=== PATIENT | female | born 1955 | race Caucasian/White ===

== ENCOUNTER 2016-11-25 17:40 | Emergency (ER) | payer BC ==
[2016-11-25] MEDS ORDERED: Sodium Chloride 0.9% 1,000 ML IV ONE (18:34)
[2016-11-25] MEDS ORDERED: Ondansetron 4 MG/2 ML SDV IVPUSH ONE (18:34)
[2016-11-25] MEDS ORDERED: Famotidine 20 MG/2 ML SDV IVPUSH ONE (18:34)
--- NOTE | 2016-11-25 19:08 | EDM.PDOC ---
ED HPI GI/ABDOMINAL - General Chief Complaint: Gastrointestinal Problem Stated Complaint: VOMITING Time Seen by Provider: 11/25/16 18:20 Source of Information: Reports: Patient, Family () History Limitations: Reports: No limitations, Other (vomiting during visit/exam) - History of Present Illness INITIAL COMMENTS - FREE TEXT/NARRATIVE: Caryn is a 61yo female comes into ED tonight with with nausea, vomiting, cough, fever, weakness and generally not feeling well. Symptoms started 3 weeks ago with sinus congestion symptoms that evolved into cough which has progressed over the past one week. She went to [facility] today and was rx'd "levaquin 500", which she took around 10:30am today. Sometime this afternoon she became nauseous and started vomiting. She has not been able to keep anything down since that time, not even water. She feels weak and dizzy, hot and cold. states "Dr. Clayton thought she was starting an early pneumonia". She is coughing but denies chest heaviness, pressure, pain, palpitations, SOB, wheezing. No diarrhea or constipation, no abd or back pain. She has hx of pacemaker, HTN, DM, GERD and asthma. - Related Data Allergies/ADRs: Allergies Allergy/AdvReac Type Severity Reaction Status Date / Time cefadroxil hydrate Allergy Hives Verified 05/31/16 19:17 [From Ultracef] hydrochlorothiazide Allergy Cannot Verified 05/31/16 19:17 Remember nitrofurantoin Allergy Hives Verified 11/25/16 17:51 [From Macrobid] Penicillins Allergy Rash Verified 05/31/16 19:17 flu shot Allergy Other Uncoded 10/05/14 11:43 Home Meds: Home Meds Aspirin [Ecotrin] 81 mg PO DAILY 04/17/14 [History] Losartan [Cozaar] 50 mg PO DAILY 04/17/14 [History] Metoprolol Succinate [Toprol XL] 12.5 mg PO DAILY 08/10/14 [History] Budesonide/Formoterol [Symbicort 80-4.5 MCG] 1 dose INH BID 05/31/16 [History] Levofloxacin [Levaquin] 500 mg PO Q24H #6 tablet 05/31/16 [Rx] Montelukast Sodium [Singulair] 10 mg PO DAILY 05/31/16 [History] Multivitamin [Multi-Vitamin Daily] 1 dose PO DAILY 05/31/16 [History] Pantoprazole Sodium [Protonix] 40 mg PO DAILY 05/31/16 [History] metFORMIN [Glucophage] 850 mg PO DAILY 05/31/16 [History] Past Medical History Cardiovascular History: Reports: High cholesterol, Hypertension Respiratory History: Reports: Asthma Gastrointestinal History: Reports: GERD Genitourinary History: Reports: UTI, recurrent Endocrine/Metabolic History: Reports: Diabetes, type II Social & Family History - Tobacco Use Smoking Status *Q: Never Smoker Second Hand Smoke Exposure: No - Caffeine Use Caffeine Use: Reports: Coffee - Alcohol Use Days Per Week of Alcohol Use: 0 Number of Drinks Per Day: 1 Total Drinks Per Week: 0 - Recreational Drug Use Recreational Drug Use: No ED ROS GENERAL - Review of Systems Review Of Systems: See Below Constitutional: Reports: chills, weakness, fatigue HEENT: Reports: Rhinitis, Sinus problem, Throat pain (sore throat x 3-5 days) Respiratory: Reports: Cough Cardiovascular: Denies: Chest pain, Dyspnea on exertion, Lightheadedness, Orthopnea, Palpitations Endocrine: Reports: other (DM hx; has not checked her sugars today) GI/Abdominal: Reports: Decreased appetite, Nausea, Vomiting. Denies: Abdominal pain, Constipation, Diarrhea, Hematemesis, Hematochezia : Reports: no symptoms Neurological: Reports: No Symptoms ED EXAM, GI/ABD - Physical Exam Exam: See Below Exam Limited By: No limitations General Appearance: alert, WD/WN, no apparent distress Eyes: bilateral: EOMI Ears: normal external exam, hearing grossly normal Nose: normal inspection Throat/Mouth: Normal inspection, Normal lips, Normal gums, Normal voice Head: atraumatic, normocephalic Neck: normal inspection, supple Respiratory/Chest: no respiratory distress, lungs clear, normal breath sounds Cardiovascular: regular rate, rhythm, no murmur, other (trace edema to ankles bilat; varicose veins noted bilat) GI/Abdominal: normal bowel sounds, soft, non tender, no organomegaly, no distention, no mass (Female) Exam: Deferred Rectal (Female) Exam: Deferred Extremities: normal inspection, pedal edema (trace to ankles/pedal) Neurological: alert, oriented, CN II-XII intact, normal cognition, normal gait Psychiatric: normal affect, normal mood Skin Exam: Warm, Dry, Intact, Normal color, No rash Course - Vital Signs Last Recorded V/S: Last Vital Signs Temp 99 F 11/25/16 17:51 Pulse 68 11/25/16 17:51 Resp 18 11/25/16 17:51 BP 164/107 H 11/25/16 17:51 Pulse Ox 97 11/25/16 17:51 - Orders/Labs/Meds Orders: Active Orders 24 hr Category Date Time Status Abdomen 2V AP Flat Upright [CR] Stat Exams 11/25/16 18:34 Taken Chest 2V [CR] Stat Exams 11/25/16 18:34 Taken Labs: Laboratory Tests 11/25/16 11/25/16 11/25/16 Range/Units 18:17 18:17 19:25 WBC 8.65 (3.98-10.04) K/mm3 RBC 4.54 (3.98-5.22) M/mm3 Hgb 13.3 (11.2-15.7) gm/L Hct 38.6 (34.1-44.9) % MCV 85.0 (79.4-94.8) fl MCH 29.3 (25.6-32.2) pg MCHC 34.5 (32.2-35.5) g/dl RDW Std Deviation 41.8 (36.4-46.3) fL Plt Count 224 (182-369) K/mm3 MPV 9.4 (9.4-12.3) fl Neut % (Auto) 73.5 H (34.0-71.1) % Lymph % (Auto) 18.3 L (19.3-51.7) % [place] % (Auto) 7.6 (4.7-12.5) % Eos % (Auto) 0.2 L (0.7-5.8) Baso % (Auto) 0.2 (0.1-1.2) % Neut # (Auto) 6.35 H (1.56-6.13) K/mm3 Lymph # (Auto) 1.58 (1.18-3.74) K/mm3 [place] # (Auto) 0.66 H (0.24-0.36) K/mm3 Eos # (Auto) 0.02 L (0.04-0.36) K/mm3 Baso # (Auto) 0.02 (0.01-0.08) K/mm3 Sodium 136 (136-145) mEq/L Potassium 3.9 (3.5-5.1) mEq/L Chloride 100 (98-107) mEq/L Carbon Dioxide 26 (21-32) mEq/L Anion Gap 13.9 (5-15) BUN 14 (7-18) mg/dL Creatinine 0.8 (0.55-1.02) mg/dL Est Cr Clr Drug Dosing 63.77 mL/min Estimated GFR (MDRD) > 60 (>60) mL/min BUN/Creatinine Ratio 17.5 (14-18) Glucose 184 H (80-115) mg/dL Calcium 9.1 (8.5-10.1) mg/dL Total Bilirubin 0.5 (0.2-1.0) mg/dL AST 30 (15-37) U/L ALT 69 H (14-59) U/L Alkaline Phosphatase 90 (46-116) U/L C-Reactive Protein 4.6 H* (<1.0) mg/dL Total Protein 7.3 (6.4-8.2) g/dl Albumin 3.9 (3.4-5.0) g/dl Globulin 3.4 gm/dL Albumin/Globulin Ratio 1.2 (1-2) Urine Color Yellow (Yellow) Urine Appearance Slt cloudy H (Clear) Urine pH 7.0 (5.0-8.0) Ur Specific [place] 1.025 (1.005-1.030) Urine Protein 1+ H (Negative) Urine Glucose (UA) Negative (Negative) Urine Ketones 2+ H (Negative) Urine Occult Blood Negative (Negative) Urine Nitrite Negative (Negative) Urine Bilirubin Negative (Negative) Urine Urobilinogen 0.2 (0.2-1.0) Ur Leukocyte Esterase Negative (Negative) Urine RBC Not seen (0-5) /hpf Urine WBC 0-5 (0-5) /hpf Ur Squamous Epith Cells 5-10 H (0-5) /hpf Amorphous Sediment Few H (NOT SEEN) /hpf Urine Bacteria Few (FEW) /hpf Urine Mucus Moderate H (FEW) /hpf Meds: Medications Discontinued Medications Generic Name Dose Route Start Last Admin Trade Name Freq PRN Reason Stop Dose Admin Famotidine 20 mg 11/25/16 18:34 11/25/16 18:45 Pepcid IVPUSH 11/25/16 18:35 20 mg ONETIME ONE Administration Sodium Chloride 1,000 mls @ 999 mls/hr 11/25/16 18:34 11/25/16 18:44 Normal Saline IV 11/25/16 19:34 999 mls/hr ONETIME ONE Administration Ondansetron HCl 4 mg 11/25/16 18:34 11/25/16 18:45 Zofran IVPUSH 11/25/16 18:35 4 mg ONETIME ONE Administration - Radiology Interpretation Free Text/Narrative:: CXR without acute infiltrates or consolidation noted by my independent review; awaiting [facility] final review Abdominal films with bowel gas, nonspecific, no air fluid levels or acute findings; by my independent review; awaiting [facility] final review/interp. - Re-Assessments/Exams Free Text/Narrative Re-Assessment/Exam: 11/25/16 19:14 Labs ordered; fluids and IV zofran/pepcid orders placed Free Text/Narrative Re-Assessment/Exam: 11/25/16 19:57 Nausea improved/no further vomiting. 600cc IV bag infused then patient's IV got pulled out, she deferred another IV stick and has been able to tolerate PO fluids now. Reviewed all lab findings and xray findings with patient and tonight. Will discharge her with rx for zofran ODT, she is to continue levaquin PO- if further nausea/vomiting after dose tomorrow she is to stop and contact Dr. Newby office on Sunday. They voice understanding and are in agreeance to POC. Departure - Departure Time of Disposition: 19:58 Disposition: Home, Self-Care 01 Clinical Impression: Nausea and vomiting in adult URI (upper respiratory infection) Qualifiers: URI type: unspecified URI Qualified Code(s): J06.9 - Acute upper respiratory infection, unspecified Instructions: Nausea and Vomiting, Adult, [id number] Forms: ED Department Discharge Additional Instructions: Push fluids Zofran for nausea every 4 hours as needed Continue Levaquin as previously prescribed; if you become nauseated/vomit with next dose, discontinue and contact your primary care provider on Sunday for further instruction. Tylenol if needed for fever/discomfort Pepcid or omeprazole twice daily for the next 3-4 days, tums if needed Return to ER if nausea/vomiting return, other ?'s or concerns - My Orders Last 24 Hours: My Active Orders 11/25/16 18:34 Abdomen 2V AP Flat Upright [CR] Stat Chest 2V [CR] Stat - Assessment/Plan Last 24 Hours: My Active Orders 11/25/16 18:34 Abdomen 2V AP Flat Upright [CR] Stat Chest 2V [CR] Stat
[2016-11-25] MEDS ORDERED: Promethazine 25 MG/ML SDV IM ONE (20:01)
[2016-11-25 20:54] VITALS: BP 148/79
--- NOTE | 2016-11-27 06:52 | CR ---
Chest: Two views of the chest were obtained. Comparison: Previous chest x-ray of 07/19/15. Heart size at the upper limits of normal. Lungs are clear with no acute infiltrates. Mediastinum is within normal limits. Surgical clips overlying the neck are seen. Pacemaker is noted. Impression: 1. Heart size at the upper limits of normal. Other incidental findings. Nothing acute is appreciated on two-view chest x-ray. Diagnostic code #2
--- NOTE | 2016-11-27 06:53 | CR ---
Abdomen: Supine and upright views of the abdomen were obtained. Comparison: No previous abdominal x-ray Findings: Bowel gas pattern appears unremarkable. Calcifications are seen within the pelvis which are most likely due to phleboliths. Mild arterial calcification is noted within the iliac vessels. Minimal degenerative endplate spurring seen within the spine. Surgical clips seen from prior cholecystectomy. No free air is seen. Impression: 1. Nonspecific two-view study of the abdomen as described above. Diagnostic code #2
== END 2016-11-25 20:26 | disposition home or self-care (01) ==
LOC: JD.ED 17:40
DX: R11.2 Nausea with vomiting, unspecified (principal); J06.9 Acute upper respiratory infection, unspecified; I10 Essential (primary) hypertension; J45.909 Unspecified asthma, uncomplicated; K21.9 Gastro-esophageal reflux disease without esophagitis; E11.9 Type 2 diabetes mellitus without complications; Z79.84 Long term (current) use of oral hypoglycemic drugs; Z79.899 Other long term (current) drug therapy; Z79.82 Long term (current) use of aspirin; Z88.7 Allergy status to serum and vaccine; Z88.0 Allergy status to penicillin; Z88.8 Allergy status to other drugs, medicaments and biological substances
CPT/HCPCS: 36415; 71020; 74020; 80053; 81001; 85025; 86140; 96361; 96372; 96374; 96375; 99284; J2405; J2550; J7040

== ENCOUNTER 2017-01-08 13:16 | Emergency (ER) | payer BC ==
--- NOTE | 2017-01-08 13:26 | EDM.PDOC ---
ED HISTORY OF PRESENT ILLNESS - General Chief Complaint: Chest Pain Stated Complaint: CHEST PAINS/LEFT ARM PAIN Time Seen by Provider: 01/08/17 13:23 - History of Present Illness INITIAL COMMENTS - FREE TEXT/NARRATIVE: 61-year-old female presents emergency room with chest pain. Patient describes chest pain as lasting a few seconds certainly no more than 10 or 15 seconds it occurs about every 10 minutes or so it doesn't seem to correlate with rest or activity it can occur with both. This started early this morning and has continued. The patient cannot do anything to trigger it and make it worse. Deep breathing does not aggravate the discomfort. Patient has a history of diabetes treated with oral medications she is treated for hypertension hyperlipidemia. Patient has a remarkable history of having a pacemaker placed sometime back of what sounds like sick sinus syndrome. She had symptomatic bradycardia. - Related Data Allergies/ADRs: Allergies Allergy/AdvReac Type Severity Reaction Status Date / Time cefadroxil hydrate Allergy Hives Verified 01/08/17 13:31 [From Ultracef] hydrochlorothiazide Allergy Cannot Verified 01/08/17 13:31 Remember nitrofurantoin Allergy Hives Verified 01/08/17 13:31 [From Macrobid] Penicillins Allergy Rash Verified 01/08/17 13:31 flu shot Allergy Other Uncoded 01/08/17 13:31 Home Meds: Home Meds Aspirin [Ecotrin] 81 mg PO DAILY 04/17/14 [History] Losartan [Cozaar] 50 mg PO DAILY 04/17/14 [History] Metoprolol Succinate [Toprol XL] 25 mg PO DAILY 08/10/14 [History] Budesonide/Formoterol [Symbicort 80-4.5 MCG] 1 dose INH DAILY 05/31/16 [History] Montelukast Sodium [Singulair] 10 mg PO DAILY 05/31/16 [History] Multivitamin [Multi-Vitamin Daily] 1 dose PO DAILY 05/31/16 [History] Pantoprazole Sodium [Protonix] 40 mg PO DAILY 05/31/16 [History] metFORMIN [Glucophage] 850 mg PO DAILY 05/31/16 [History] Cholecalciferol (Vitamin D3) [Vitamin D3] 1,000 units PO DAILY 01/08/17 [History ] Cranberry Fruit Concentrate [Cran-Max] 500 mg PO DAILY 01/08/17 [History] Gabapentin [Neurontin] 300 mg PO DAILY 01/08/17 [History] Past Medical History Cardiovascular History: Reports: High cholesterol, Hypertension Respiratory History: Reports: Asthma Gastrointestinal History: Reports: GERD Genitourinary History: Reports: UTI, recurrent Endocrine/Metabolic History: Reports: Diabetes, type II Social & Family History - Tobacco Use Smoking Status *Q: Never Smoker Second Hand Smoke Exposure: No - Caffeine Use Caffeine Use: Reports: Coffee - Alcohol Use Days Per Week of Alcohol Use: 0 Number of Drinks Per Day: 1 Total Drinks Per Week: 0 - Recreational Drug Use Recreational Drug Use: No ED ROS GENERAL - Review of Systems Review Of Systems: See Below Constitutional: Reports: no symptoms HEENT: Reports: No symptoms Respiratory: Reports: Pleuritic Chest Pain. Denies: Shortness of Breath, Cough , Sputum Cardiovascular: Reports: Chest pain GI/Abdominal: Reports: No symptoms : Reports: no symptoms Neurological: Reports: No Symptoms ED EXAM, GENERAL - Physical Exam Exam: See Below Exam Limited By: No limitations General Appearance: alert, no apparent distress Eye Exam: bilateral eye: normal inspection Ears: normal external exam, normal canal, hearing grossly normal, normal TMs Nose: normal inspection Throat/Mouth: Normal inspection, Normal lips, Normal teeth, Normal gums, Normal oropharynx, Normal voice, No airway compromise Head: atraumatic, normocephalic Neck: normal inspection, supple, non-tender, full range of motion. No: lymphadenopathy (L), lymphadenopathy (R) Respiratory/Chest: no respiratory distress, lungs clear, normal breath sounds Cardiovascular: regular rate, rhythm, no edema, no murmur GI/Abdominal: normal bowel sounds, soft, non tender, no organomegaly, no distention, no abnormal bruit, no mass Neurological: alert, oriented, normal cognition Course - Vital Signs Last Recorded V/S: Last Vital Signs Temp 36.3 C 01/08/17 13:20 Pulse 77 01/08/17 13:20 Resp 18 01/08/17 13:20 BP 161/93 H 01/08/17 13:20 Pulse Ox 100 01/08/17 13:20 - Orders/Labs/Meds Orders: Active Orders 24 hr Category Date Time Status EKG 12 Lead [EKG Documentation Completion] [RC] STAT Care 01/08/17 13:26 Active Labs: Laboratory Tests 05/04/1901/08/17 01/08/17 Range/Units 13:40 14:25 14:25 WBC 7.95 (3.98-10.04) K/mm3 RBC 4.86 (3.98-5.22) M/mm3 Hgb 13.9 (11.2-15.7) gm/L Hct 42.8 (34.1-44.9) % MCV 88.1 (79.4-94.8) fl MCH 28.6 (25.6-32.2) pg MCHC 32.5 (32.2-35.5) g/dl RDW Std Deviation 44.8 (36.4-46.3) fL Plt Count 283 (182-369) K/mm3 MPV 10.4 (9.4-12.3) fl Neutrophils % (Manual) 66 H (40-60) % Band Neutrophils % 0 (0-10) % Lymphocytes % (Manual) 24 (20-40) % Atypical Lymphs % 0 % Monocytes % (Manual) 7 (2-10) % Eosinophils % (Manual) 3 (0.7-5.8) % Basophils % (Manual) 0 L (0.1-1.2) Platelet Estimate Adequate Plt Morphology Comment Normal RBC Morph Comment Normal PT 10.4 (8.0-13.0) SECONDS INR 0.96 APTT 26 (22-36) SECONDS Sodium 140 (136-145) mEq/L Potassium 4.0 (3.5-5.1) mEq/L Chloride 104 (98-107) mEq/L Carbon Dioxide 29 (21-32) mEq/L Anion Gap 11.0 (5-15) BUN 20 H (7-18) mg/dL Creatinine 1.0 (0.55-1.02) mg/dL Est Cr Clr Drug Dosing 51.02 mL/min Estimated GFR (MDRD) 56 (>60) mL/min BUN/Creatinine Ratio 20.0 H (14-18) Glucose 131 H (80-115) mg/dL Calcium 9.3 (8.5-10.1) mg/dL Total Bilirubin 0.4 (0.2-1.0) mg/dL AST 31 (15-37) U/L ALT 59 (14-59) U/L Alkaline Phosphatase 89 (46-116) U/L Troponin I < 0.017 (0.00-0.056) ng/mL Total Protein 7.3 (6.4-8.2) g/dl Albumin 3.8 (3.4-5.0) g/dl Globulin 3.5 gm/dL Albumin/Globulin Ratio 1.1 (1-2) Meds: Medications Discontinued Medications Generic Name Dose Route Start Last Admin Trade Name Perri PRN Reason Stop Dose Admin Aspirin 324 mg 01/08/17 13:39 01/08/17 13:46 Aspirin PO 01/08/17 13:40 324 mg ONETIME ONE Administration - Re-Assessments/Exams Free Text/Narrative Re-Assessment/Exam: 01/08/17 16:19 chest x-ray is unremarkable EKG shows an atrial paced rhythm without any evidence of ischemia she has no Q waves. Labs show negative troponin. Otherwise unremarkable the patient has a heart score of 3. 2 points given for her diabetes hypertension hyperlipidemia her ages 61 which gives her a point. Discussed the risk of major acute coronary event at 1.7% and the implications of this. I offered we did recheck a second troponin which limits this even more however the patient would like to go home. She is in agreement to followup this week with an outpatient stress Cardiolite. Departure - Departure Time of Disposition: 16:22 Disposition: Home, Self-Care 01 Clinical Impression: Atypical chest pain Forms: ED Department Discharge Additional Instructions: return to emergency room with any questions or problems. Return with worsening or persistent chest pain. Followup for your stress Cardiolite, this is a stress test for your heart. You should be contacted as to time for this. Followup with your regular physician a couple of days after this is done. - My Orders Last 24 Hours: My Active Orders 01/08/17 13:26 EKG 12 Lead [EKG Documentation Completion] [RC] STAT - Assessment/Plan Last 24 Hours: My Active Orders 01/08/17 13:26 EKG 12 Lead [EKG Documentation Completion] [RC] STAT
[2017-01-08] MEDS ORDERED: Aspirin 81 MG Tab.Chew PO ONE (13:39)
--- NOTE | 2017-01-08 14:51 | CR ---
Chest: Portable view of the chest was obtained. Comparison: Previous chest x-ray of 11/25/16. Heart size and mediastinum are within normal limits for portable technique. Pacemaker is noted. Lungs are clear. Bony structures are grossly intact. Surgical clips are seen at the base of the neck or within the cervical spine. Impression: 1. Incidental findings. Nothing acute is appreciated on portable chest x-ray. Diagnostic code #2
[2017-01-08 16:39] VITALS: BP 161/87
== END 2017-01-08 16:30 | disposition home or self-care (01) ==
LOC: JD.ED 13:16
DX: R07.89 Other chest pain (principal); I10 Essential (primary) hypertension; E78.00 Pure hypercholesterolemia, unspecified; J45.909 Unspecified asthma, uncomplicated; K21.9 Gastro-esophageal reflux disease without esophagitis; E11.9 Type 2 diabetes mellitus without complications; Z79.82 Long term (current) use of aspirin; Z79.84 Long term (current) use of oral hypoglycemic drugs; Z79.899 Other long term (current) drug therapy; Z88.0 Allergy status to penicillin; Z88.8 Allergy status to other drugs, medicaments and biological substances; Z88.7 Allergy status to serum and vaccine; Z95.0 Presence of cardiac pacemaker
CPT/HCPCS: 36415; 71010; 80053; 84484; 85025; 85610; 85730; 93005; 99285; A9270; 99283

== ENCOUNTER 2017-06-12 22:31 | Emergency (ER) | payer BC ==
[2017-06-12 22:40] VITALS: BP 175/91
--- NOTE | 2017-06-13 00:52 | EDM.PDOC ---
ED HPI GENERAL MEDICAL PROBLEM - General Chief Complaint: Chest Pain Stated Complaint: CHEST PAIN Time Seen by Provider: 06/12/17 23:33 Source of Information: Reports: Patient, Family (), RN Notes Reviewed History Limitations: Reports: No Limitations - History of Present Illness INITIAL COMMENTS - FREE TEXT/NARRATIVE: The patient states that she developed left-sided chest pain, left scapular pain , and left shoulder pain around 22:00 tonight while going to the bathroom. The patient had previously been in bed. She describes the pain as sharp in character. It was a pain, not a discomfort. It was not modifiable. The patient reports that she has been dyspneic for about one week, and that it is no worse tonight. She denies recent diaphoresis, nausea, or sense of impending doom. No prior similar symptoms. Review of the medical records indicates the patient had a negative myocardial perfusion stress test on 01/11/2017. The patient reports that her entire chest and left lower back has had the sensation of heartburn or an asthma exacerbation for the past week. She saw her PCP, Dr. Samia Andrea, where an ECG and chest radiograph were done, and reported to the patient is negative. No treatment was given, but the patient was instructed to restart her Flovent. She is scheduled to follow-up with her hand singer, Dr. Vazquez. Treatments [employer]: Reports: Aspirin Left Chest Pain Score (Numeric/FACES): 3 - Related Data Allergies Allergy/AdvReac Type Severity Reaction Status Date / Time cefadroxil hydrate Allergy Hives Verified 01/08/17 13:31 [From Ultracef] hydrochlorothiazide Allergy Cannot Verified 01/08/17 13:31 Remember nitrofurantoin Allergy Hives Verified 01/08/17 13:31 [From Macrobid] Penicillins Allergy Rash Verified 01/08/17 13:31 flu shot Allergy Other Uncoded 01/08/17 13:31 Home Meds: Home Meds Aspirin [Ecotrin] 81 mg PO DAILY 04/17/14 [History] Losartan [Cozaar] 50 mg PO DAILY 04/17/14 [History] Metoprolol Succinate [Toprol XL] 25 mg PO DAILY 08/10/14 [History] Montelukast Sodium [Singulair] 10 mg PO DAILY 05/31/16 [History] Multivitamin [Multi-Vitamin Daily] 1 dose PO DAILY 05/31/16 [History] Pantoprazole Sodium [Protonix] 40 mg PO DAILY 05/31/16 [History] metFORMIN [Glucophage] 850 mg PO DAILY 05/31/16 [History] Cholecalciferol (Vitamin D3) [Vitamin D3] 1,000 units PO DAILY 01/08/17 [History ] Cranberry Fruit Concentrate [Cran-Max] 500 mg PO DAILY 01/08/17 [History] Gabapentin [Neurontin] 300 mg PO DAILY 01/08/17 [History] Fluticasone Propionate [Flovent Hfa] 1 - 2 puff INH BTNUNITS 06/12/17 [History] Past Medical History Cardiovascular History: Reports: Arrhythmia (3rd degree AVB?), High Cholesterol , Hypertension Respiratory History: Reports: Asthma Gastrointestinal History: Reports: Colon Polyp, GERD, Other (See Below) ( Garrettzki ring) Genitourinary History: Reports: Urinary Incontinence (stress incontinence) Musculoskeletal History: Reports: Osteoarthritis Neurological History: Reports: Other (See Below) ([place] 2011) Endocrine/Metabolic History: Reports: Diabetes, Type II, Obesity/BMI 30+ Oncologic (Cancer) History: Reports: Other (See Below) (Carcinoid left lung) - Past Surgical History HEENT Surgical History: Reports: Naso-Sinus Surgery, Oral Surgery ([place] teeth extraction), Tonsillectomy Cardiovascular Surgical History: Reports: Pacer, Other (See Below) (Coronary angiogram 2008 was "clean") Respiratory Surgical History: Reports: Other (See Below) (Left carcinoid tumor excised) GI Surgical History: Reports: Cholecystectomy, Colonoscopy, EGD Female Surgical History: Reports: D&C (x 1), Hysterectomy, Tubal Ligation Musculoskeletal Surgical History: Reports: Arthroscopic Knee Social & Family History - Family History Family Medical History: Noncontributory - Tobacco Use Smoking Status *Q: Never Smoker Second Hand Smoke Exposure: No - Caffeine Use Caffeine Use: Reports: None - Alcohol Use Alcohol Use History: Yes Days Per Week of Alcohol Use: 0 Number of Drinks Per Day: 1 Total Drinks Per Week: 0 Alcohol Use Frequency: Socially - Recreational Drug Use Recreational Drug Use: No - Living Situation & Occupation Living situation: Reports: , with Spouse Occupation: Employed ([employer]) ED [facility] - Review of Systems Review Of Systems: See Below Constitutional: Reports: No Symptoms HEENT: Reports: No Symptoms Respiratory: Reports: Shortness of Breath, Cough Cardiovascular: Reports: No Symptoms Endocrine: Reports: No Symptoms GI/Abdominal: Reports: No Symptoms : Reports: No Symptoms Musculoskeletal: Reports: No Symptoms Skin: Reports: No Symptoms Neurological: Reports: No Symptoms Psychiatric: Reports: No Symptoms Hematologic/Lymphatic: Reports: No Symptoms Immunologic: Reports: No Symptoms ED EXAM, GENERAL - Physical Exam Exam: See Below Exam Limited By: No Limitations General Appearance: Alert, WD/WN, No Apparent Distress Eye Exam: Bilateral Eye: Normal Inspection Ears: Normal External Exam, Hearing Grossly Normal Nose: Normal Inspection, No Blood Throat/Mouth: Normal Inspection, Normal Lips, Normal Voice, No Airway Compromise Head: Atraumatic, Normocephalic Neck: Normal Inspection, Full Range of Motion Respiratory/Chest: No Respiratory Distress, Lungs Clear, Normal Breath Sounds, No Accessory Muscle Use, Other (Tenderness to palpation of the left chest, where the patient had indicated she was having pain, however, she stated that the pain induced with palpation is different than the pain that brought her to the ED.) Cardiovascular: Normal Peripheral Pulses, Regular Rate, Rhythm, No Gallop, No JVD, No Murmur, No Rub Peripheral Pulses: 4+: Radial (L), Radial (R) GI/Abdominal: Normal Bowel Sounds, Soft, Non-Tender, No Organomegaly, No Distention, No Abnormal Bruit, No Mass, Other (Obese) (Female) Exam: Deferred Rectal (Female) Exam: Deferred Back Exam: Normal Inspection, Full Range of Motion, NT Extremities: Normal Inspection, Normal Range of Motion, No Pedal Edema, Normal Capillary Refill Neurological: Alert, Oriented, Normal Cognition, No Motor/Sensory Deficits Psychiatric: Normal Affect Skin Exam: Warm, Dry, Intact, Normal Color, No Rash EKG INTERPRETATION EKG Date: 06/12/17 Time: 22:37 Rhythm: NSR Rate (Beats/Min): 72 [place]: Normal P-Wave: Present QRS: Normal ST-T: Normal QT: Normal Comparison: No Change (01/08/2017) Course - Vital Signs Last Recorded V/S: Last Vital Signs Temp 36.2 C 06/12/17 22:36 Pulse 70 06/12/17 22:36 Resp 17 06/12/17 22:36 BP 175/91 H 06/12/17 22:36 Pulse Ox 99 06/12/17 22:36 - Orders/Labs/Meds Labs: Laboratory Tests 06/12/17 06/12/17 06/12/17 Range/Units 22:50 22:50 22:50 WBC 17.16 H (3.98-10.04) K/mm3 RBC 4.59 (3.98-5.22) M/mm3 Hgb 13.3 (11.2-15.7) gm/L Hct 40.1 (34.1-44.9) % MCV 87.4 (79.4-94.8) fl MCH 29.0 (25.6-32.2) pg MCHC 33.2 (32.2-35.5) g/dl RDW Std Deviation 43.2 (36.4-46.3) fL Plt Count 270 (182-369) K/mm3 MPV 10.1 (9.4-12.3) fl Neut % (Auto) 69.8 (34.0-71.1) % Lymph % (Auto) 19.2 L (19.3-51.7) % [place] % (Auto) 9.8 (4.7-12.5) % Eos % (Auto) 0.7 (0.7-5.8) Baso % (Auto) 0.1 (0.1-1.2) % Neut # (Auto) 11.97 H (1.56-6.13) K/mm3 Lymph # (Auto) 3.29 (1.18-3.74) K/mm3 [place] # (Auto) 1.69 H (0.24-0.36) K/mm3 Eos # (Auto) 0.12 (0.04-0.36) K/mm3 Baso # (Auto) 0.02 (0.01-0.08) K/mm3 Manual Slide Review Normal smear PT 10.3 (8.0-13.0) SECONDS INR 0.95 APTT 24 (22-36) SECONDS D-Dimer, Quantitative (0.19-0.59) mg/L Sodium (136-145) mEq/L Potassium (3.5-5.1) mEq/L Chloride (98-107) mEq/L Carbon Dioxide (21-32) mEq/L Anion Gap (5-15) BUN (7-18) mg/dL Creatinine (0.55-1.02) mg/dL Est Cr Clr Drug Dosing mL/min Estimated GFR (MDRD) (>60) mL/min BUN/Creatinine Ratio (14-18) Glucose (80-115) mg/dL Calcium (8.5-10.1) mg/dL Total Bilirubin (0.2-1.0) mg/dL AST (15-37) U/L ALT (14-59) U/L Alkaline Phosphatase (46-116) U/L Troponin I < 0.017 (0.00-0.056) ng/mL NT-Pro-B Natriuret Pep (0-125) pg/mL Total Protein (6.4-8.2) g/dl Albumin (3.4-5.0) g/dl Globulin gm/dL Albumin/Globulin Ratio (1-2) Urine Color (Yellow) Urine Appearance (Clear) Urine pH (5.0-8.0) Ur Specific [place] (1.005-1.030) Urine Protein (Negative) Urine Glucose (UA) (Negative) Urine Ketones (Negative) Urine Occult Blood (Negative) Urine Nitrite (Negative) Urine Bilirubin (Negative) Urine Urobilinogen (0.2-1.0) Ur Leukocyte Esterase (Negative) Urine RBC (0-5) /hpf Urine WBC (0-5) /hpf Ur Epithelial Cells (0-5) /hpf Urine Bacteria (FEW) /hpf Urine Mucus (FEW) /hpf 06/12/17 06/12/17 06/12/17 Range/Units 22:50 22:50 22:50 WBC (3.98-10.04) K/mm3 RBC (3.98-5.22) M/mm3 Hgb (11.2-15.7) gm/L Hct (34.1-44.9) % MCV (79.4-94.8) fl MCH (25.6-32.2) pg MCHC (32.2-35.5) g/dl RDW Std Deviation (36.4-46.3) fL Plt Count (182-369) K/mm3 MPV (9.4-12.3) fl Neut % (Auto) (34.0-71.1) % Lymph % (Auto) (19.3-51.7) % [place] % (Auto) (4.7-12.5) % Eos % (Auto) (0.7-5.8) Baso % (Auto) (0.1-1.2) % Neut # (Auto) (1.56-6.13) K/mm3 Lymph # (Auto) (1.18-3.74) K/mm3 [place] # (Auto) (0.24-0.36) K/mm3 Eos # (Auto) (0.04-0.36) K/mm3 Baso # (Auto) (0.01-0.08) K/mm3 Manual Slide Review PT (8.0-13.0) SECONDS INR APTT (22-36) SECONDS D-Dimer, Quantitative 0.54 (0.19-0.59) mg/L Sodium 139 (136-145) mEq/L Potassium 4.3 (3.5-5.1) mEq/L Chloride 102 (98-107) mEq/L Carbon Dioxide 27 (21-32) mEq/L Anion Gap 14.3 (5-15) BUN 33 H (7-18) mg/dL Creatinine 1.1 H (0.55-1.02) mg/dL Est Cr Clr Drug Dosing 46.38 mL/min Estimated GFR (MDRD) 50 (>60) mL/min BUN/Creatinine Ratio 30.0 H (14-18) Glucose 147 H (80-115) mg/dL Calcium 9.7 (8.5-10.1) mg/dL Total Bilirubin 0.3 (0.2-1.0) mg/dL AST 14 L (15-37) U/L ALT 31 (14-59) U/L Alkaline Phosphatase 86 (46-116) U/L Troponin I (0.00-0.056) ng/mL NT-Pro-B Natriuret Pep 100 (0-125) pg/mL Total Protein 7.5 (6.4-8.2) g/dl Albumin 3.8 (3.4-5.0) g/dl Globulin 3.7 gm/dL Albumin/Globulin Ratio 1.0 (1-2) Urine Color (Yellow) Urine Appearance (Clear) Urine pH (5.0-8.0) Ur Specific [place] (1.005-1.030) Urine Protein (Negative) Urine Glucose (UA) (Negative) Urine Ketones (Negative) Urine Occult Blood (Negative) Urine Nitrite (Negative) Urine Bilirubin (Negative) Urine Urobilinogen (0.2-1.0) Ur Leukocyte Esterase (Negative) Urine RBC (0-5) /hpf Urine WBC (0-5) /hpf Ur Epithelial Cells (0-5) /hpf Urine Bacteria (FEW) /hpf Urine Mucus (FEW) /hpf 06/13/17 Range/Units 00:45 WBC (3.98-10.04) K/mm3 RBC (3.98-5.22) M/mm3 Hgb (11.2-15.7) gm/L Hct (34.1-44.9) % MCV (79.4-94.8) fl MCH (25.6-32.2) pg MCHC (32.2-35.5) g/dl RDW Std Deviation (36.4-46.3) fL Plt Count (182-369) K/mm3 MPV (9.4-12.3) fl Neut % (Auto) (34.0-71.1) % Lymph % (Auto) (19.3-51.7) % [place] % (Auto) (4.7-12.5) % Eos % (Auto) (0.7-5.8) Baso % (Auto) (0.1-1.2) % Neut # (Auto) (1.56-6.13) K/mm3 Lymph # (Auto) (1.18-3.74) K/mm3 [place] # (Auto) (0.24-0.36) K/mm3 Eos # (Auto) (0.04-0.36) K/mm3 Baso # (Auto) (0.01-0.08) K/mm3 Manual Slide Review PT (8.0-13.0) SECONDS INR APTT (22-36) SECONDS D-Dimer, Quantitative (0.19-0.59) mg/L Sodium (136-145) mEq/L Potassium (3.5-5.1) mEq/L Chloride (98-107) mEq/L Carbon Dioxide (21-32) mEq/L Anion Gap (5-15) BUN (7-18) mg/dL Creatinine (0.55-1.02) mg/dL Est Cr Clr Drug Dosing mL/min Estimated GFR (MDRD) (>60) mL/min BUN/Creatinine Ratio (14-18) Glucose (80-115) mg/dL Calcium (8.5-10.1) mg/dL Total Bilirubin (0.2-1.0) mg/dL AST (15-37) U/L ALT (14-59) U/L Alkaline Phosphatase (46-116) U/L Troponin I (0.00-0.056) ng/mL NT-Pro-B Natriuret Pep (0-125) pg/mL Total Protein (6.4-8.2) g/dl Albumin (3.4-5.0) g/dl Globulin gm/dL Albumin/Globulin Ratio (1-2) Urine Color Yellow (Yellow) Urine Appearance Clear (Clear) Urine pH 6.0 (5.0-8.0) Ur Specific [place] 1.015 (1.005-1.030) Urine Protein Negative (Negative) Urine Glucose (UA) Negative (Negative) Urine Ketones Negative (Negative) Urine Occult Blood Negative (Negative) Urine Nitrite Negative (Negative) Urine Bilirubin Negative (Negative) Urine Urobilinogen 0.2 (0.2-1.0) Ur Leukocyte Esterase Negative (Negative) Urine RBC Not seen (0-5) /hpf Urine WBC 0-5 (0-5) /hpf Ur Epithelial Cells 0-5 (0-5) /hpf Urine Bacteria Few (FEW) /hpf Urine Mucus Not seen (FEW) /hpf - Re-Assessments/Exams Free Text/Narrative Re-Assessment/Exam: 06/13/17 00:10 Two-view chest radiograph appears to be grossly normal. Cardiac silhouette is is at the upper limits of normal. No pulmonary vascular congestion. No pleural effusions. No focal infiltrate. No pneumothorax. A left-sided 2- chamber pacer is noted. Formal read per the Radiologist pending. 06/13/17 01:44 Test results discussed with the patient and her . Today's workup is entirely unremarkable, with the exception of a WBC count elevated at 17.16 and her blood glucose being elevated at 147. The patient notes that she had steroid injections of her knees recently. As per the history of present illness, the patient had a negative myocardial perfusion stress test on 01/11/2017. I suspect that her current chest pain is musculoskeletal in etiology, although the patient believes that it is likely due to GERD, which is possible. I explained that sometimes patient's PPIs a single he stopped working, and that they need to be switched to a different one. She states that she will be undergoing an EGD within a month. Departure - Departure Time of Disposition: :49 Disposition: Home, Self-Care 01 Condition: Good Clinical Impression: Non-cardiac chest pain Instructions: Nonspecific Chest Pain Referrals: Samia Andrea MD [Primary Care Provider] - Forms: ED Department Discharge Additional Instructions: You were seen in the emergency room for left-sided chest pain going to your left shoulder blade and left shoulder. Workup in the ER included blood work, an ECG, and a chest x-ray. Your workup was remarkable for an elevated WBC count of 17.16, and elevated blood sugar of 147. Recent steroid injections may be responsible for both, although you have a known history of diabetes. There is no finding that you have an infection. The remainder of her workup was entirely unremarkable. Your chest pain was MOST LIKELY musculoskeletal in etiology, although GERD is possible. We recommend that you notify the office of your PCP, Dr. Samia Andrea, of your ER visit. If any other problems, please do not hesitate to return to the ER.
--- NOTE | 2017-06-13 08:21 | CR ---
Chest: Two views of the chest were obtained. Comparison: Previous chest x-ray of 01/08/17. Heart size is normal. Mild tortuosity of the thoracic aorta is seen. Previous cervical spine surgery is noted. Bichamber pacemaker is seen. Lungs are clear with no acute infiltrates. Slight degenerative spurring is noted within the lower thoracic spine. Impression: 1. Nothing acute is identified on two-view chest x-ray. Diagnostic code #2
== END 2017-06-13 02:07 | disposition home or self-care (01) ==
LOC: JD.ED 22:31
DX: R07.89 Other chest pain (principal); E78.00 Pure hypercholesterolemia, unspecified; I10 Essential (primary) hypertension; J45.909 Unspecified asthma, uncomplicated; K21.9 Gastro-esophageal reflux disease without esophagitis; E11.9 Type 2 diabetes mellitus without complications; Z88.0 Allergy status to penicillin; Z79.82 Long term (current) use of aspirin; Z79.899 Other long term (current) drug therapy; Z88.8 Allergy status to other drugs, medicaments and biological substances
CPT/HCPCS: 36415; 71020; 71020-26; 80053; 81001; 83880; 84484; 85025; 85379; 85610; 85730; 93005; 93010; 99285-25

== ENCOUNTER 2017-06-27 06:55 | Day surgery (SDC) | payer BC ==
[~2017-06-27 06:55] MED LIST: Lactated Ringers 1,000 ML IV SCH; Lidocaine 1%/Sod Bicarbonate in NS 8.4% 1 ML Syringe IV PRN; Sodium Chloride 0.9% 10 ML Syringe FLUSH PRN
[2017-06-27] MEDS ORDERED: fentaNYL 100 MCG/2 ML SDV ONE (07:27)
[2017-06-27] MEDS ORDERED: Midazolam 1 MG/ML 2 ML SDV ONE (07:27)
[2017-06-27] MEDS ORDERED: Propofol 200 MG/20 ML SDV ONE ×2 (07:27→08:10)
[2017-06-27] MEDS ORDERED: Lidocaine 1% 4 ML ONE (07:29)
--- NOTE | 2017-06-27 07:36 | PCM.PREANE ---
Preanesthetic Assessment - Anesthesia/Transfusion/Family Hx Anesthesia History: Prior Anesthesia Reaction (nausea) Family History of Anesthesia Reaction: Yes (nausea) Transfusion History: No Prior Transfusion(s) - Review of Systems General: No Symptoms Pulmonary: No Symptoms Cardiovascular: Dyspnea on Exertion Gastrointestinal: Other (heart burn) Neurological: Numbness (bilateral legs) Other: Reports: Diabetes (137 blood suger this am) - Physical Assessment NPO Status Date: 06/26/17 NPO Status Time: 00:00 Pulse: 77 O2 Sat by Pulse Oximetry: 95 Respiratory Rate: 16 Blood Pressure: 150/83 Temperature: 36.3 C Height: 1.63 m Weight: 115.666 kg ASA Class: 2 Mental Status: Alert & Oriented x3 Airway Class: Mallampati = 2 Dentition: Reports: Normal Dentition Thyro-Mental Finger Breadths: 3 Mouth Opening Finger Breadths: 3 ROM/Head Extension: Full Lungs: Clear to Auscultation, Normal Respiratory Effort Cardiovascular: Regular Rate, Irregular Rhythm - Lab Values: on chart - Imaging/EKG Impressions: on chart - Allergies Allergies/Adverse Reactions: Allergies Allergy/AdvReac Type Severity Reaction Status Date / Time cefadroxil hydrate Allergy Hives Verified 06/26/17 13:38 [From Ultracef] hydrochlorothiazide Allergy Cannot Verified 06/26/17 13:38 Remember influenza virus vaccine, Allergy Cannot Verified 06/26/17 13:38 specific Remember nitrofurantoin Allergy Hives Verified 06/26/17 13:38 [From Macrobid] Penicillins Allergy Rash Verified 06/26/17 13:38 - Blood Blood Available: No Product(s) Available: None - Anesthesia Plan Pre-Op Medication Ordered: Beta Marito Beta Marito: Metoprolol Med Last Dose Date: 06/27/17 Med Last Dose Time: 06:30 - Acknowledgements Anesthesia Type Planned: MAC Pt an Appropriate Candidate for the Planned Anesthesia: Yes Alternatives and Risks of Anesthesia Discussed w Pt/Guardian: Yes Pt/Guardian Understands and Agrees with Anesthesia Plan: Yes PreAnesthesia Questionnaire HEENT History: Reports: Allergic Rhinitis, Impaired Vision Cardiovascular History: Reports: High Cholesterol, Hypertension Other Cardiovascular History: bradycardia, palpitations, diastolic dysfunction, mitral valve regurgitation Respiratory History: Reports: Asthma, Sleep Apnea Gastrointestinal History: Reports: Colon Polyp, GERD, Other (See Below) Other Gastrointestinal History: schatzki's ring Genitourinary History: Reports: None, UTI, Recurrent ELECTRICIAN FRONT History: Reports: None, Other (See Below) Musculoskeletal History: Reports: Fibromyalgia, Osteoarthritis, Other (See Below ) Other Musculoskeletal History: carpal tunnel syndrome, thoracid degenrative disc disease, polyradiculopathy, bialter chronic knee pain, trochanteric bursitis of bilateral hips, right [id number] impingments, right supraspinatus tendonitis, polyarthralgia, it band sydnrome Neurological History: Reports: Neuropathy, Peripheral, Other (See Below) Other Neuro History: nerve biopsy, hx guillion-barre in 2011, fuentes's palsy, neroma, leg paresthesia Psychiatric History: Reports: Other (See Below) Other Psychiatric History: chronic fatigue Endocrine/Metabolic History: Reports: Diabetes, Type II, Obesity/BMI 30+ Hematologic History: Reports: Other (See Below) Other Hematologic History: easily bleeds, hyponatremia Immunologic History: Reports: None Oncologic (Cancer) History: Reports: Lung, Other (See Below) Other Oncologic History: carcinoid tumor left lung removed Dermatologic History: Reports: None - Past Surgical History Head Surgeries/Procedures: Reports: None HEENT Surgical History: Reports: Naso-Sinus Surgery, Tonsillectomy, Other (See Below) Cardiovascular Surgical History: Reports: Pacer Respiratory Surgical History: Reports: Other (See Below) Other Respiratory Surgeries/Procedures: bronchoscopy, throacotomy with wedge resection GI Surgical History: Reports: Cholecystectomy, Colonoscopy, EGD Female Surgical History: Reports: D&C, Hysterectomy, Tubal Ligation Male Surgical History: Reports: None Endocrine Surgical History: Reports: None Neurological Surgical History: Reports: None Musculoskeletal Surgical History: Reports: Arthroscopic Knee, Arthroscopic Procedure, Other (See Below) Other Musculoskeletal Surgeries/Procedures:: C5-C6 discectomy and fusion , right foot spur removal Oncologic Surgical History: Reports: Lobectomy Dermatological Surgical History: Reports: None - SUBSTANCE USE Smoking Status *Q: Never Smoker Second Hand Smoke Exposure: No Days Per Week of Alcohol Use: 0 Number of Drinks Per Day: 1 Total Drinks Per Week: 0 Recreational Drug Use History: No - HOME MEDS Home Medications: Home Meds Aspirin [Ecotrin] 81 mg PO DAILY 04/17/14 [History] Losartan [Cozaar] 50 mg PO DAILY 04/17/14 [History] Metoprolol Succinate [Toprol XL] 25 mg PO DAILY 08/10/14 [History] Montelukast Sodium [Singulair] 10 mg PO DAILY 05/31/16 [History] Multivitamin [Multi-Vitamin Daily] 1 dose PO DAILY 05/31/16 [History] Pantoprazole Sodium [Protonix] 40 mg PO BID 05/31/16 [History] metFORMIN [Glucophage] 850 mg PO DAILY 05/31/16 [History] Albuterol [IJP: Ventolin HFA] 1 - 2 puff INH Q4H PRN 06/26/17 [History] Rosuvastatin Calcium [Rosuvastatin Calcium] 10 mg PO DAILY 06/26/17 [History] - CURRENT (IN HOUSE) MEDS Current Meds: Current Medications Lactated Ringer's (Ringers, Lactated) 1,000 mls @ 125 mls/hr IV ASDIRECTED SELENE Lidocaine/Sodium Bicarbonate (Buffered Lidocaine 1% In Ns 8.4%) 0.25 ml IV ONETIME PRN PRN Reason: Prior to IV Start Sodium Chloride (Saline Flush) 10 ml FLUSH ASDIRECTED PRN PRN Reason: Keep Vein Open Discontinued Medications Fentanyl (Sublimaze) Confirm Administered Dose 100 mcg .ROUTE .STK-MED ONE Stop: 06/27/17 07:28 Lidocaine HCl (Xylocaine-Mpf 1%) Confirm Administered Dose 4 mls @ as directed .ROUTE .STK-MED ONE Stop: 06/27/17 07:30 Midazolam HCl (Versed 1 Mg/Ml) Confirm Administered Dose 2 mg .ROUTE .STK-MED ONE Stop: 06/27/17 07:28 Propofol (Diprivan 20 Ml) Confirm Administered Dose 200 mg .ROUTE .STK-MED ONE Stop: 06/27/17 07:28
[2017-06-27 08:36] VITALS: BP 122/77
== END 2017-06-27 09:10 | disposition home or self-care (01) ==
LOC: JD.SDS 06:55
PROVIDERS: ATTEND Surgery
DX: Z12.11 Encounter for screening for malignant neoplasm of colon (principal); K20.9 Esophagitis, unspecified; Z86.010 Personal history of colon polyps; K21.9 Gastro-esophageal reflux disease without esophagitis; I10 Essential (primary) hypertension; E11.42 Type 2 diabetes mellitus with diabetic polyneuropathy; M15.9 Polyosteoarthritis, unspecified; G47.33 Obstructive sleep apnea (adult) (pediatric); M79.7 Fibromyalgia; E66.01 Morbid (severe) obesity due to excess calories; J45.909 Unspecified asthma, uncomplicated; E78.00 Pure hypercholesterolemia, unspecified; Z87.440 Personal history of urinary (tract) infections; Z85.110 Personal history of malignant carcinoid tumor of bronchus and lung; Z98.1 Arthrodesis status; Z95.0 Presence of cardiac pacemaker; Z98.51 Tubal ligation status; Z90.2 Acquired absence of lung [part of]; Z90.710 Acquired absence of both cervix and uterus; Z98.890 Other specified postprocedural states; Z79.82 Long term (current) use of aspirin; Z79.84 Long term (current) use of oral hypoglycemic drugs; Z79.899 Other long term (current) drug therapy; Z88.0 Allergy status to penicillin; Z88.1 Allergy status to other antibiotic agents; Z88.7 Allergy status to serum and vaccine; Z88.8 Allergy status to other drugs, medicaments and biological substances; Z68.42 Body mass index [BMI] 45.0-49.9, adult
CPT/HCPCS: 43239; 45378; 82962; J2250; J3010; J7120; 00810; J2704

== ENCOUNTER 2019-06-01 02:36 | Emergency (ER) | payer BC ==
[2019-06-01 02:47] VITALS: BP 187/92; PULSE 60
[2019-06-01] MEDS ORDERED: Alum Hydrox/Mag Hydrox/Simeth 30 ML, Lidocaine 2% 15 ML PO ONE ×4 (03:16→04:06)
--- NOTE | 2019-06-01 03:21 | EDM.PDOC ---
ED HPI GENERAL MEDICAL PROBLEM - General Chief Complaint: Chest Pain Stated Complaint: LEFT SIDE PAIN CHEST AND BACK Time Seen by Provider: 06/01/19 03:00 Source of Information: Reports: Patient History Limitations: Reports: No Limitations - History of Present Illness INITIAL COMMENTS - FREE TEXT/NARRATIVE: This is a 63-year-old female. Around noon yesterday she started having symptoms of heartburn. She does have a history of significant heartburn. She tried some Zantac tried some Pepto-Bismol and an overdose of her Protonix but it didn't seem to help. She says she's got a lot of burping and a lot of burning. In that sensation seems to go into her left chest at times. It does not go down her left arm or into her jaw she's had no diaphoresis and no significant shortness of breath. Due to the persistent heartburn-type symptoms she comes to the ER this morning because she cannot resolve it. She does have a history of a pacemaker placed about 4 years ago. She is also Non insulin- dependent diabetic. Chest Pain Score (Numeric/FACES): 4 - Related Data Allergies Allergy/AdvReac Type Severity Reaction Status Date / Time cefadroxil hydrate Allergy Hives Verified 06/01/19 02:42 [From Ultracef] hydrochlorothiazide Allergy Cannot Verified 06/01/19 02:42 Remember influenza virus vaccine, Allergy Cannot Verified 06/01/19 02:42 specific Remember nitrofurantoin Allergy Hives Verified 06/01/19 02:42 [From Macrobid] Penicillins Allergy Rash Verified 06/01/19 02:42 Home Meds: Home Meds Aspirin [Ecotrin] 81 mg PO DAILY 04/17/14 [History] Losartan [Cozaar] 50 mg PO DAILY 04/17/14 [History] Montelukast Sodium [Singulair] 10 mg PO DAILY 05/31/16 [History] Multivitamin [Multi-Vitamin Daily] 1 tab PO DAILY 05/31/16 [History] Pantoprazole Sodium [Protonix] 40 mg PO DAILY 05/31/16 [History] metFORMIN [Glucophage] 850 mg PO BID 05/31/16 [History] Albuterol [IJP: Ventolin HFA] 1 - 2 puff INH Q4H PRN 06/26/17 [History] Rosuvastatin Calcium 10 mg PO DAILY 06/26/17 [History] Budesonide/Formoterol Fumarate [Symbicort 80-4.5 MCG] 2 puff INH BID 06/01/19 [ History] Past Medical History HEENT History: Reports: Allergic Rhinitis, Impaired Vision Cardiovascular History: Reports: Arrhythmia, High Cholesterol, Hypertension, Pacemaker Other Cardiovascular History: bradycardia, palpitations, diastolic dysfunction, mitral valve regurgitation Respiratory History: Reports: Asthma, Sleep Apnea Gastrointestinal History: Reports: Colon Polyp, GERD, Other (See Below) Other Gastrointestinal History: schatzki's ring Genitourinary History: Reports: None, UTI, 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 History: Reports: None, Other (See Below) Musculoskeletal History: Reports: Fibromyalgia, Osteoarthritis, Other (See Below ) Other Musculoskeletal History: carpal tunnel syndrome, thoracid degenrative disc disease, polyradiculopathy, bialter chronic knee pain, trochanteric bursitis of bilateral hips, right [id number] impingments, right supraspinatus tendonitis, polyarthralgia, it band sydnrome Neurological History: Reports: Neuropathy, Peripheral, Other (See Below) Other Neuro History: nerve biopsy, hx guillion-barre in 2010, fuentes's palsy, neroma, leg paresthesia Psychiatric History: Reports: Other (See Below) Other Psychiatric History: chronic fatigue Endocrine/Metabolic History: Reports: Diabetes, Type II, Obesity/BMI 30+ Hematologic History: Reports: Other (See Below) Other Hematologic History: easily bleeds, hyponatremia Immunologic History: Reports: None Oncologic (Cancer) History: Reports: Lung, Other (See Below) Other Oncologic History: carcinoid tumor left lung removed Dermatologic History: Reports: None - Past Surgical History Head Surgeries/Procedures: Reports: None HEENT Surgical History: Reports: Naso-Sinus Surgery, Tonsillectomy, Other (See Below) Respiratory Surgical History: Reports: Other (See Below) Other Respiratory Surgeries/Procedures: bronchoscopy, throacotomy with wedge resection GI Surgical History: Reports: Cholecystectomy, Colonoscopy, EGD Female Surgical History: Reports: D&C, Hysterectomy, Tubal Ligation Endocrine Surgical History: Reports: None Neurological Surgical History: Reports: None Musculoskeletal Surgical History: Reports: Arthroscopic Knee Oncologic Surgical History: Reports: Lobectomy Dermatological Surgical History: Reports: None Social & Family History - Family History Family Medical History: Noncontributory - Tobacco Use Smoking Status *Q: Never Smoker - Caffeine Use Caffeine Use: Reports: None - Recreational Drug Use Recreational Drug Use: No - Living Situation & Occupation Living situation: Reports: , with Spouse Occupation: Employed ([employer]) ED ROS GENERAL - Review of Systems Review Of Systems: See Below Constitutional: Denies: Fever, Chills HEENT: Reports: No Symptoms Respiratory: Reports: No Symptoms Cardiovascular: Reports: Chest Pain Endocrine: Reports: No Symptoms GI/Abdominal: Reports: Abdominal Pain, Nausea. Denies: Constipation, Diarrhea, Vomiting : Reports: No Symptoms Musculoskeletal: Reports: Other (Bilateral knee pain) Skin: Reports: No Symptoms Neurological: Reports: No Symptoms Psychiatric: Reports: No Symptoms Hematologic/Lymphatic: Reports: No Symptoms ED EXAM, GI/ABD - Physical Exam Exam: See Below Exam Limited By: No Limitations General Appearance: Alert, WD/WN, No Apparent Distress Eyes: Bilateral: Normal Appearance Ears: Normal External Exam Nose: Normal Inspection Throat/Mouth: Normal Inspection, Normal Lips, Normal Voice, No Airway Compromise Head: Normocephalic Neck: Supple Respiratory/Chest: No Respiratory Distress, Lungs Clear, Normal Breath Sounds Cardiovascular: Regular Rate, Rhythm, No Murmur GI/Abdominal Exam: Soft, Other (Epigastric tenderness on palpation but no right upper quadrant tenderness or left upper quadrant tenderness and no lower abdominal tenderness, bowel sounds are positive but they are decreased) Back Exam: Full Range of Motion Extremities: Normal Inspection, Normal Range of Motion Neurological: Alert, Oriented Psychiatric: Normal Affect, Normal Mood Skin Exam: Warm, Dry EKG INTERPRETATION EKG Date: 06/01/19 Time: 02:45 EKG Interpretation Comments: EKG shows an atrial pacemaker but I do not see any acute ST or T-wave changes I do not see any acute ischemia noted. Course - Vital Signs Last Recorded V/S: Last Vital Signs Temp 97.5 F 06/01/19 02:42 Pulse 60 06/01/19 02:42 Resp 16 06/01/19 02:42 BP 187/92 H 06/01/19 02:42 Pulse Ox 98 06/01/19 02:42 - Orders/Labs/Meds Orders: Active Orders 24 hr Category Date Time Status EKG Documentation Completion [RC] ASDIRECTED Care 06/01/19 02:48 Active EKG 12 Lead [EK] Stat Ther 06/01/19 02:48 Ordered Meds: Medications Discontinued Medications Generic Name Dose Route Start Last Admin Trade Name Perri PRN Reason Stop Dose Admin Al Hydroxide/Mg Hydroxide 30 0 ml 06/01/19 03:16 06/01/19 03:29 ml/ Lidocaine HCl 15 ml PO 06/01/19 03:17 45 ml ONETIME ONE Administration - Re-Assessments/Exams Free Text/Narrative Re-Assessment/Exam: 06/01/19 04:05 The GI cocktail eased her discomfort considerably and she feels like she is doing fine at this point. She doesn't want any further workup with blood work she is pleased with how the GI cocktail worked and all that pressure and sensation in her chest has resolved. She wants to go home. I explained that if this comes back with a vengeance then she needs to come back here for further evaluation and possible blood work. She states she understands. Departure - Departure Time of Disposition: 04:06 Disposition: Home, Self-Care 01 Condition: Good Clinical Impression: Gastro-esophageal reflux Qualifiers: Esophagitis presence: without esophagitis Qualified Code(s): K21.9 - Gastro- esophageal reflux disease without esophagitis - Discharge Information *PRESCRIPTION DRUG MONITORING PROGRAM REVIEWED*: Not Applicable *COPY OF PRESCRIPTION DRUG MONITORING REPORT IN PATIENT NIDA: Not Applicable Instructions: Food Choices for Gastroesophageal Reflux Disease, Adult Referrals: Samia Andrea MD [Primary Care Provider] - Forms: ED Department Discharge Additional Instructions: Sleep at a slight elevated slant so that the fluid in your stomach will not reflux into the esophagus, continue with Protonix or Zantac as needed, if this seems to start coming back take the additional GI cocktail, if it really worsens return to the ER for additional workup, follow up if primary care provider this week for recheck or return to the ER if needed. - My Orders Last 24 Hours: My Active Orders 06/01/19 02:48 EKG Documentation Completion [RC] ASDIRECTED EKG 12 Lead [EK] Stat - Assessment/Plan Last 24 Hours: My Active Orders 06/01/19 02:48 EKG Documentation Completion [RC] ASDIRECTED EKG 12 Lead [EK] Stat
== END 2019-06-01 04:15 | disposition home or self-care (01) ==
LOC: JD.ED 02:36
DX: K21.9 Gastro-esophageal reflux disease without esophagitis (principal); E11.42 Type 2 diabetes mellitus with diabetic polyneuropathy; E78.00 Pure hypercholesterolemia, unspecified; I10 Essential (primary) hypertension; E66.9 Obesity, unspecified; J45.909 Unspecified asthma, uncomplicated; Z88.1 Allergy status to other antibiotic agents; Z88.8 Allergy status to other drugs, medicaments and biological substances; Z88.7 Allergy status to serum and vaccine; Z88.0 Allergy status to penicillin; Z95.0 Presence of cardiac pacemaker; Z79.82 Long term (current) use of aspirin; Z79.899 Other long term (current) drug therapy; Z79.51 Long term (current) use of inhaled steroids; Z79.84 Long term (current) use of oral hypoglycemic drugs; Z68.41 Body mass index [BMI] 40.0-44.9, adult
CPT/HCPCS: 93005; 99284; A9270; 93010; 99283

== ENCOUNTER 2019-11-17 09:45 | Inpatient (IN) | payer BC ==
[~2019-11-17 09:45] MED LIST changes: +Albuterol 0.083% 2.5 MG/3 ML Neb Soln NEB SCH; +Lidocaine 1%/Sod Bicarbonate in NS 8.4% 1 ML Syringe IDERM PRN; -Lidocaine 1%/Sod Bicarbonate in NS 8.4% 1 ML Syringe IV PRN; +Scopolamine 1.5 MG Transdermal Patch TOP SCH
--- NOTE | 2019-11-18 12:20 | PCM.PREANE ---
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), Wheezing, Cough (due to asthma/chronic in nature) Cardiovascular: No Symptoms (Pacemaker(2014), History of Heart Catheterization in 2007-normal, History of diastolic dysfunction, History of first degree AV block, HTN, Elevated cholesterol) Gastrointestinal: No Symptoms (GERD-controlled), Difficulty Swallowing (History of schatzki's ring-asymptomatic) Neurological: No Symptoms (Man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 history of, laminectomy L4-L5, motion sickness, and vertigo, no current back pain noted.), Numbness (History of periphral neuropathies, fibromyalgia, chronic pain:), Tingling (bilateral lower legs since back surgery: none present this am) Other: Reports: None, Easy Bruising, Diabetes (AM blood [id number] @ 0625), Sinus Problem (post nasal drip noted with am cough induced.), Neck Pain (C5-6 fusion noted, no pain noted.) - Physical Assessment NPO Status Date: 11/18/19 NPO Status Time: 21:30 Vital Signs: HR:75 BP:156/86 Resp:16 Temp:97 Sat:94% Height: 1.63 m Weight: 110 kg ASA Class: 3 Mental Status: Alert & Oriented x3 Airway Class: Mallampati = 2 Dentition: Reports: Normal Dentition, Caries Thyro-Mental Finger Breadths: 3 Mouth Opening Finger Breadths: 3 ROM/Head Extension: Full Lungs: Clear to Auscultation, Normal Respiratory Effort Cardiovascular: Regular Rate, Regular Rhythm, No Murmurs - Lab Values: Laboratory Last Values MRSA (PCR) Negative 11/05/19 15:07 All labs reviewed and noted and within acceptable ranges to proceed with scheduled procedure. - Imaging/EKG Impressions: 06/2019 Stress Test: Indeterminate Lexiscan stress test without conclusive evidence for ischemia/Resting systolic HTN and Lexiscan sysolic HTN/No definite reversible type change seen, EF= 50%. EKG: Atrial paced complexes with prolonged MARIANA, rate= 65 CXR: negative Echocardiogram: March 2017 EF= 60-65%, Grade I Diastolic Dysfunction, no significant valve dysfunction - Allergies Allergies/Adverse Reactions: Allergies Allergy/AdvReac Type Severity Reaction Status Date / Time cefadroxil hydrate Allergy Hives Verified 11/14/19 12:46 [From Ultracef] hydrochlorothiazide Allergy Cannot Verified 11/14/19 12:46 Remember influenza virus vaccine, Allergy Cannot Verified 11/14/19 12:46 specific Remember nitrofurantoin Allergy Hives Verified 11/14/19 12:46 [From Macrobid] Penicillins Allergy Rash Verified 11/14/19 12:46 - Anesthesia Plan Pre-Op Medication Ordered: Beta Marito Beta Marito: Metoprolol Med Last Dose Date: 11/19/19 Med Last Dose Time: 05:30 - Acknowledgements Anesthesia Type Planned: Spinal (With right adductor canal block under ultra- sound guidance for post operative pain control) Pt an Appropriate Candidate for the Planned Anesthesia: Yes Alternatives and Risks of Anesthesia Discussed w Pt/Guardian: Yes Pt/Guardian Understands and Agrees with Anesthesia Plan: Yes PreAnesthesia Questionnaire HEENT History: Reports: Allergic Rhinitis, Impaired Vision Cardiovascular History: Reports: Arrhythmia, High Cholesterol, Hypertension, Pacemaker Other Cardiovascular History: bradycardia, palpitations, diastolic dysfunction, mitral valve regurgitation Respiratory History: Reports: Asthma, Sleep Apnea, Other (See Below) Other Respiratory History: lung cancer/tumor Gastrointestinal History: Reports: Colon Polyp, GERD, Other (See Below) Other Gastrointestinal History: schatzki's ring Genitourinary History: Reports: UTI, Recurrent PRINT BUYER History: Reports: None Musculoskeletal History: Reports: Fibromyalgia, Osteoarthritis, Other (See Below ) Other Musculoskeletal History: carpal tunnel syndrome, thoracid degenrative disc disease, polyradiculopathy, bialter chronic knee pain, trochanteric bursitis of bilateral hips, right [id number] impingments, right supraspinatus tendonitis, polyarthralgia, it band sydnrome Neurological History: Reports: Neuropathy, Peripheral, Other (See Below) Other Neuro History: nerve biopsy, hx guillion-barre in 2010, man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, neroma, leg paresthesia Psychiatric History: Reports: None, Other (See Below) Other Psychiatric History: chronic fatigue Endocrine/Metabolic History: Reports: Diabetes, Type II, Obesity/BMI 30+ Hematologic History: Reports: Other (See Below) Other Hematologic History: easily bleeds, hyponatremia Immunologic History: Reports: None Oncologic (Cancer) History: Reports: None, Lung, Other (See Below) Other Oncologic History: carcinoid tumor left lung removed Dermatologic History: Reports: None - Past Surgical History Head Surgeries/Procedures: Reports: None HEENT Surgical History: Reports: Naso-Sinus Surgery, Tonsillectomy, Other (See Below) Cardiovascular Surgical History: Reports: Pacer Respiratory Surgical History: Reports: Thoracotomy, Other (See Below) Other Respiratory Surgeries/Procedures: bronchoscopy, throacotomy with wedge resection GI Surgical History: Reports: Cholecystectomy, Colonoscopy, EGD Female Surgical History: Reports: D&C, Hysterectomy, Tubal Ligation Male Surgical History: Reports: None Endocrine Surgical History: Reports: None Neurological Surgical History: Reports: C-Spine, Laminectomy Musculoskeletal Surgical History: Reports: Arthroscopic Knee Other Musculoskeletal Surgeries/Procedures:: C5-C6 discectomy and fusion , right foot spur removal Oncologic Surgical History: Reports: Lobectomy Dermatological Surgical History: Reports: None - SUBSTANCE USE Smoking Status *Q: Never Smoker Second Hand Smoke Exposure: No Recreational Drug Use History: No - HOME MEDS Home Medications: Home Meds Aspirin [Ecotrin] 81 mg PO DAILY 04/17/14 [History] Losartan [Cozaar] 50 mg PO DAILY 04/17/14 [History] Montelukast Sodium [Singulair] 10 mg PO BEDTIME 05/31/16 [History] Multivitamin [Multi-Vitamin Daily] 1 tab PO DAILY 05/31/16 [History] Pantoprazole Sodium [Protonix] 40 mg PO DAILY 05/31/16 [History] metFORMIN [Glucophage] 850 mg PO BID 05/31/16 [History] Albuterol [IJP: Ventolin HFA] 1 - 2 puff INH TID PRN 06/26/17 [History] Budesonide/Formoterol Fumarate [Symbicort 80-4.5 MCG] 2 puff INH BID 06/01/19 [ History] Cholecalciferol (Vitamin D3) [Vitamin D3] 5,000 unit PO DAILY 11/14/19 [History] Codeine/Promethazine [Phenergan with Codeine] 5 ml PO Q8H PRN 11/14/19 [History] Metoprolol Succinate [Toprol XL] 25 mg PO BID 11/14/19 [History] Nitroglycerin 0.4 mg SL ASDIRECTED PRN 11/14/19 [History] Rosuvastatin [Crestor] 5 mg PO DAILY 11/14/19 [History] guaiFENesin [Mucinex] 1,200 mg PO BID PRN 11/14/19 [History] - CURRENT (IN HOUSE) MEDS Current Meds: Current Medications Albuterol (Proventil Neb Soln) 2.5 mg NEB ONETIME ONE Stop: 11/19/19 00:02 Lactated Ringer's (Ringers, Lactated) 1,000 mls @ 125 mls/hr IV ASDIRECTED SELENE Stop: 11/19/19 23:00 Lidocaine/Sodium Bicarbonate (Buffered Lidocaine 1% In Ns 8.4%) 0.25 ml IDERM ONETIME PRN PRN Reason: Prior to IV Start Stop: 11/19/19 18:00 Scopolamine (Transderm-Scop) 1.5 mg TOP ONETIME ONE Stop: 11/19/19 00:02 Sodium Chloride (Saline Flush) 10 ml FLUSH ASDIRECTED PRN PRN Reason: Keep Vein Open Stop: 11/19/19 18:00 Discontinued Medications Albuterol (Proventil Neb Soln) 2.5 mg NEB ONETIME SELENE Stop: 11/17/19 18:00 Lactated Ringer's (Ringers, Lactated) 1,000 mls @ 125 mls/hr IV ASDIRECTED SELENE Stop: 11/17/19 23:00 Lidocaine/Sodium Bicarbonate (Buffered Lidocaine 1% In Ns 8.4%) 0.25 ml IDERM ONETIME PRN PRN Reason: Prior to IV Start Stop: 11/17/19 18:00 Scopolamine (Transderm-Scop) 1.5 mg TOP ONETIME SELENE Stop: 11/17/19 18:00 Sodium Chloride (Saline Flush) 10 ml FLUSH ASDIRECTED PRN PRN Reason: Keep Vein Open Stop: 11/17/19 18:00
[2019-11-19] MEDS ORDERED: Lactated Ringers 1,000 ML IV SCH (00:01)
[2019-11-19] MEDS ORDERED: Scopolamine 1.5 MG Transdermal Patch TOP ONE ×2 (00:01→07:00)
[2019-11-19] MEDS ORDERED: Lidocaine 1%/Sod Bicarbonate in NS 8.4% 1 ML Syringe IDERM PRN (00:01)
[2019-11-19] MEDS ORDERED: Albuterol 0.083% 2.5 MG/3 ML Neb Soln NEB ONE (00:01)
[2019-11-19] MEDS ORDERED: Sodium Chloride 0.9% 10 ML Syringe FLUSH PRN (00:01)
[2019-11-19] MEDS ORDERED: EPINEPHrine 1 MG/ML SDV ONE (05:53)
[2019-11-19] MEDS ORDERED: Ropivacaine 0.5% 5 MG/ML 30 ML SDV ONE (05:53)
[2019-11-19] MEDS ORDERED: ceFAZolin 1 GM Vial ONE (06:09)
[2019-11-19] MEDS ORDERED: Propofol 200 MG/20 ML SDV ONE ×2 (06:09→08:06)
[2019-11-19] MEDS ORDERED: diphenhydrAMINE 50 MG/ML SDV ONE (06:09)
[2019-11-19] MEDS ORDERED: Lactated Ringers 2,000 ML ONE (06:09)
[2019-11-19] MEDS ORDERED: Lidocaine 1% 6 ML ONE (06:09)
[2019-11-19] MEDS ORDERED: Ondansetron 4 MG/2 ML SDV ONE (06:09)
[2019-11-19] MEDS ORDERED: Midazolam 1 MG/ML 2 ML SDV ONE (06:09)
[2019-11-19] MEDS ORDERED: Ketorolac 30 MG/ML SDV ONE (06:09)
[2019-11-19] MEDS ORDERED: fentaNYL 100 MCG/2 ML SDV ONE (06:09)
[2019-11-19] MEDS ORDERED: Ketamine 500 mg/10 ML MDV ONE (06:09)
[2019-11-19] MEDS ORDERED: Clindamycin Phosphate 900 MG in Sodium Chloride 0.9% 100 ML IV SCH (06:19)
[2019-11-19] MEDS ORDERED: Clindamycin Phosphate in D5W 900 MG in Premix Bag 1 BAG IV ONE ×2 (06:30)
[2019-11-19] MEDS ORDERED: Cyclobenzaprine 10 MG Tab PO PRN (06:33)
[2019-11-19] MEDS ORDERED: Ketorolac 15 MG/ML SDV IVPUSH PRN (06:33)
[2019-11-19] MEDS ORDERED: Sennosides 8.6 MG Tab PO PRN (06:34)
[2019-11-19] MEDS ORDERED: Naloxone 0.4 MG/ML SDV IVPUSH PRN (06:34)
[2019-11-19] MEDS ORDERED: Magnesium Hydroxide 400 MG/5 ML Susp 30 ML Cup PO PRN (06:34)
[2019-11-19] MEDS ORDERED: Bisacodyl 5 MG Tab PO PRN (06:34)
[2019-11-19] MEDS ORDERED: Morphine 2 MG/ML SYRINGE IVPUSH PRN (06:34)
[2019-11-19] MEDS ORDERED: Ondansetron 4 MG/2 ML SDV IVPUSH PRN ×2 (06:34→07:28)
[2019-11-19] MEDS ORDERED: Famotidine 20 MG Tab PO SCH ×2 (07:00→21:00)
[2019-11-19] MEDS ORDERED: Clindamycin Phosphate 900 MG/6 ML SDV ONE (07:01)
[2019-11-19] MEDS ORDERED: Sodium Chloride 0.9% 100 ML ONE (07:01)
--- NOTE | 2019-11-19 07:15 | PCM.CONS ---
H&P History of Present Illness - General Date of Service: 11/19/19 Admit Problem/Dx: Admission Diagnosis/Problem Admission Diagnosis/Problem Osteoarthritis of knee Source of Information: Patient, Old Records, Provider, RN, RN Notes Reviewed History Limitations: Reports: No Limitations - History of Present Illness Initial Comments - Free Text/Narative: Caryn Aguirre is a 64 yo female patient of Dr. Kern who is post-operative day 0 of left TKA. Hospital medicine was consulted for post-operative medical care of the following listed medical conditions. At this time she is resting comfortably in bed. Pain is controlled. She denies any chest pain, shortness of breath, palpitations, nausea, or vomiting. 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 She was never a smoker. She is a full code. Her primary care provider is Dr. Andrea. - Related Data Allergies/Adverse Reactions: Allergies Allergy/AdvReac Type Severity Reaction Status Date / Time cefadroxil hydrate Allergy Hives Verified 11/14/19 12:46 [From Ultracef] hydrochlorothiazide Allergy Cannot Verified 11/14/19 12:46 Remember influenza virus vaccine, Allergy Cannot Verified 11/14/19 12:46 specific Remember nitrofurantoin Allergy Hives Verified 11/14/19 12:46 [From Macrobid] Penicillins Allergy Rash Verified 11/14/19 12:46 acetaminophen [From Percocet] AdvReac Disorientat Verified 11/19/19 10:51 ion oxycodone [From Percocet] AdvReac Disorientat Verified 11/19/19 10:51 ion Home Medications: Home Meds Aspirin [Ecotrin] 81 mg PO DAILY 04/17/14 [History] Losartan [Cozaar] 50 mg PO DAILY 04/17/14 [History] Montelukast Sodium [Singulair] 10 mg PO BEDTIME 05/31/16 [History] Multivitamin [Multi-Vitamin Daily] 1 tab PO DAILY 05/31/16 [History] Pantoprazole Sodium [Protonix] 40 mg PO DAILY 05/31/16 [History] metFORMIN [Glucophage] 850 mg PO BID 05/31/16 [History] Albuterol [IJP: Ventolin HFA] 1 - 2 puff INH TID PRN 06/26/17 [History] Budesonide/Formoterol Fumarate [Symbicort 80-4.5 MCG] 2 puff INH BID 06/01/19 [ History] Cholecalciferol (Vitamin D3) [Vitamin D3] 5,000 unit PO DAILY 11/14/19 [History] Codeine/Promethazine [Phenergan with Codeine] 5 ml PO Q8H PRN 11/14/19 [History] Metoprolol Succinate [Toprol XL] 25 mg PO BID 11/14/19 [History] Nitroglycerin 0.4 mg SL ASDIRECTED PRN 11/14/19 [History] Rosuvastatin [Crestor] 5 mg PO DAILY 11/14/19 [History] guaiFENesin [Mucinex] 1,200 mg PO BID PRN 11/14/19 [History] Past Medical History HEENT History: Reports: Allergic Rhinitis, Impaired Vision Cardiovascular History: Reports: Arrhythmia, High Cholesterol, Hypertension, Pacemaker Other Cardiovascular History: bradycardia, palpitations, diastolic dysfunction, mitral valve regurgitation Respiratory History: Reports: Asthma, Sleep Apnea, Other (See Below) Other Respiratory History: lung cancer/tumor Gastrointestinal History: Reports: Colon Polyp, GERD, Other (See Below) Other Gastrointestinal History: schatzki's ring Genitourinary History: Reports: UTI, Recurrent [employer] History: Reports: None Musculoskeletal History: Reports: Fibromyalgia, Osteoarthritis, Other (See Below ) Other Musculoskeletal History: carpal tunnel syndrome, thoracid degenrative disc disease, polyradiculopathy, bialter chronic knee pain, trochanteric bursitis of bilateral hips, right [id number] impingments, right supraspinatus tendonitis, polyarthralgia, it band sydnrome Neurological History: Reports: Neuropathy, Peripheral, Other (See Below) Other Neuro History: nerve biopsy, hx guillion-barre in 2010, [place]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, neroma, leg paresthesia Psychiatric History: Reports: None, Other (See Below) Other Psychiatric History: chronic fatigue Endocrine/Metabolic History: Reports: Diabetes, Type II, Obesity/BMI 30+ Hematologic History: Reports: Other (See Below) Other Hematologic History: easily bleeds, hyponatremia Immunologic History: Reports: None Oncologic (Cancer) History: Reports: None, Lung, Other (See Below) Other Oncologic History: carcinoid tumor left lung removed Dermatologic History: Reports: None - Past Surgical History Head Surgeries/Procedures: Reports: None HEENT Surgical History: Reports: Naso-Sinus Surgery, Tonsillectomy, Other (See Below) Cardiovascular Surgical History: Reports: Pacer Respiratory Surgical History: Reports: Thoracotomy, Other (See Below) Other Respiratory Surgeries/Procedures: bronchoscopy, throacotomy with wedge resection GI Surgical History: Reports: Cholecystectomy, Colonoscopy, EGD Female Surgical History: Reports: D&C, Hysterectomy, Tubal Ligation Male Surgical History: Reports: None Endocrine Surgical History: Reports: None Neurological Surgical History: Reports: C-Spine, Laminectomy Musculoskeletal Surgical History: Reports: Arthroscopic Knee Other Musculoskeletal Surgeries/Procedures:: C5-C6 discectomy and fusion , right foot spur removal Oncologic Surgical History: Reports: Lobectomy Dermatological Surgical History: Reports: None Social & Family History - Family History Family Medical History: Noncontributory - Tobacco Use Smoking Status *Q: Never Smoker Second Hand Smoke Exposure: No - Caffeine Use Caffeine Use: Reports: Coffee, Soda, Tea - Recreational Drug Use Recreational Drug Use: No - Living Situation & Occupation Living situation: Reports: , with Spouse Occupation: Employed ([employer]) H&P Review of Systems - Review of Systems: Review Of Systems: See Below General: Reports: No Symptoms. Denies: Fever, Chills HEENT: Reports: No Symptoms. Denies: Headaches, Sore Throat Pulmonary: Reports: No Symptoms. Denies: Shortness of Breath, Wheezing, Cough, Sputum Cardiovascular: Reports: No Symptoms. Denies: Chest Pain, Palpitations, Dyspnea on Exertion Gastrointestinal: Reports: No Symptoms. Denies: Abdominal Pain, Constipation, Diarrhea, Nausea, Vomiting Genitourinary: Reports: No Symptoms. Denies: Pain Musculoskeletal: Reports: Leg Pain Skin: Reports: No Symptoms. Denies: Cyanosis Psychiatric: Reports: No Symptoms. Denies: Confusion Neurological: Reports: Difficulty Walking, Gait Disturbance Hematologic/Lymphatic: Reports: No Symptoms Immunologic: Reports: No Symptoms Exam - Exam Exam: See Below - Vital Signs Vital Signs: Last Vital Signs Temp 97.0 F 11/19/19 06:10 Pulse 75 11/19/19 06:10 Resp 16 11/19/19 06:10 BP 156/86 H 11/19/19 06:10 Pulse Ox 94 L 11/19/19 06:10 Weight: 242 lb 8.136 oz - Exam Quality Assessment: DVT Prophylaxis General: Alert, Oriented, Cooperative. No: Mild Distress HEENT: Conjunctiva Clear, EACs Clear, Mucosa Moist & [place], Nares Patent, Posterior Pharynx Clear, PERRLA Neck: Supple, Trachea Midline Lungs: Clear to Auscultation, Normal Respiratory Effort Cardiovascular: Regular Rate, Regular Rhythm GI/Abdominal Exam: Normal Bowel Sounds, Soft, Non-Tender, No Distention (Female) Exam: Deferred Rectal (Female) Exam: Deferred Extremities: Normal Capillary Refill, Leg Pain, Limited Range of Motion, Other ( Bandage on left leg. Bandage is dry and intact. Cooling pack in place. ) Peripheral Pulses: 2+: Radial (L), Radial (R), Dorsalis Pedis (L), Dorsalis Pedis (R) Skin: Warm, Dry, Intact Neurological: Cranial Nerves Intact (grossly ) Neuro Extensive - Mental Status: Alert, Oriented x3, Normal Mood/Affect - Patient Data Lab Results Last 24 hrs: Laboratory Results - last 24 hr 11/19/19 Range/Units 06:24 POC Glucose 121 H (80-115) mg/dL Sepsis Event Note - Evaluation Sepsis Screening Result: No Definite Risk - Focused Exam Vital Signs: Vital Signs Temp Pulse Resp BP Pulse Ox 11/19/19 06:10 97.0 F 75 16 156/86 H 94 L Date Exam was Performed: 11/19/19 Time Exam was Performed: 12:46 Consult PN Assessment/Plan POD#: 0 Procedures: Procedures ASSAY OF CK (CPK) (10/05/14) ASSAY OF LACTIC ACID (05/31/16) ASSAY OF LIPASE (07/19/15) ASSAY OF NATRIURETIC PEPTIDE (06/12/17) ASSAY OF TROPONIN QUANT (06/12/17) BLOOD CULTURE FOR BACTERIA (05/31/16) C-REACTIVE PROTEIN (11/25/16) CARDIOVASCULAR STRESS TEST (07/01/19) CHEST X-RAY 1 VIEW FRONTAL (01/08/17) CHEST X-RAY 2VW FRONTAL&LATL (06/12/17) COMPLETE CBC W/AUTO DIFF WBC (06/12/17) COMPREHEN METABOLIC PANEL (06/12/17) CREATINE MB FRACTION (10/05/14) CT MAXILLOFACIAL W/O DYE (03/24/14) DIAGNOSTIC COLONOSCOPY (06/27/17) EGD BIOPSY SINGLE/MULTIPLE (06/27/17) ELECTROCARDIOGRAM TRACING (06/01/19) EMERGENCY DEPT VISIT (06/01/19) EMERGENCY DEPT VISIT (06/12/17) EMERGENCY DEPT VISIT (11/25/16) EMERGENCY DEPT VISIT (05/31/16) EMERGENCY DEPT VISIT (07/19/15) EMERGENCY DEPT VISIT (10/05/14) EXPLORATION MAXILLARY SINUS (04/17/14) FIBRIN DEGRADATION QUANT (06/12/17) GLUCOSE BLOOD TEST (06/27/17) HT MUSCLE IMAGE SPECT MULT (07/01/19) HYDRATE IV INFUSION ADD-ON (11/25/16) HYDRATION IV INFUSION INIT (07/19/15) INFLUENZA ASSAY W/OPTIC (07/19/15) METABOLIC PANEL TOTAL CA (04/17/14) MICROBE SUSCEPTIBLE BIANCA (09/22/16) PROTHROMBIN TIME (06/12/17) ROUTINE VENIPUNCTURE (06/12/17) THER/PROPH/DIAG INJ IV PUSH (11/25/16) THER/PROPH/DIAG INJ SC/IM (11/25/16) THER/PROPH/DIAG IV INF INIT (05/31/16) THROMBOPLASTIN TIME PARTIAL (06/12/17) TX/PRO/DX INJ NEW DRUG ADDON (11/25/16) URINALYSIS AUTO W/SCOPE (06/12/17) URINE BACTERIA CULTURE (09/22/16) URINE CULTURE/COLONY COUNT (09/22/16) X-RAY EXAM OF ABDOMEN (11/25/16) (1) S/P total knee arthroplasty SNOMED Code(s): 4449934418330, 681098910, 7682780450755 Code(s): Z96.659 - PRESENCE OF UNSPECIFIED ARTIFICIAL KNEE JOINT Priority: High Current Visit: Yes Qualifiers: Laterality: left Qualified Code(s): Z96.652 - Presence of left artificial knee joint (2) Osteoarthritis SNOMED Code(s): 935108605 Code(s): M19.90 - UNSPECIFIED OSTEOARTHRITIS, UNSPECIFIED SITE Priority: High Current Visit: Yes Qualifiers: Osteoarthritis location: knee Osteoarthritis type: primary Laterality: bilateral Qualified Code(s): M17.0 - Bilateral primary osteoarthritis of knee (3) Asthma SNOMED Code(s): 666848692 Code(s): J45.909 - UNSPECIFIED ASTHMA, UNCOMPLICATED Priority: Medium Current Visit: No Qualifiers: Asthma severity: unspecified severity Asthma persistence: unspecified Asthma complication type: unspecified Qualified Code(s): J45.909 - Unspecified asthma, uncomplicated (4) Type II diabetes mellitus SNOMED Code(s): 37364844 Code(s): E11.9 - TYPE 2 DIABETES MELLITUS WITHOUT COMPLICATIONS Priority: Medium Current Visit: No Qualifiers: Diabetes mellitus long term acute care registered nurse insulin use: unspecified correction insulin use status Diabetes mellitus complication status: with other specified complication Qualified Code(s): E11.69 - Type 2 diabetes mellitus with other specified complication (5) HTN (hypertension) SNOMED Code(s): 96104915 Code(s): I10 - ESSENTIAL (PRIMARY) HYPERTENSION Priority: Medium Current Visit: No Qualifiers: Hypertension type: unspecified Qualified Code(s): I10 - Essential (primary ) hypertension (6) HLD (hyperlipidemia) SNOMED Code(s): 22580791 Code(s): E78.5 - HYPERLIPIDEMIA, UNSPECIFIED Priority: Low Current Visit : No Qualifiers: Hyperlipidemia type: unspecified Qualified Code(s): E78.5 - Hyperlipidemia , unspecified (7) History of lung cancer SNOMED Code(s): 319972178, 007138659 Code(s): Z85.118 - PERSONAL HISTORY OF MALIGNANT NEOPLASM OF BRONCHUS AND LUNG Priority: Low Current Visit: No (8) BAYRON (obstructive sleep apnea) SNOMED Code(s): 69765833 Code(s): G47.33 - OBSTRUCTIVE SLEEP APNEA (ADULT) (PEDIATRIC) Priority: Medium Current Visit: No (9) Palpitations SNOMED Code(s): 41750584 Code(s): R00.2 - PALPITATIONS Priority: Low Current Visit: No (10) Diastolic dysfunction SNOMED Code(s): 0374040 Code(s): I51.89 - OTHER ILL-DEFINED HEART DISEASES Priority: Low Current Visit: No (11) History of 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 SNOMED Code(s): 393515938 Code(s): Z86.69 - PERSONAL HISTORY OF DIS OF THE NERVOUS SYS AND SENSE ORGANS Priority: Low Current Visit: No (12) Guillain-[place] SNOMED Code(s): 49513562 Code(s): G61.0 - GUILLAIN-BARRE SYNDROME Priority: Low Current Visit: No (13) Peripheral neuropathy SNOMED Code(s): 655974732 Code(s): G62.9 - POLYNEUROPATHY, UNSPECIFIED Priority: Low Current Visit : No Qualifiers: Peripheral neuropathy type: polyneuropathy, unspecified Qualified Code(s): G62.9 - Polyneuropathy, unspecified (14) Schatzki's ring SNOMED Code(s): 018061156 Code(s): K22.2 - ESOPHAGEAL OBSTRUCTION Priority: Low Current Visit: No (15) Bilateral leg paresthesia SNOMED Code(s): 074957017 Code(s): R20.2 - PARESTHESIA OF SKIN Priority: Low Current Visit: No (16) Fibromyalgia SNOMED Code(s): 520724985 Code(s): M79.7 - FIBROMYALGIA Priority: Low Current Visit: No (17) Morbid obesity SNOMED Code(s): 713029832 Code(s): E66.01 - MORBID (SEVERE) OBESITY DUE TO EXCESS CALORIES Priority: Low Current Visit: No (18) High degree atrioventricular block SNOMED Code(s): 53911477 Code(s): I44.39 - OTHER ATRIOVENTRICULAR BLOCK Priority: Medium Current Visit: No (19) Chronic hyponatremia SNOMED Code(s): 58779781 Code(s): E87.1 - HYPO-OSMOLALITY AND HYPONATREMIA Priority: Low Current Visit: No (20) Pacemaker SNOMED Code(s): 868400711 Code(s): Z95.0 - PRESENCE OF CARDIAC PACEMAKER Priority: Low Current Visit: No (21) Recurrent UTI SNOMED Code(s): 850458406 Code(s): N39.0 - URINARY TRACT INFECTION, SITE NOT SPECIFIED Priority: Low Current Visit: No (22) Thoracic degenerative disc disease Priority: Low Current Visit: No (23) Gastro-esophageal reflux SNOMED Code(s): 319428948 Code(s): K21.9 - GASTRO-ESOPHAGEAL REFLUX DISEASE WITHOUT ESOPHAGITIS Priority: Low Current Visit: No Qualifiers: Esophagitis presence: without esophagitis Qualified Code(s): K21.9 - Gastro -esophageal reflux disease without esophagitis Problem List Initiated/Reviewed/Updated: Yes Plan: I/P: Acute: S/P left total knee arthroplasty - post-operative day 0 -DVT prophylaxis and pain management per primary care team -PT/OT -IS/RT -Monitor oxygen saturation -Titrate oxygen as needed -Home medications reviewed -Vital signs stable -Monitor labs -Pre-operative Hgb was 12.8 -Pre-operative GFR was 58 -Pre-operative creatinine was 0.97 -Pre-operative BUN was 9 -Pre-operative A1C on 10/21/19 was 6.1% -Pre-operative 12-lead showed first degree HB Osteoarthritis of bilateral knee -Pain management per primary care team Chronic: Asthma Type II DM HTN HLD Carcinoid of left lung S/P surgery BAYRON Palpitations Diastolic dysfunction GERD [place] Palsy 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 Her PCP is Dr. Andrea Thank you for allowing us to participate in the care of this patient!! Requesting Provider: Dr. Kern Date Consult Requested: 11/19/19 Patient History Reviewed: Yes Admission H&P Reviewed: Yes Notified Requestor: Yes
[2019-11-19] MEDS ORDERED: fentaNYL 100 MCG/2 ML SDV IVPUSH PRN (07:28)
[2019-11-19] MEDS ORDERED: Albuterol 0.083% 2.5 MG/3 ML Neb Soln NEB PRN (07:28)
[2019-11-19] MEDS ORDERED: ePHEDrine 50 MG/ML SDV IVPUSH PRN (07:28)
[2019-11-19] MEDS ORDERED: Haloperidol Lactate 5 MG/ML SDV IVPUSH PRN (07:28)
[2019-11-19] MEDS ORDERED: Morphine 8 MG, EPINEPHrine 0.3 MG, Ketorolac 30 MG, Sodium Chloride 0.9% 7.9 ML ONE ×4 (07:30)
[2019-11-19] MEDS ORDERED: Phenylephrine 1 MG in Sodium Chloride 0.9% 10 ML IV PRN (07:30)
[2019-11-19] MEDS: Iodine/Sodium Iodide 2% Tincture 30 ML Bottle ONE ×2 (08:16→08:23)
[2019-11-19] MEDS: Clindamycin Phosphate 900 MG/6 ML SDV ONE ×2 (08:17→08:25)
[2019-11-19] MEDS: Bupivacaine 0.25% 10 ML SDV ONE ×4 (08:21→08:56)
[2019-11-19] MEDS: Morphine 8 MG, EPINEPHrine 0.3 MG, Ketorolac 30 MG, Sodium Chloride 0.9% 7.9 ML PRN ×8 (08:23→08:26)
[2019-11-19] MEDS: Vancomycin 1 GM SDV ONE ×2 (08:24→08:32)
[2019-11-19] MEDS: Triamcinolone Acetonide 40 MG/ML 1 ML SDV ONE ×2 (08:25→08:56)
[2019-11-19] MEDS ORDERED: ePHEDrine Sulfate/0.9% NaCl/Pf 25 MG/5 ML SYRINGE IV ONE (08:38)
--- NOTE | 2019-11-19 09:25 | PCM.POSTAN ---
POST ANESTHESIA ASSESSMENT - MENTAL STATUS Mental Status: Alert - VITAL SIGNS Vital Signs: Last Vital Signs Temp 36.6 C 11/19/19 09:08 Pulse 75 11/19/19 06:10 Resp 14 11/19/19 09:20 BP 150/71 H 11/19/19 09:08 Pulse Ox 92 L 11/19/19 09:20 - RESPIRATORY Respiratory Status: Respiratory Rate WNL, Airway Patent, O2 Saturation Stable - CARDIOVASCULAR CV Status: Pulse Rate WNL, Blood Pressure Stable - GASTROINTESTINAL GI Status: No Symptoms - POST OP HYDRATION Hydration Status: Adequate & Stable
--- NOTE | 2019-11-19 09:46 | PCM.SN ---
- Free Text/Narrative Note: Left selective femoral nerve block at the adductor canal for post-procedure pain control under US guidance requested by Dr. Kern. Time Out: 926 Start: 927 End: 934 Chart reviewed. Consent signed. Questions answered. Appropriate monitors applied. Time out performed. Left mid-shaft femur identified with ultrasound, scanning medially of femur, the femoral artery in the adductor canal visualized , and the femoral nerve located laterally to the artery. The skin was prepped lateral to the ultrasound probe with chlorahexadine times two. The 21ga 4 insulated block needle was inserted under direct ultrasound guidance into the adductor canal. 25mL of 0.5% ropivacaine with 1:200,000 epinephrine was injected circumferentially around the nerve with intermittent negative aspiration noted. Patient tolerated the procedure well. Sterile technique noted along with sterile gloves, mask, and sterile probe cover. See picture on progress note and vital signs on nurses notes. Block completed in PACU. Vee Sanchez CRNA
[2019-11-19] MEDS: Acetaminophen/HYDROcodone 325-5 MG Tab PO PRN ×3 (10:54→17:01)
[2019-11-19] MEDS ORDERED: guaiFENesin 600 MG Tab.ER PO PRN (11:27)
[2019-11-19] MEDS ORDERED: Nitroglycerin 0.4 MG Tab.SL SL PRN (11:27)
[2019-11-19] MEDS ORDERED: ALBUTEROL INH PRN (11:27)
--- NOTE | 2019-11-19 11:37 | CR ---
Left knee: AP and lateral views of the left knee were obtained. Comparison: Prior left knee radiographic study of 11/18/13. Knee prosthesis is seen. Components are aligned. Soft tissue air is noted from the surgical procedure. Underlying bony structures are intact. Impression: 1. Satisfactory postop radiographic appearance of recently placed left knee prosthesis. Diagnostic code #2 This report was dictated in MDT
[2019-11-19] MEDS: Clindamycin Phosphate in D5W 900 MG in Premix Bag 1 BAG IV SCH ×4 (12:18→18:35)
[2019-11-19] MEDS ORDERED: Losartan 25 MG Tab PO ONE (16:50)
[2019-11-19] MEDS ORDERED: Prochlorperazine 10 MG/2 ML SDV IVPUSH PRN (17:40)
[2019-11-19] MEDS ORDERED: Non-Formulary Medication 1 Each (Budesonide/Formoterol Fumarate 2 PUFF) INH SCH (21:00)
[2019-11-19] MEDS ORDERED: Montelukast 10 MG Tab PO SCH (21:00)
[2019-11-19] MEDS: Metoprolol Succinate 25 MG Tab.ER PO SCH (21:26)
[2019-11-19] MEDS: Docusate Sodium 100 MG Cap PO SCH (21:27)
[2019-11-20] MEDS: Clindamycin Phosphate in D5W 900 MG in Premix Bag 1 BAG IV SCH ×2 (00:04)
[2019-11-20] MEDS: Acetaminophen/HYDROcodone 325-5 MG Tab PO PRN ×3 (00:11→09:19)
[2019-11-20 05:40] VITALS: PULSE 63
--- NOTE | 2019-11-20 07:22 | PCM.SURGPN ---
- General Info Date of Service: 11/20/19 POD#: 1 Functional Status: Reports: Pain Controlled, Tolerating Diet, Ambulating, Urinating, Incentive Spirometry, Other (Nursing states pt is doing very well. The pt feels prepared for d/c to home with her .) - Patient Data Vitals - Most Recent: Last Vital Signs Temp 97.7 F 11/20/19 04:16 Pulse 63 11/20/19 04:16 Resp 16 11/20/19 04:16 BP 124/75 11/20/19 04:16 Pulse Ox 93 L 11/20/19 04:16 Weight - Most Recent: 245 lb 6.4 oz I&O - Last 24 Hours: Intake & Output 11/19/19 11/20/19 11/20/19 22:59 06:59 14:59 Intake Total 1180 700 Output Total 100 1850 Balance 1080 -1150 Lab Results Last 24 Hrs: Laboratory Results - last 24 hr 11/19/19 11/19/19 11/19/19 Range/Units 09:32 12:09 16:54 WBC (3.98-10.04) K/mm3 RBC (3.98-5.22) M/mm3 Hgb (11.2-15.7) gm/dl Hct (34.1-44.9) % MCV (79.4-94.8) fl MCH (25.6-32.2) pg MCHC (32.2-35.5) g/dl RDW Std Deviation (36.4-46.3) fL Plt Count (182-369) K/mm3 MPV (9.4-12.3) fl Sodium (136-145) mEq/L Potassium (3.5-5.1) mEq/L Chloride (98-107) mEq/L Carbon Dioxide (21-32) mEq/L Anion Gap (5-15) BUN (7-18) mg/dL Creatinine (0.55-1.02) mg/dL Est Cr Clr Drug Dosing mL/min Estimated GFR (MDRD) (>60) mL/min BUN/Creatinine Ratio (14-18) Glucose (80-115) mg/dL POC Glucose 135 H 138 H 153 H (80-115) mg/dL Calcium (8.5-10.1) mg/dL Total Bilirubin (0.2-1.0) mg/dL AST (15-37) U/L ALT (14-59) U/L Alkaline Phosphatase (46-116) U/L Total Protein (6.4-8.2) g/dl Albumin (3.4-5.0) g/dl Globulin gm/dL Albumin/Globulin Ratio (1-2) 11/19/19 11/20/19 11/20/19 Range/Units 21:21 05:43 05:43 WBC 12.57 H (3.98-10.04) K/mm3 RBC 3.79 L (3.98-5.22) M/mm3 Hgb 10.9 L D (11.2-15.7) gm/dl Hct 34.1 (34.1-44.9) % MCV 90.0 (79.4-94.8) fl MCH 28.8 (25.6-32.2) pg MCHC 32.0 L (32.2-35.5) g/dl RDW Std Deviation 41.8 (36.4-46.3) fL Plt Count 183 D (182-369) K/mm3 MPV 10.1 (9.4-12.3) fl Sodium 138 (136-145) mEq/L Potassium 4.1 (3.5-5.1) mEq/L Chloride 102 (98-107) mEq/L Carbon Dioxide 26 (21-32) mEq/L Anion Gap 14.1 (5-15) BUN 15 (7-18) mg/dL Creatinine 0.9 (0.55-1.02) mg/dL Est Cr Clr Drug Dosing 54.53 mL/min Estimated GFR (MDRD) > 60 (>60) mL/min BUN/Creatinine Ratio 16.7 (14-18) Glucose 207 H (80-115) mg/dL POC Glucose 191 H (80-115) mg/dL Calcium 8.9 (8.5-10.1) mg/dL Total Bilirubin 0.5 (0.2-1.0) mg/dL AST 14 L (15-37) U/L ALT 21 (14-59) U/L Alkaline Phosphatase 64 (46-116) U/L Total Protein 6.2 L (6.4-8.2) g/dl Albumin 3.2 L (3.4-5.0) g/dl Globulin 3.0 gm/dL Albumin/Globulin Ratio 1.1 (1-2) 11/20/19 Range/Units 05:50 WBC (3.98-10.04) K/mm3 RBC (3.98-5.22) M/mm3 Hgb (11.2-15.7) gm/dl Hct (34.1-44.9) % MCV (79.4-94.8) fl MCH (25.6-32.2) pg MCHC (32.2-35.5) g/dl RDW Std Deviation (36.4-46.3) fL Plt Count (182-369) K/mm3 MPV (9.4-12.3) fl Sodium (136-145) mEq/L Potassium (3.5-5.1) mEq/L Chloride (98-107) mEq/L Carbon Dioxide (21-32) mEq/L Anion Gap (5-15) BUN (7-18) mg/dL Creatinine (0.55-1.02) mg/dL Est Cr Clr Drug Dosing mL/min Estimated GFR (MDRD) (>60) mL/min BUN/Creatinine Ratio (14-18) Glucose (80-115) mg/dL POC Glucose 178 H (80-115) mg/dL Calcium (8.5-10.1) mg/dL Total Bilirubin (0.2-1.0) mg/dL AST (15-37) U/L ALT (14-59) U/L Alkaline Phosphatase (46-116) U/L Total Protein (6.4-8.2) g/dl Albumin (3.4-5.0) g/dl Globulin gm/dL Albumin/Globulin Ratio (1-2) Med Orders - Current: Current Medications Hydrocodone Bitart/Acetaminophen ([place] 325-5 Mg) 1 - 2 tab PO Q4H PRN PRN Reason: Pain Last Admin: 11/20/19 04:29 Dose: 1 tab Aspirin (Ecotrin) 325 mg PO BID SELENE Bisacodyl (Dulcolax) 5 mg PO DAILY PRN PRN Reason: Constipation Cholecalciferol (Vitamin D3) 5,000 unit PO DAILY [facility] Cyclobenzaprine HCl (Flexeril) 10 mg PO TID PRN PRN Reason: Spasms Docusate Sodium (Colace) 100 mg PO BID SELENE Last Admin: 11/19/19 21:27 Dose: 100 mg Guaifenesin (Mucinex) 1,200 mg PO BID PRN PRN Reason: cold symptoms Ketorolac Tromethamine (Toradol) 15 mg IVPUSH Q6H PRN PRN Reason: Pain Losartan Potassium (Cozaar) 50 mg PO DAILY [facility] Magnesium Hydroxide (Milk Of Magnesia) 30 ml PO BID PRN PRN Reason: Constipation Metoprolol Succinate (Toprol Xl) 25 mg PO BID [facility] Last Admin: 11/19/19 21:26 Dose: 25 mg Miscellaneous Information (Remove Patch) 1 ea TRDERM Q24H [facility] Montelukast Sodium (Singulair) 10 mg PO BEDTIME [facility] Last Admin: 11/19/19 21:26 Dose: 10 mg Morphine Sulfate (Morphine) 2 mg IVPUSH Q2H PRN PRN Reason: Breakthrough Pain Multivitamins (Thera) 1 each PO DAILY [facility] Naloxone HCl (Narcan) 0.1 mg IVPUSH Q5M PRN PRN Reason: Oversedation Nitroglycerin (Nitrostat) 0.4 mg SL ASDIRECTED PRN PRN Reason: Chest Pain Non-Formulary Medication (Albuterol [Ijp: Ventolin Hfa]) 1 - 2 puff INH TID PRN PRN Reason: Shortness of Breath Non-Formulary Medication (Budesonide/Formoterol Fumarate) 2 puff INH BID [facility] Ondansetron HCl (Zofran) 4 mg IVPUSH Q6H PRN PRN Reason: Nausea/Vomiting Last Admin: 11/19/19 14:27 Dose: 4 mg Pantoprazole Sodium (Protonix) 40 mg PO DAILY [facility] Prochlorperazine Edisylate (Compazine) 10 mg IVPUSH Q6H PRN PRN Reason: Nausea/Vomiting Last Admin: 11/19/19 18:36 Dose: 10 mg Rosuvastatin Calcium (Crestor) 5 mg PO DAILY [facility] Senna (Senna) 8.6 mg PO BID PRN PRN Reason: Constipation Discontinued Medications Albuterol (Proventil Neb Soln) 2.5 mg NEB ONETIME SELENE Stop: 11/17/19 18:00 Albuterol (Proventil Neb Soln) 2.5 mg NEB ONETIME ONE Stop: 11/19/19 00:02 Last Admin: 11/19/19 20:38 Dose: Not Given Albuterol (Proventil Neb Soln) 2.5 mg NEB ONETIME PRN PRN Reason: bronchodilation Stop: 11/19/19 13:00 Bupivacaine HCl (Sensorcaine-Mpf 0.25%) Confirm Administered Dose 30 ml .ROUTE .STK-MED ONE Stop: 11/19/19 06:16 Last Admin: 11/19/19 08:27 Dose: 30 ml Bupivacaine HCl (Sensorcaine-Mpf 0.25%) Confirm Administered Dose 10 ml .ROUTE .STK-MED ONE Stop: 11/19/19 06:52 Last Admin: 11/19/19 08:56 Dose: 4 ml Cefazolin Sodium (Ancef) Confirm Administered Dose 2 gm .ROUTE .STK-MED ONE Stop: 11/19/19 06:10 Clindamycin Phosphate (Cleocin) Confirm Administered Dose 900 mg .ROUTE .STK- MED ONE Stop: 11/19/19 06:16 Last Admin: 11/19/19 08:25 Dose: 900 mg Clindamycin Phosphate (Cleocin) Confirm Administered Dose 900 mg .ROUTE .STK- MED ONE Stop: 11/19/19 07:02 Morphine Sulfate 8 mg/Epinephrine HCl 0.3 mg/Ketorolac Tromethamine 30 mg/ Sodium Chloride 7.9 ml 0 mg .XX ASDIRECTED PRN PRN Reason: Pain Last Admin: 11/19/19 08:26 Dose: 38.3 mg Morphine Sulfate 8 mg/Epinephrine HCl 0.3 mg/Ketorolac Tromethamine 30 mg/ Sodium Chloride 7.9 ml 0 mg .XX ONETIME ONE Stop: 11/19/19 07:31 Last Admin: 11/19/19 20:39 Dose: Not Given Diphenhydramine HCl (Benadryl) Confirm Administered Dose 50 mg .ROUTE .STK-MED ONE Stop: 11/19/19 06:10 Ephedrine Sulfate (Ephedrine Sulfate) 5 mg IVPUSH ASDIRECTED PRN PRN Reason: Hypotension Stop: 11/19/19 18:00 Ephedrine Sulfate (Ephedrine 25 Mg/5 Ml Syringe) Confirm Administered Dose 25 mg IV .STK-MED ONE Stop: 11/19/19 08:39 Epinephrine HCl (Adrenalin) Confirm Administered Dose 1 mg .ROUTE .STK-MED ONE Stop: 11/19/19 05:54 Famotidine (Pepcid) 20 mg PO Q12H [facility] Last Admin: 11/19/19 20:39 Dose: Not Given Famotidine (Pepcid) 20 mg PO Q12H [facility] Fentanyl (Sublimaze) Confirm Administered Dose 100 mcg .ROUTE .STK-MED ONE Stop: 11/19/19 06:10 Fentanyl (Sublimaze) 50 mcg IVPUSH Q5M PRN PRN Reason: Pain Stop: 11/19/19 18:00 Haloperidol Lactate (Haldol) 1 mg IVPUSH ONETIME PRN PRN Reason: PERSISTENT NAUSEA Stop: 11/19/19 12:00 Lactated Ringer's (Ringers, Lactated) 1,000 mls @ 125 mls/hr IV ASDIRECTED [facility] Stop: 11/17/19 23:00 Lactated Ringer's (Ringers, Lactated) 1,000 mls @ 125 mls/hr IV ASDIRECTED [facility] Stop: 11/19/19 23:00 Last Admin: 11/19/19 06:38 Dose: 125 mls/hr Lidocaine HCl (Xylocaine-Mpf 1%) Confirm Administered Dose 6 mls @ as directed .ROUTE .STK-MED ONE Stop: 11/19/19 06:10 Lactated Ringer's (Ringers, Lactated) Confirm Administered Dose 2,000 mls @ as directed .ROUTE .STK-MED ONE Stop: 11/19/19 06:10 Clindamycin Phosphate 900 mg/ (Sodium Chloride) 106 mls @ 200 mls/hr IV ONETIME [facility] Clindamycin Phosphate 900 mg/ (Premix) 50 mls @ 50 mls/hr IV ONETIME ONE Stop: 11/19/19 07:29 Last Admin: 11/19/19 20:38 Dose: Not Given Clindamycin Phosphate 900 mg/ (Premix) 50 mls @ 47.17 mls/hr IV Q6H [facility] Stop: 11/20/19 02:04 Last Admin: 11/20/19 00:04 Dose: 47.17 mls/hr Sodium Chloride (Normal Saline) Confirm Administered Dose 100 mls @ as directed .ROUTE .STK-MED ONE Stop: 11/19/19 07:02 Phenylephrine HCl 1 mg/ Sodium (Chloride) 10.1 mls @ 1 mls/sec IV TITRATE PRN; Protocol PRN Reason: SEE COMMENTS Stop: 11/19/19 18:00 Iodine (Iodine 2% Mild Tincture) Confirm Administered Dose 30 ml .ROUTE .STK- MED ONE Stop: 11/19/19 06:16 Last Admin: 11/19/19 08:23 Dose: 18 ml Ketamine HCl (Ketalar) Confirm Administered Dose 500 mg .ROUTE .STK-MED ONE Stop: 11/19/19 06:10 Ketorolac Tromethamine (Toradol) Confirm Administered Dose 30 mg .ROUTE .STK- MED ONE Stop: 11/19/19 06:10 Lidocaine/Sodium Bicarbonate (Buffered Lidocaine 1% In Ns 8.4%) 0.25 ml IDERM ONETIME PRN PRN Reason: Prior to IV Start Stop: 11/17/19 18:00 Lidocaine/Sodium Bicarbonate (Buffered Lidocaine 1% In Ns 8.4%) 0.25 ml IDERM ONETIME PRN PRN Reason: Prior to IV Start Stop: 11/19/19 18:00 Last Admin: 11/19/19 06:38 Dose: 0.25 ml Losartan Potassium (Cozaar) 50 mg PO ONETIME ONE Stop: 11/19/19 16:51 Last Admin: 11/19/19 16:55 Dose: 50 mg Midazolam HCl (Versed 1 Mg/Ml) Confirm Administered Dose 2 mg .ROUTE .STK-MED ONE Stop: 11/19/19 06:10 Miscellaneous Medication (Phenylephrine 1 Mg/10 Ml-Ns) Confirm Administered Dose 1 mg IV .STK-MED ONE Stop: 11/19/19 06:10 Ondansetron HCl (Zofran) Confirm Administered Dose 4 mg .ROUTE .STK-MED ONE Stop: 11/19/19 06:10 Ondansetron HCl (Zofran) 4 mg IVPUSH ONETIME PRN PRN Reason: Nausea/Vomiting Stop: 11/19/19 18:00 Propofol (Diprivan 20 Ml) Confirm Administered Dose 400 mg .ROUTE .STK-MED ONE Stop: 11/19/19 06:10 Propofol (Diprivan 20 Ml) Confirm Administered Dose 400 mg .ROUTE .STK-MED ONE Stop: 11/19/19 08:07 Ropivacaine (Naropin 0.5%) Confirm Administered Dose 30 ml .ROUTE .STK-MED ONE Stop: 11/19/19 05:54 Scopolamine (Transderm-Scop) 1.5 mg TOP ONETIME SELENE Stop: 11/17/19 18:00 Scopolamine (Transderm-Scop) 1.5 mg TOP ONETIME ONE Stop: 11/19/19 00:02 Last Admin: 11/19/19 20:36 Dose: Not Given Scopolamine (Transderm-Scop) 1.5 mg TOP ONETIME ONE Stop: 11/19/19 07:01 Last Admin: 11/19/19 06:32 Dose: 1.5 mg Sodium Chloride (Saline Flush) 10 ml FLUSH ASDIRECTED PRN PRN Reason: Keep Vein Open Stop: 11/17/19 18:00 Sodium Chloride (Saline Flush) 10 ml FLUSH ASDIRECTED PRN PRN Reason: Keep Vein Open Stop: 11/19/19 18:00 Tranexamic Acid (Cyklokapron) Confirm Administered Dose 1,000 mg .ROUTE .STK- MED ONE Stop: 11/19/19 06:16 Last Admin: 11/19/19 08:37 Dose: 1,000 mg Triamcinolone Acetonide (Kenalog-40) Confirm Administered Dose 80 mg .ROUTE .STK -MED ONE Stop: 11/19/19 06:52 Last Admin: 11/19/19 08:56 Dose: 80 mg Vancomycin HCl (Vancomycin) Confirm Administered Dose 1 gm .ROUTE .STK-MED ONE Stop: 11/19/19 06:16 Last Admin: 11/19/19 08:32 Dose: 1 gm - Exam Wound/Incisions: Dressing Dry and Intact General: Alert, Cooperative, No Acute Distress Lungs: Normal Respiratory Effort Extremities: Other (NVS intact for BLE. Gennaro's negative for BLE. ) Sepsis Event Note - Evaluation Sepsis Screening Result: No Definite Risk - Focused Exam Vital Signs: Vital Signs Temp Temp Pulse Resp BP BP Pulse Ox 11/20/19 04:16 97.7 F 63 16 124/75 93 L 11/20/19 00:05 97.8 F 18 134/78 95 11/19/19 21:26 67 156/71 H 11/19/19 20:08 97.3 F 67 16 156/71 H 95 Date Exam was Performed: 11/20/19 Time Exam was Performed: 07:20 - Problem List Review Problem List Initiated/Reviewed/Updated: Yes - My Orders Last 24 Hours: Active Orders 24 hr Category Date Time Status Patient Status [ADT] Routine ADT 11/19/19 06:35 Active Antiembolic Devices [RC] BID Care 11/19/19 06:35 Active Blood Glucose Check, Bedside [RC] QIDACANDBED Care 11/19/19 11:38 Active Cooling Warming Measures [RC] ASDIRECTED Care 11/19/19 07:27 Inactive Oxygen Therapy [RC] PRN Care 11/19/19 06:35 Active Pulse Oximetry [RC] .PRN Care 11/19/19 07:26 Active RT Incentive Spirometry [RC] Q1HWA Care 11/19/19 06:33 Active Ready for Discharge [RC] PER UNIT ROUTINE Care 11/20/19 07:16 Active Vital Signs [RC] Q4HR Care 11/19/19 06:35 Active Consult to Physician [CONS] Routine Cons 11/19/19 11:31 Active OT Evaluation and Treatment [CONS] Routine Cons 11/19/19 06:33 Active PT Evaluation and Treatment [CONS] Routine Cons 11/19/19 06:33 Active [employer] Diet [DIET] Diet 11/19/19 Lunch Active Acetaminophen/HYDROcodone [[place] 325-5 MG] Med 11/19/19 06:33 Active 1 - 2 tab PO Q4H PRN Albuterol [IJP: Ventolin HFA] Med 11/19/19 11:27 Pending 1 - 2 puff INH TID PRN Aspirin [Ecotrin] Med 11/20/19 09:00 Active 325 mg PO BID Budesonide/Formoterol Fumarate Med 11/19/19 21:00 Pending 2 puff INH BID Cholecalciferol (Vitamin D3) [Vitamin D3] Med 11/20/19 09:00 Active 5,000 unit PO DAILY Cyclobenzaprine [Flexeril] Med 11/19/19 06:33 Active 10 mg PO TID PRN Docusate Sodium [Colace] Med 11/19/19 21:00 Active 100 mg PO BID Ketorolac [Toradol] Med 11/19/19 06:33 Active 15 mg IVPUSH Q6H PRN Losartan [Cozaar] Med 11/20/19 09:00 Active 50 mg PO DAILY Magnesium Hydroxide [Milk of Magnesia] Med 11/19/19 06:34 Active 30 ml PO BID PRN Metoprolol Succinate [Toprol XL] Med 11/19/19 21:00 Active 25 mg PO BID Montelukast [Singulair] Med 11/19/19 21:00 Active 10 mg PO BEDTIME Morphine Med 11/19/19 06:34 Active 2 mg IVPUSH Q2H PRN Multivitamins,Therapeutic [Thera] Med 11/20/19 09:00 Active 1 each PO DAILY Naloxone [Narcan] Med 11/19/19 06:34 Active 0.1 mg IVPUSH Q5M PRN Nitroglycerin [Nitrostat] Med 11/19/19 11:27 Active 0.4 mg SL ASDIRECTED PRN Ondansetron [Zofran] Med 11/19/19 06:34 Active 4 mg IVPUSH Q6H PRN Pantoprazole [ProTONIX] Med 11/20/19 09:00 Active 40 mg PO DAILY Prochlorperazine [Compazine] Med 11/19/19 17:40 Active 10 mg IVPUSH Q6H PRN Remove Patch Med 11/20/19 09:00 Active 1 ea TRDERM Q24H Rosuvastatin [Crestor] Med 11/20/19 09:00 Active 5 mg PO DAILY Sennosides [Senna] Med 11/19/19 06:34 Active 8.6 mg PO BID PRN bisacodyL [Dulcolax] Med 11/19/19 06:34 Active 5 mg PO DAILY PRN guaiFENesin [Mucinex] Med 11/19/19 11:27 Active 1,200 mg PO BID PRN Antiembolic Hose [OM.PC] Per Unit Routine Oth 11/19/19 06:36 Ordered Ice Therapy [OM.PC] Per Unit Routine Oth 11/19/19 06:35 Ordered Sequential Compression Device [OM.PC] Per Unit Routine Oth 11/19/19 06:33 Ordered Resuscitation Status Routine Resus Stat 11/19/19 06:34 Ordered Medication Orders Hydrocodone Bitart/Acetaminophen ([place] 325-5 Mg) 1 - 2 tab PO Q4H PRN PRN Reason: Pain Last Admin: 11/20/19 04:29 Dose: 1 tab Admin: 11/20/19 00:11 Dose: 1 tab Admin: 11/19/19 17:01 Dose: 1 tab Admin: 11/19/19 12:16 Dose: 1 tab Admin: 11/19/19 10:54 Dose: 1 tab Aspirin (Ecotrin) 325 mg PO BID [facility] Bisacodyl (Dulcolax) 5 mg PO DAILY PRN PRN Reason: Constipation Cholecalciferol (Vitamin D3) 5,000 unit PO DAILY [facility] Cyclobenzaprine HCl (Flexeril) 10 mg PO TID PRN PRN Reason: Spasms Docusate Sodium (Colace) 100 mg PO BID [facility] Last Admin: 11/19/19 21:27 Dose: 100 mg Guaifenesin (Mucinex) 1,200 mg PO BID PRN PRN Reason: cold symptoms Ketorolac Tromethamine (Toradol) 15 mg IVPUSH Q6H PRN PRN Reason: Pain Losartan Potassium (Cozaar) 50 mg PO DAILY [facility] Magnesium Hydroxide (Milk Of Magnesia) 30 ml PO BID PRN PRN Reason: Constipation Metoprolol Succinate (Toprol Xl) 25 mg PO BID [facility] Last Admin: 11/19/19 21:26 Dose: 25 mg Miscellaneous Information (Remove Patch) 1 ea TRDERM Q24H [facility] Montelukast Sodium (Singulair) 10 mg PO BEDTIME [facility] Last Admin: 11/19/19 21:26 Dose: 10 mg Morphine Sulfate (Morphine) 2 mg IVPUSH Q2H PRN PRN Reason: Breakthrough Pain Multivitamins (Thera) 1 each PO DAILY [facility] Naloxone HCl (Narcan) 0.1 mg IVPUSH Q5M PRN PRN Reason: Oversedation Nitroglycerin (Nitrostat) 0.4 mg SL ASDIRECTED PRN PRN Reason: Chest Pain Non-Formulary Medication (Albuterol [Ijp: Ventolin Hfa]) 1 - 2 puff INH TID PRN PRN Reason: Shortness of Breath Non-Formulary Medication (Budesonide/Formoterol Fumarate) 2 puff INH BID [facility] Ondansetron HCl (Zofran) 4 mg IVPUSH Q6H PRN PRN Reason: Nausea/Vomiting Last Admin: 11/19/19 14:27 Dose: 4 mg Pantoprazole Sodium (Protonix) 40 mg PO DAILY [facility] Prochlorperazine Edisylate (Compazine) 10 mg IVPUSH Q6H PRN PRN Reason: Nausea/Vomiting Last Admin: 11/19/19 18:36 Dose: 10 mg Rosuvastatin Calcium (Crestor) 5 mg PO DAILY S[facility] Senna (Senna) 8.6 mg PO BID PRN PRN Reason: Constipation - Assessment Assessment (Free Text/Narrative):: POD#1 - left TKA - Plan Plan (Free Text/Narrative):: 1. Hgb 10.9. 2. 325mg ASA PO BID, frequent mobility, TEDs. 3. Discharge to home today if cleared by Hospitalist service and therapies. The pt's case was discussed with Dr. Kern.
--- NOTE | 2019-11-20 07:35 | PCM.CONSN ---
- General Info Date of Service: 11/20/19 Admission Dx/Problem (Free Text): Admission Diagnosis/Problem Admission Diagnosis/Problem Osteoarthritis of knee Functional Status: Reports: Pain Controlled, Tolerating Diet, Ambulating, Urinating, Incentive Spirometry. Denies: New Symptoms - Review of Systems General: Reports: No Symptoms. Denies: Fever, Chills HEENT: Reports: No Symptoms. Denies: Headaches, Sore Throat Pulmonary: Reports: No Symptoms. Denies: Shortness of Breath, Cough, Sputum, Wheezing Cardiovascular: Reports: No Symptoms. Denies: Chest Pain, Palpitations, Dyspnea on Exertion Gastrointestinal: Reports: No Symptoms. Denies: Abdominal Pain, Constipation, Diarrhea, Nausea, Vomiting Genitourinary: Reports: No Symptoms. Denies: Pain Musculoskeletal: Reports: Leg Pain Skin: Reports: No Symptoms. Denies: Cyanosis Neurological: Reports: Difficulty Walking, Gait Disturbance. Denies: Confusion Psychiatric: Reports: No Symptoms - Patient Data Vitals - Most Recent: Last Vital Signs Temp 97.7 F 11/20/19 04:16 Pulse 63 11/20/19 04:16 Resp 16 11/20/19 04:16 BP 124/75 11/20/19 04:16 Pulse Ox 93 L 11/20/19 04:16 Weight - Most Recent: 245 lb 6.4 oz I&O - Last 24 Hours: Intake & Output 11/19/19 11/20/19 11/20/19 22:59 06:59 14:59 Intake Total 1180 700 Output Total 100 1850 Balance 1080 -1150 Lab Results Last 24 Hours: Laboratory Results - last 24 hr 11/19/19 11/19/19 11/19/19 Range/Units 09:32 12:09 16:54 WBC (3.98-10.04) K/mm3 RBC (3.98-5.22) M/mm3 Hgb (11.2-15.7) gm/dl Hct (34.1-44.9) % MCV (79.4-94.8) fl MCH (25.6-32.2) pg MCHC (32.2-35.5) g/dl RDW Std Deviation (36.4-46.3) fL Plt Count (182-369) K/mm3 MPV (9.4-12.3) fl Sodium (136-145) mEq/L Potassium (3.5-5.1) mEq/L Chloride (98-107) mEq/L Carbon Dioxide (21-32) mEq/L Anion Gap (5-15) BUN (7-18) mg/dL Creatinine (0.55-1.02) mg/dL Est Cr Clr Drug Dosing mL/min Estimated GFR (MDRD) (>60) mL/min BUN/Creatinine Ratio (14-18) Glucose (80-115) mg/dL POC Glucose 135 H 138 H 153 H (80-115) mg/dL Calcium (8.5-10.1) mg/dL Total Bilirubin (0.2-1.0) mg/dL AST (15-37) U/L ALT (14-59) U/L Alkaline Phosphatase (46-116) U/L Total Protein (6.4-8.2) g/dl Albumin (3.4-5.0) g/dl Globulin gm/dL Albumin/Globulin Ratio (1-2) 11/19/19 11/20/19 11/20/19 Range/Units 21:21 05:43 05:43 WBC 12.57 H (3.98-10.04) K/mm3 RBC 3.79 L (3.98-5.22) M/mm3 Hgb 10.9 L D (11.2-15.7) gm/dl Hct 34.1 (34.1-44.9) % MCV 90.0 (79.4-94.8) fl MCH 28.8 (25.6-32.2) pg MCHC 32.0 L (32.2-35.5) g/dl RDW Std Deviation 41.8 (36.4-46.3) fL Plt Count 183 D (182-369) K/mm3 MPV 10.1 (9.4-12.3) fl Sodium 138 (136-145) mEq/L Potassium 4.1 (3.5-5.1) mEq/L Chloride 102 (98-107) mEq/L Carbon Dioxide 26 (21-32) mEq/L Anion Gap 14.1 (5-15) BUN 15 (7-18) mg/dL Creatinine 0.9 (0.55-1.02) mg/dL Est Cr Clr Drug Dosing 54.53 mL/min Estimated GFR (MDRD) > 60 (>60) mL/min BUN/Creatinine Ratio 16.7 (14-18) Glucose 207 H (80-115) mg/dL POC Glucose 191 H (80-115) mg/dL Calcium 8.9 (8.5-10.1) mg/dL Total Bilirubin 0.5 (0.2-1.0) mg/dL AST 14 L (15-37) U/L ALT 21 (14-59) U/L Alkaline Phosphatase 64 (46-116) U/L Total Protein 6.2 L (6.4-8.2) g/dl Albumin 3.2 L (3.4-5.0) g/dl Globulin 3.0 gm/dL Albumin/Globulin Ratio 1.1 (1-2) 11/20/19 Range/Units 05:50 WBC (3.98-10.04) K/mm3 RBC (3.98-5.22) M/mm3 Hgb (11.2-15.7) gm/dl Hct (34.1-44.9) % MCV (79.4-94.8) fl MCH (25.6-32.2) pg MCHC (32.2-35.5) g/dl RDW Std Deviation (36.4-46.3) fL Plt Count (182-369) K/mm3 MPV (9.4-12.3) fl Sodium (136-145) mEq/L Potassium (3.5-5.1) mEq/L Chloride (98-107) mEq/L Carbon Dioxide (21-32) mEq/L Anion Gap (5-15) BUN (7-18) mg/dL Creatinine (0.55-1.02) mg/dL Est Cr Clr Drug Dosing mL/min Estimated GFR (MDRD) (>60) mL/min BUN/Creatinine Ratio (14-18) Glucose (80-115) mg/dL POC Glucose 178 H (80-115) mg/dL Calcium (8.5-10.1) mg/dL Total Bilirubin (0.2-1.0) mg/dL AST (15-37) U/L ALT (14-59) U/L Alkaline Phosphatase (46-116) U/L Total Protein (6.4-8.2) g/dl Albumin (3.4-5.0) g/dl Globulin gm/dL Albumin/Globulin Ratio (1-2) Med Orders - Current: Current Medications Hydrocodone Bitart/Acetaminophen ([place] 325-5 Mg) 1 - 2 tab PO Q4H PRN PRN Reason: Pain Last Admin: 11/20/19 04:29 Dose: 1 tab Aspirin (Ecotrin) 325 mg PO BID [facility] Bisacodyl (Dulcolax) 5 mg PO DAILY PRN PRN Reason: Constipation Cholecalciferol (Vitamin D3) 5,000 unit PO DAILY [facility] Cyclobenzaprine HCl (Flexeril) 10 mg PO TID PRN PRN Reason: Spasms Docusate Sodium (Colace) 100 mg PO BID [facility] Last Admin: 11/19/19 21:27 Dose: 100 mg Guaifenesin (Mucinex) 1,200 mg PO BID PRN PRN Reason: cold symptoms Ketorolac Tromethamine (Toradol) 15 mg IVPUSH Q6H PRN PRN Reason: Pain Losartan Potassium (Cozaar) 50 mg PO DAILY [facility] Magnesium Hydroxide (Milk Of Magnesia) 30 ml PO BID PRN PRN Reason: Constipation Metoprolol Succinate (Toprol Xl) 25 mg PO BID [facility] Last Admin: 11/19/19 21:26 Dose: 25 mg Miscellaneous Information (Remove Patch) 1 ea TRDERM Q24H [facility] Montelukast Sodium (Singulair) 10 mg PO BEDTIME [facility] Last Admin: 11/19/19 21:26 Dose: 10 mg Morphine Sulfate (Morphine) 2 mg IVPUSH Q2H PRN PRN Reason: Breakthrough Pain Multivitamins (Thera) 1 each PO DAILY [facility] Naloxone HCl (Narcan) 0.1 mg IVPUSH Q5M PRN PRN Reason: Oversedation Nitroglycerin (Nitrostat) 0.4 mg SL ASDIRECTED PRN PRN Reason: Chest Pain Non-Formulary Medication (Albuterol [Ijp: Ventolin Hfa]) 1 - 2 puff INH TID PRN PRN Reason: Shortness of Breath Non-Formulary Medication (Budesonide/Formoterol Fumarate) 2 puff INH BID [facility] Ondansetron HCl (Zofran) 4 mg IVPUSH Q6H PRN PRN Reason: Nausea/Vomiting Last Admin: 11/19/19 14:27 Dose: 4 mg Pantoprazole Sodium (Protonix) 40 mg PO DAILY [facility] Prochlorperazine Edisylate (Compazine) 10 mg IVPUSH Q6H PRN PRN Reason: Nausea/Vomiting Last Admin: 11/19/19 18:36 Dose: 10 mg Rosuvastatin Calcium (Crestor) 5 mg PO DAILY [facility] Senna (Senna) 8.6 mg PO BID PRN PRN Reason: Constipation Discontinued Medications Albuterol (Proventil Neb Soln) 2.5 mg NEB ONETIME SELENE Stop: 11/17/19 18:00 Albuterol (Proventil Neb Soln) 2.5 mg NEB ONETIME ONE Stop: 11/19/19 00:02 Last Admin: 11/19/19 20:38 Dose: Not Given Albuterol (Proventil Neb Soln) 2.5 mg NEB ONETIME PRN PRN Reason: bronchodilation Stop: 11/19/19 13:00 Bupivacaine HCl (Sensorcaine-Mpf 0.25%) Confirm Administered Dose 30 ml .ROUTE .STK-MED ONE Stop: 11/19/19 06:16 Last Admin: 11/19/19 08:27 Dose: 30 ml Bupivacaine HCl (Sensorcaine-Mpf 0.25%) Confirm Administered Dose 10 ml .ROUTE .STK-MED ONE Stop: 11/19/19 06:52 Last Admin: 11/19/19 08:56 Dose: 4 ml Cefazolin Sodium (Ancef) Confirm Administered Dose 2 gm .ROUTE .STK-MED ONE Stop: 11/19/19 06:10 Clindamycin Phosphate (Cleocin) Confirm Administered Dose 900 mg .ROUTE .STK- MED ONE Stop: 11/19/19 06:16 Last Admin: 11/19/19 08:25 Dose: 900 mg Clindamycin Phosphate (Cleocin) Confirm Administered Dose 900 mg .ROUTE .STK- MED ONE Stop: 11/19/19 07:02 Morphine Sulfate 8 mg/Epinephrine HCl 0.3 mg/Ketorolac Tromethamine 30 mg/ Sodium Chloride 7.9 ml 0 mg .XX ASDIRECTED PRN PRN Reason: Pain Last Admin: 11/19/19 08:26 Dose: 38.3 mg Morphine Sulfate 8 mg/Epinephrine HCl 0.3 mg/Ketorolac Tromethamine 30 mg/ Sodium Chloride 7.9 ml 0 mg .XX ONETIME ONE Stop: 11/19/19 07:31 Last Admin: 11/19/19 20:39 Dose: Not Given Diphenhydramine HCl (Benadryl) Confirm Administered Dose 50 mg .ROUTE .[facility] ONE Stop: 11/19/19 06:10 Ephedrine Sulfate (Ephedrine Sulfate) 5 mg IVPUSH ASDIRECTED PRN PRN Reason: Hypotension Stop: 11/19/19 18:00 Ephedrine Sulfate (Ephedrine 25 Mg/5 Ml Syringe) Confirm Administered Dose 25 mg IV .[facility] ONE Stop: 11/19/19 08:39 Epinephrine HCl (Adrenalin) Confirm Administered Dose 1 mg .ROUTE .[facility] ONE Stop: 11/19/19 05:54 Famotidine (Pepcid) 20 mg PO Q12H [facility] Last Admin: 11/19/19 20:39 Dose: Not Given Famotidine (Pepcid) 20 mg PO Q12H [facility] Fentanyl (Sublimaze) Confirm Administered Dose 100 mcg .ROUTE .[facility] ONE Stop: 11/19/19 06:10 Fentanyl (Sublimaze) 50 mcg IVPUSH Q5M PRN PRN Reason: Pain Stop: 11/19/19 18:00 Haloperidol Lactate (Haldol) 1 mg IVPUSH ONETIME PRN PRN Reason: PERSISTENT NAUSEA Stop: 11/19/19 12:00 Lactated Ringer's (Ringers, Lactated) 1,000 mls @ 125 mls/hr IV ASDIRECTED [facility] Stop: 11/17/19 23:00 Lactated Ringer's (Ringers, Lactated) 1,000 mls @ 125 mls/hr IV ASDIRECTED [facility] Stop: 11/19/19 23:00 Last Admin: 11/19/19 06:38 Dose: 125 mls/hr Lidocaine HCl (Xylocaine-Mpf 1%) Confirm Administered Dose 6 mls @ as directed .ROUTE .[facility] ONE Stop: 11/19/19 06:10 Lactated Ringer's (Ringers, Lactated) Confirm Administered Dose 2,000 mls @ as directed .ROUTE .[facility] ONE Stop: 11/19/19 06:10 Clindamycin Phosphate 900 mg/ (Sodium Chloride) 106 mls @ 200 mls/hr IV ONETIME SELENE Clindamycin Phosphate 900 mg/ (Premix) 50 mls @ 50 mls/hr IV ONETIME ONE Stop: 11/19/19 07:29 Last Admin: 11/19/19 20:38 Dose: Not Given Clindamycin Phosphate 900 mg/ (Premix) 50 mls @ 47.17 mls/hr IV Q6H SELENE Stop: 11/20/19 02:04 Last Admin: 11/20/19 00:04 Dose: 47.17 mls/hr Sodium Chloride (Normal Saline) Confirm Administered Dose 100 mls @ as directed .ROUTE .STK-MED ONE Stop: 11/19/19 07:02 Phenylephrine HCl 1 mg/ Sodium (Chloride) 10.1 mls @ 1 mls/sec IV TITRATE PRN; Protocol PRN Reason: SEE COMMENTS Stop: 11/19/19 18:00 Iodine (Iodine 2% Mild Tincture) Confirm Administered Dose 30 ml .ROUTE .STK- MED ONE Stop: 11/19/19 06:16 Last Admin: 11/19/19 08:23 Dose: 18 ml Ketamine HCl (Ketalar) Confirm Administered Dose 500 mg .ROUTE .STK-MED ONE Stop: 11/19/19 06:10 Ketorolac Tromethamine (Toradol) Confirm Administered Dose 30 mg .ROUTE .STK- MED ONE Stop: 11/19/19 06:10 Lidocaine/Sodium Bicarbonate (Buffered Lidocaine 1% In Ns 8.4%) 0.25 ml IDERM ONETIME PRN PRN Reason: Prior to IV Start Stop: 11/17/19 18:00 Lidocaine/Sodium Bicarbonate (Buffered Lidocaine 1% In Ns 8.4%) 0.25 ml IDERM ONETIME PRN PRN Reason: Prior to IV Start Stop: 11/19/19 18:00 Last Admin: 11/19/19 06:38 Dose: 0.25 ml Losartan Potassium (Cozaar) 50 mg PO ONETIME ONE Stop: 11/19/19 16:51 Last Admin: 11/19/19 16:55 Dose: 50 mg Midazolam HCl (Versed 1 Mg/Ml) Confirm Administered Dose 2 mg .ROUTE .STK-MED ONE Stop: 11/19/19 06:10 Miscellaneous Medication (Phenylephrine 1 Mg/10 Ml-Ns) Confirm Administered Dose 1 mg IV .STK-MED ONE Stop: 11/19/19 06:10 Ondansetron HCl (Zofran) Confirm Administered Dose 4 mg .ROUTE .STK-MED ONE Stop: 11/19/19 06:10 Ondansetron HCl (Zofran) 4 mg IVPUSH ONETIME PRN PRN Reason: Nausea/Vomiting Stop: 11/19/19 18:00 Propofol (Diprivan 20 Ml) Confirm Administered Dose 400 mg .ROUTE .STK-MED ONE Stop: 11/19/19 06:10 Propofol (Diprivan 20 Ml) Confirm Administered Dose 400 mg .ROUTE .STK-MED ONE Stop: 11/19/19 08:07 Ropivacaine (Naropin 0.5%) Confirm Administered Dose 30 ml .ROUTE .STK-MED ONE Stop: 11/19/19 05:54 Scopolamine (Transderm-Scop) 1.5 mg TOP ONETIME SELENE Stop: 11/17/19 18:00 Scopolamine (Transderm-Scop) 1.5 mg TOP ONETIME ONE Stop: 11/19/19 00:02 Last Admin: 11/19/19 20:36 Dose: Not Given Scopolamine (Transderm-Scop) 1.5 mg TOP ONETIME ONE Stop: 11/19/19 07:01 Last Admin: 11/19/19 06:32 Dose: 1.5 mg Sodium Chloride (Saline Flush) 10 ml FLUSH ASDIRECTED PRN PRN Reason: Keep Vein Open Stop: 11/17/19 18:00 Sodium Chloride (Saline Flush) 10 ml FLUSH ASDIRECTED PRN PRN Reason: Keep Vein Open Stop: 11/19/19 18:00 Tranexamic Acid (Cyklokapron) Confirm Administered Dose 1,000 mg .ROUTE .STK- MED ONE Stop: 11/19/19 06:16 Last Admin: 11/19/19 08:37 Dose: 1,000 mg Triamcinolone Acetonide (Kenalog-40) Confirm Administered Dose 80 mg .ROUTE .STK -MED ONE Stop: 11/19/19 06:52 Last Admin: 11/19/19 08:56 Dose: 80 mg Vancomycin HCl (Vancomycin) Confirm Administered Dose 1 gm .ROUTE .STK-MED ONE Stop: 11/19/19 06:16 Last Admin: 11/19/19 08:32 Dose: 1 gm - Exam Quality Assessment: DVT Prophylaxis General: Alert, Oriented, Cooperative, No Acute Distress HEENT: Pupils Equal, Pupils Reactive, Mucous Membr. Moist/[place] Neck: Supple, Trachea Midline Lungs: Clear to Auscultation, Normal Respiratory Effort Cardiovascular: Regular Rate, Regular Rhythm GI/Abdominal Exam: Normal Bowel Sounds, Soft, Non-Tender, No Distention (Female) Exam: Deferred Back Exam: Normal Inspection, Full Range of Motion Extremities: Normal Capillary Refill, Leg Pain, Limited Range of Motion, Other ( Bandage in place on left leg. Cooling pack in place. ) Peripheral Pulses: 2+: Radial (L), Radial (R), Dorsalis Pedis (L), Dorsalis Pedis (R) Skin: Warm, Dry, Intact Wound/Incisions: Dressing Dry and Intact Neurological: No New Focal Deficit Psy/Mental Status: Alert, Normal Affect, Normal Mood Sepsis Event Note - Evaluation Sepsis Screening Result: No Definite Risk - Focused Exam Vital Signs: Vital Signs Temp Temp Pulse Resp BP BP Pulse Ox 11/20/19 04:16 97.7 F 63 16 124/75 93 L 11/20/19 00:05 97.8 F 18 134/78 95 11/19/19 21:26 67 156/71 H 11/19/19 20:08 97.3 F 67 16 156/71 H 95 Date Exam was Performed: 11/20/19 Time Exam was Performed: 09:04 Consult PN Assessment/Plan POD#: 1 Procedures: Procedures ASSAY OF CK (CPK) (10/05/14) ASSAY OF LACTIC ACID (05/31/16) ASSAY OF LIPASE (07/19/15) ASSAY OF NATRIURETIC PEPTIDE (06/12/17) ASSAY OF TROPONIN QUANT (06/12/17) BLOOD CULTURE FOR BACTERIA (05/31/16) C-REACTIVE PROTEIN (11/25/16) CARDIOVASCULAR STRESS TEST (07/01/19) CHEST X-RAY 1 VIEW FRONTAL (01/08/17) CHEST X-RAY 2VW FRONTAL&LATL (06/12/17) COMPLETE CBC W/AUTO DIFF WBC (06/12/17) COMPREHEN METABOLIC PANEL (06/12/17) CREATINE MB FRACTION (10/05/14) CT MAXILLOFACIAL W/O DYE (03/24/14) DIAGNOSTIC COLONOSCOPY (06/27/17) EGD BIOPSY SINGLE/MULTIPLE (06/27/17) ELECTROCARDIOGRAM TRACING (06/01/19) EMERGENCY DEPT VISIT (06/01/19) EMERGENCY DEPT VISIT (06/12/17) EMERGENCY DEPT VISIT (11/25/16) EMERGENCY DEPT VISIT (05/31/16) EMERGENCY DEPT VISIT (07/19/15) EMERGENCY DEPT VISIT (10/05/14) EXPLORATION MAXILLARY SINUS (04/17/14) FIBRIN DEGRADATION QUANT (06/12/17) GLUCOSE BLOOD TEST (06/27/17) HT MUSCLE IMAGE SPECT MULT (07/01/19) HYDRATE IV INFUSION ADD-ON (11/25/16) HYDRATION IV INFUSION INIT (07/19/15) INFLUENZA ASSAY W/OPTIC (07/19/15) METABOLIC PANEL TOTAL CA (04/17/14) MICROBE SUSCEPTIBLE BIANCA (09/22/16) PROTHROMBIN TIME (06/12/17) ROUTINE VENIPUNCTURE (06/12/17) THER/PROPH/DIAG INJ IV PUSH (11/25/16) THER/PROPH/DIAG INJ SC/IM (11/25/16) THER/PROPH/DIAG IV INF INIT (05/31/16) THROMBOPLASTIN TIME PARTIAL (06/12/17) TX/PRO/DX INJ NEW DRUG ADDON (11/25/16) URINALYSIS AUTO W/SCOPE (06/12/17) URINE BACTERIA CULTURE (09/22/16) URINE CULTURE/COLONY COUNT (09/22/16) X-RAY EXAM OF ABDOMEN (11/25/16) (1) S/P total knee arthroplasty SNOMED Code(s): 2002158990491, 043164087, 8287349535938 Code(s): Z96.659 - PRESENCE OF UNSPECIFIED ARTIFICIAL KNEE JOINT Priority: High Current Visit: Yes Qualifiers: Laterality: left Qualified Code(s): Z96.652 - Presence of left artificial knee joint (2) Osteoarthritis SNOMED Code(s): 399524688 Code(s): M19.90 - UNSPECIFIED OSTEOARTHRITIS, UNSPECIFIED SITE Priority: High Current Visit: Yes Qualifiers: Osteoarthritis location: knee Osteoarthritis type: primary Laterality: bilateral Qualified Code(s): M17.0 - Bilateral primary osteoarthritis of knee (3) Asthma SNOMED Code(s): 517123412 Code(s): J45.909 - UNSPECIFIED ASTHMA, UNCOMPLICATED Priority: Medium Current Visit: No Qualifiers: Asthma severity: unspecified severity Asthma persistence: unspecified Asthma complication type: unspecified Qualified Code(s): J45.909 - Unspecified asthma, uncomplicated (4) Type II diabetes mellitus SNOMED Code(s): 91450568 Code(s): E11.9 - TYPE 2 DIABETES MELLITUS WITHOUT COMPLICATIONS Priority: Medium Current Visit: No Qualifiers: Diabetes mellitus senior care insulin use: unspecified rn long term care insulin use status Diabetes mellitus complication status: with other specified complication Qualified Code(s): E11.69 - Type 2 diabetes mellitus with other specified complication (5) HTN (hypertension) SNOMED Code(s): 35289256 Code(s): I10 - ESSENTIAL (PRIMARY) HYPERTENSION Priority: Medium Current Visit: No Qualifiers: Hypertension type: unspecified Qualified Code(s): I10 - Essential (primary ) hypertension (6) HLD (hyperlipidemia) SNOMED Code(s): 87979804 Code(s): E78.5 - HYPERLIPIDEMIA, UNSPECIFIED Priority: Low Current Visit : No Qualifiers: Hyperlipidemia type: unspecified Qualified Code(s): E78.5 - Hyperlipidemia , unspecified (7) History of lung cancer SNOMED Code(s): 859797891, 235829851 Code(s): Z85.118 - PERSONAL HISTORY OF MALIGNANT NEOPLASM OF BRONCHUS AND LUNG Priority: Low Current Visit: No (8) BAYRON (obstructive sleep apnea) SNOMED Code(s): 86979811 Code(s): G47.33 - OBSTRUCTIVE SLEEP APNEA (ADULT) (PEDIATRIC) Priority: Medium Current Visit: No (9) Palpitations SNOMED Code(s): 30693002 Code(s): R00.2 - PALPITATIONS Priority: Low Current Visit: No (10) Diastolic dysfunction SNOMED Code(s): 4778131 Code(s): I51.89 - OTHER ILL-DEFINED HEART DISEASES Priority: Low Current Visit: No (11) History of Man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 SNOMED Code(s): 668074809 Code(s): Z86.69 - PERSONAL HISTORY OF DIS OF THE NERVOUS SYS AND SENSE ORGANS Priority: Low Current Visit: No (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 SNOMED Code(s): 59092739 Code(s): G61.0 - GUILLAIN-BARRE SYNDROME Priority: Low Current Visit: No (13) Peripheral neuropathy SNOMED Code(s): 665725164 Code(s): G62.9 - POLYNEUROPATHY, UNSPECIFIED Priority: Low Current Visit : No Qualifiers: Peripheral neuropathy type: polyneuropathy, unspecified Qualified Code(s): G62.9 - Polyneuropathy, unspecified (14) Schatzki's ring SNOMED Code(s): 316514584 Code(s): K22.2 - ESOPHAGEAL OBSTRUCTION Priority: Low Current Visit: No (15) Bilateral leg paresthesia SNOMED Code(s): 158867404 Code(s): R20.2 - PARESTHESIA OF SKIN Priority: Low Current Visit: No (16) Fibromyalgia SNOMED Code(s): 147083430 Code(s): M79.7 - FIBROMYALGIA Priority: Low Current Visit: No (17) Morbid obesity SNOMED Code(s): 819529553 Code(s): E66.01 - MORBID (SEVERE) OBESITY DUE TO EXCESS CALORIES Priority: Low Current Visit: No (18) High degree atrioventricular block SNOMED Code(s): 42375462 Code(s): I44.39 - OTHER ATRIOVENTRICULAR BLOCK Priority: Medium Current Visit: No (19) Chronic hyponatremia SNOMED Code(s): 57703818 Code(s): E87.1 - HYPO-OSMOLALITY AND HYPONATREMIA Priority: Low Current Visit: No (20) Pacemaker SNOMED Code(s): 909494088 Code(s): Z95.0 - PRESENCE OF CARDIAC PACEMAKER Priority: Low Current Visit: No (21) Recurrent UTI SNOMED Code(s): 501540410 Code(s): N39.0 - URINARY TRACT INFECTION, SITE NOT SPECIFIED Priority: Low Current Visit: No (22) Thoracic degenerative disc disease Priority: Low Current Visit: No (23) Gastro-esophageal reflux SNOMED Code(s): 155385527 Code(s): K21.9 - GASTRO-ESOPHAGEAL REFLUX DISEASE WITHOUT ESOPHAGITIS Priority: Low Current Visit: No Qualifiers: Esophagitis presence: without esophagitis Qualified Code(s): K21.9 - Gastro -esophageal reflux disease without esophagitis Problem List Initiated/Reviewed/Updated: Yes My Orders Last 24 Hours: My Active Orders 11/19/19 11:38 Blood Glucose Check, Bedside [RC] QIDACANDBED 11/19/19 17:40 Prochlorperazine [Compazine] 10 mg IVPUSH Q6H PRN Plan: I/P: Acute: S/P left total knee arthroplasty - post-operative day 1 -DVT prophylaxis and pain management per primary care team -PT/OT -IS/RT -Monitor oxygen saturation -Titrate oxygen as needed -Home medications reviewed -Vital signs stable -Monitor labs -Pre-operative Hgb was 12.8; Now 10.9 -Pre-operative GFR was 58; Now >60 -Pre-operative creatinine was 0.97; Now 0.9 -Pre-operative BUN was 9; Now 15 -Pre-operative A1C on 10/21/19 was 6.1% -Pre-operative 12-lead showed first degree HB Osteoarthritis of bilateral knee -Pain management per primary care team Chronic: Asthma Type II DM HTN HLD Carcinoid of left lung S/P surgery BAYRON Palpitations Diastolic dysfunction GERD Merom Palsy Guillain Aragon in 2010 Peripheral Neuropathy Schatzki ring Paresthesia of bilateral LE Fibromyalgia Morbid obesity High degree AV block Hyponatremia Pacemaker - atrial paced Mitral valve regurgitation Recurrent UTI Osteoarthritis Thoracic degenerative disc disease Plan: CM for discharge planning GI prophylaxis Home medications as indicated Other orders as listed above Routine AM labs She is a full code. Her PCP is Dr. Andrea From a hospitalist standpoint Caryn is doing well. Her pain is controlled. She has been up ambulating and working with therapies. Her labs and vital signs remain stable. She has been utilizing her IS. She has urinated and is off of oxygen. She is cleared from discharge pending primary team and PT/OT agreement. Thank you for allowing us to participate in the care of this patient!!
--- NOTE | 2019-11-20 07:53 | PCM48HPAN ---
Post Anesthesia Note - EVALUATION WITHIN 48HRS OF ANESTHETIC Vital Signs in Normal Range: Yes Patient Participated in Evaluation: Yes Respiratory Function Stable: Yes Airway Patent: Yes Hydration Status Stable: Yes Pain Control Satisfactory: Yes Nausea and Vomiting Control Satisfactory: Yes Mental Status Recovered: Yes Vital Signs: Last Vital Signs Temp 36.5 C 11/20/19 04:16 Pulse 63 11/20/19 04:16 Resp 16 11/20/19 04:16 BP 124/75 11/20/19 04:16 Pulse Ox 93 L 11/20/19 04:16
[2019-11-20 08:16] VITALS: BP 139/79
--- NOTE | 2019-11-20 08:40 | PCM.OPNOTE ---
- General Post-Op/Procedure Note Date of Surgery/Procedure: 11/19/19 Operative Procedure(s): left total knee arthroplasty with right knee corticosteroid injection Pre Op Diagnosis: bilateral knee osteoarthrosis Post-Op Diagnosis: Same Anesthesia Technique: Local, MAC, Spinal Primary Surgeon: Arpit Kern Anesthesia Provider: Vee Sacnhez Dredge Master: Aga Menezes Dredge Master: Nancy Ash EBL in mLs: 5 Complications: None Condition: Good Free Text/Narrative:: Intake & Output 11/19/19 11/20/19 11/20/19 22:59 06:59 14:59 Intake Total 1180 700 Output Total 100 1850 Balance 1080 -1150 4/4 9mm 29x9
[2019-11-20] MEDS ORDERED: Rosuvastatin 10 MG Tab PO SCH (09:00)
[2019-11-20] MEDS ORDERED: Multivitamins,Therapeutic Tab PO SCH (09:00)
[2019-11-20] MEDS ORDERED: Aspirin 325 MG Tab.EC PO SCH (09:00)
[2019-11-20] MEDS ORDERED: Losartan 25 MG Tab PO SCH (09:00)
[2019-11-20] MEDS ORDERED: Cholecalciferol (Vitamin D3) 5,000 UNIT Tab PO SCH (09:00)
[2019-11-20] MEDS ORDERED: Pantoprazole 40 MG Tab.CR PO SCH (09:00)
[2019-11-20] MEDS: Docusate Sodium 100 MG Cap PO SCH (09:18)
[2019-11-20] MEDS: Metoprolol Succinate 25 MG Tab.ER PO SCH (09:19)
--- NOTE | 2019-11-20 09:27 | OR ---
DATE OF OPERATION: 11/19/2019 SURGEON: Arpit Kern MD OPERATION PERFORMED: Left total knee arthroplasty with right knee corticosteroid injection. PREOPERATIVE DIAGNOSIS: Bilateral knee osteoarthrosis. POSTOPERATIVE DIAGNOSIS: Bilateral knee osteoarthrosis. ANESTHESIA: Local MAC with spinal. ANESTHESIA PROVIDER: Vee Sanchez CRNA HEARING SCREENER: Aga Menezes PA-C, and Nancy Ash LPN. ESTIMATED BLOOD LOSS: 5 mL. COMPLICATIONS: None. CONDITION: Stable. IMPLANTS: 1. Ava size 4 cemented PS femur. 2. Ava size 4 cemented [place] tibial baseplate. 3. Ava size 9 mm PS X3 polyethylene. 4. Светлана size 29 x 9 mm cemented asymmetric patella. DESCRIPTION OF PROCEDURE: The patient was identified in the preop holding area. Proper site was marked and identified by the surgeon. The patient was taken back to the operating theater. After adequate anesthesia, the patient's left lower extremity had a nonsterile tourniquet applied and it was sterilely prepped and draped in the usual sterile fashion. OR time-out was performed. The patient received 2 g IV Ancef. At this time, the left lower extremity was exsanguinated. Tourniquet was insufflated to 300 mmHg. Standard medial parapatellar incision was made. Medial parapatellar arthrotomy was created. Deep fibers of the MCL were raised and anterior fat pad was resected. At this time, attention was turned to the patella. Patella measured a 20, it was resected to a 13 for a 29 x 9 mm patella. Drill holes were then drilled and found to be in adequate position. The drill was then drilled in the distal femur and the intramedullary distal femoral cutting guide was then placed. 8 mm was resected off the distal femur and was found to be an adequate resection. Sizing guide was placed. It was found to be a size 4 cemented PS femur that was shown on the implant record at the beginning of this dictation. The drill holes were drilled for the epicondylar axis using Whitesides line and epicondyles as reference. At this time, the 4-in-1 cutting block was placed. An anterior posterior and anterior and posterior chamfer cuts were then completed. Box cut was completed at this time. Attention was turned to the tibia. The posterior medial lateral retractors were placed. The extramedullary tibial guide was placed. It was placed in the old footprint of the ACL. It was aligned with the center of the ankle and 0 degrees of slope, 9 mm was then resected off the unaffected side. There was found to be an acceptable reduction. At this time, posterior osteophytes were removed along with medial and lateral meniscus. A trial implant was placed with a correct sized tibia that was mentioned at the beginning of the dictation. A Ava size 9 mm PS X3 polyethylene insert was then placed. The patient's knee was brought through range of motion. The patella was tracking centrally and was stable to varus and valgus stress. Alignment was found to be roughly at 0 degrees. The tibia was stamped and drilled in proper rotation. Cement was mixed and all cut surfaces were irrigated and dried. The universal tibial base plate was impacted in place. Next, the Ava size 4 cemented PS femur impacted into place and the Светлана size 9 mm PS X3 polyethylene insert was placed. The patient's knee was brought into full extension. The patella was then cemented in place at this time. One liter dilute Betadine solution was irrigated through the knee along with 3 L of pulse lavage irrigation with Ancef. Periarticular injection was then completed. The patient's knee was brought through a range of motion. Once the cement had time to set up and it was found to be stable to varus valgus stress, the patella was tracking centrally with full range of motion. At this time, a #2 barbed suture was used for closure of the medial parapatellar arthrotomy. Topical tranexamic acid was placed. 2-0 Vicryl was used subcutaneously, Prineo was used for the skin. The patient tolerated the procedure well and was sent to the PACU in stable condition. After this was completed, under sterile technique, 2 mL of 40 mg Kenalog and 4 mL of 0.25% Marcaine were injected to the right knee and the patient tolerated that procedure as well. INA /[id number] NATAN
--- NOTE | 2019-11-20 12:50 | PCM.DCSUM1 ---
Discharge Summary - Hospital Course Brief History: Caryn is a 64 yo female who underwent left TKA with Dr. Kern on 11-19-2019. The procedure was completed under spinal anesthesia with sedation. The pt tolerated the procedure well and was admitted to the Medical- Surgical Unit. Medical management was provided by the Hospitalist service. The pt's Hospital course was uneventful. The pt's Hgb on POD#1 was 10.9. On POD#1, 325mg ASA BID was initiated for VTE prophylaxis. SCDs and TEDs were also ordered. A Mepilex dressing was placed at the incision site at the time of surgery and remained clean and dry. The pt participated in P.T. and O.T. and progressed well. The pt was allowed to WBAT and used a FWW for mobility. On POD#1, the pt was deemed appropriate to discharge to home with her . - Discharge Data Discharge Date: 11/20/19 Discharge Disposition: Home, Self-Care 01 Condition: Good - Referral to Home Health Primary Care Physician: Samia Andrea MD - Patient Summary/Data Operative Procedure(s) Performed: left total knee arthroplasty with right knee corticosteroid injection Consults: Consultations 11/19/19 06:33 OT Evaluation and Treatment [CONS] Routine PT Evaluation and Treatment [CONS] Routine 11/19/19 11:31 Consult to Physician [CONS] Routine - Patient Instructions Diet: Usual Diet as Tolerated Activity: Apply Ice, As Tolerated, Elevate Extremity, Full Weight Bearing Driving: Do Not Drive Showering/Bathing: May Shower Wound/Incision Care: Keep Operative Site/Wound Site Clean and Dry, Do NOT Change Dressing Notify Provider of: Fever, Increased Pain, Swelling and Redness, Drainage, Nausea and/or Vomiting Other/Special Instructions: Please get up and moving around EVERY HOUR while awake. This helps to prevent blood clots. Please use your walker and have help with mobility as needed. Take a short walk in your home every hour while awake. Please take 325mg Aspirin TWICE daily. The aspirin is being used for blood clot prevention and not for pain management so please do not miss a dose of the medication. Do not use the 81mg aspirin daily while using the 325mg aspirin twice daily. When the course of 325mg aspirin is completed, you may resume use of 81mg aspirin. You could use a medication like Pepcid or Tagamet and a medication like Prilosec or Nexium to protect your stomach while you are using the aspirin. At home, please complete the exercises that you learned during the Hospital stay. Schedule for physical therapy. Use the pain medication as needed. The medication may cause drowsiness and constipation. Contact your primary care provider for instructions if you are constipated. You may use a stool softener like docusate sodium or Colace 100mg twice daily and/or a laxative like Miralax daily for constipation. Increase your water and fiber intake while you are using the pain medication. Discontinue use of the pain medication as soon as able. Please do not use other medications that may cause drowsiness (other pain medications, anxiety pills, cold medications, sleeping pills, etc) while using the prescription pain medication. Do not use alcohol while using the pain medication. You may use acetaminophen or Tylenol for pain management, however, please ensure you are not using over 4000 mg or 4 grams of acetaminophen per day from all sources. Your pain medication has 325mg of acetaminophen per tablet. At this time, please do not use ibuprofen ( Motrin, Advil) or naproxen (Aleve) for pain management as you are using the aspirin. When the aspirin course is completed in 4 to 6 weeks, you could use ibuprofen or naproxen for pain management (if this is allowed by your primary care provider). Wear the LUIS hose during the day and you may remove these at night. Elevate the limb to decrease swelling. Place ice to the area often. Place a towel between your skin and the blue pad. Use the incentive spirometer often. Take deep breaths throughout the day. Please keep the dressing in place until follow-up. Notify the Clinic if the dressing becomes saturated. Increase your protein intake while you are healing. Please closely monitor your blood sugars and notify your primary care provider with abnormal values. Elevated blood sugars increases the risk of infection. Call the Clinic with questions or concerns - [phone]. - Discharge Plan *PRESCRIPTION DRUG MONITORING PROGRAM REVIEWED*: No *COPY OF PRESCRIPTION DRUG MONITORING REPORT IN PATIENT NIDA: No Prescriptions/Med Rec: Acetaminophen/HYDROcodone [[place] 325-5 MG] 1 - 2 tab PO Q4H PRN #60 tablet PRN Reason: Pain Aspirin [Ecotrin EC] 325 mg PO BID #84 tab.ec Cyclobenzaprine [Flexeril] 5 mg PO BID PRN #30 tablet PRN Reason: Spasms Home Medications: Home Meds Losartan [Cozaar] 50 mg PO DAILY 04/17/14 [History] Montelukast Sodium [Singulair] 10 mg PO BEDTIME 05/31/16 [History] Multivitamin [Multi-Vitamin Daily] 1 tab PO DAILY 05/31/16 [History] Pantoprazole Sodium [Protonix] 40 mg PO DAILY 05/31/16 [History] metFORMIN [Glucophage] 850 mg PO ACBREAKFAST 05/31/16 [History] Albuterol [IJP: Ventolin HFA] 1 - 2 puff INH TID PRN 06/26/17 [History] Budesonide/Formoterol Fumarate [Symbicort 80-4.5 MCG] 2 puff INH BID 06/01/19 [ History] Cholecalciferol (Vitamin D3) [Vitamin D3] 5,000 unit PO DAILY 11/14/19 [History] Metoprolol Succinate [Toprol XL] 25 mg PO BID 11/14/19 [History] Nitroglycerin 0.4 mg SL ASDIRECTED PRN 11/14/19 [History] Rosuvastatin [Crestor] 5 mg PO DAILY 11/14/19 [History] guaiFENesin [Mucinex] 1,200 mg PO BID PRN 11/14/19 [History] Acetaminophen/HYDROcodone [[place] 325-5 MG] 1 - 2 tab PO Q4H PRN #60 tablet 11/19 [Rx] Aspirin [Ecotrin EC] 325 mg PO BID #84 tab.ec 11/20/19 [Rx] Cyclobenzaprine [Flexeril] 5 mg PO BID PRN #30 tablet 11/20/19 [Rx] Docusate Sodium [Colace] 100 mg PO BID #0 cap 11/20/19 [Rx] Magnesium Hydroxide [Milk of Magnesia] 30 ml PO BID PRN cup 11/20/19 [Rx] Remove Patch 1 ea TRDERM Q24H each 11/20/19 [Rx] Sennosides [Senna] 8.6 mg PO BID PRN tablet 11/20/19 [Rx] bisacodyL [Dulcolax] 5 mg PO DAILY PRN tablet 11/20/19 [Rx] Patient Handouts: Total Knee Replacement, Qehr-vs-Egpe Referrals: Aga Menezes PA-C [Physician It Application Support Analyst] - (please follow up with Aga Menezes as listed 11/25/2019 at 200pm 12/02/2019 at 200pm 12/30/2019 at 200pm and with PT on 11/25/2019 at 300m) - Discharge Summary/Plan Comment DC Time >30 min.: No - Patient Data Vitals - Most Recent: Last Vital Signs Temp 97.3 F 11/20/19 08:08 Pulse 63 11/20/19 09:19 Resp 16 11/20/19 08:08 BP 139/79 11/20/19 09:19 Pulse Ox 93 L 11/20/19 08:08 Weight - Most Recent: 245 lb 6.4 oz I&O - Last 24 hours: Intake & Output 11/19/19 11/20/19 11/20/19 22:59 06:59 14:59 Intake Total 1180 700 360 Output Total 100 1850 Balance 1080 -1150 360 Lab Results - Last 24 hrs: Laboratory Results - last 24 hr 11/19/19 11/19/19 11/20/19 Range/Units 16:54 21:21 05:43 WBC 12.57 H (3.98-10.04) K/mm3 RBC 3.79 L (3.98-5.22) M/mm3 Hgb 10.9 L D (11.2-15.7) gm/dl Hct 34.1 (34.1-44.9) % MCV 90.0 (79.4-94.8) fl MCH 28.8 (25.6-32.2) pg MCHC 32.0 L (32.2-35.5) g/dl RDW Std Deviation 41.8 (36.4-46.3) fL Plt Count 183 D (182-369) K/mm3 MPV 10.1 (9.4-12.3) fl Sodium (136-145) mEq/L Potassium (3.5-5.1) mEq/L Chloride (98-107) mEq/L Carbon Dioxide (21-32) mEq/L Anion Gap (5-15) BUN (7-18) mg/dL Creatinine (0.55-1.02) mg/dL Est Cr Clr Drug Dosing mL/min Estimated GFR (MDRD) (>60) mL/min BUN/Creatinine Ratio (14-18) Glucose (80-115) mg/dL POC Glucose 153 H 191 H (80-115) mg/dL Calcium (8.5-10.1) mg/dL Total Bilirubin (0.2-1.0) mg/dL AST (15-37) U/L ALT (14-59) U/L Alkaline Phosphatase (46-116) U/L Total Protein (6.4-8.2) g/dl Albumin (3.4-5.0) g/dl Globulin gm/dL Albumin/Globulin Ratio (1-2) 11/20/19 11/20/19 Range/Units 05:43 05:50 WBC (3.98-10.04) K/mm3 RBC (3.98-5.22) M/mm3 Hgb (11.2-15.7) gm/dl Hct (34.1-44.9) % MCV (79.4-94.8) fl MCH (25.6-32.2) pg MCHC (32.2-35.5) g/dl RDW Std Deviation (36.4-46.3) fL Plt Count (182-369) K/mm3 MPV (9.4-12.3) fl Sodium 138 (136-145) mEq/L Potassium 4.1 (3.5-5.1) mEq/L Chloride 102 (98-107) mEq/L Carbon Dioxide 26 (21-32) mEq/L Anion Gap 14.1 (5-15) BUN 15 (7-18) mg/dL Creatinine 0.9 (0.55-1.02) mg/dL Est Cr Clr Drug Dosing 54.53 mL/min Estimated GFR (MDRD) > 60 (>60) mL/min BUN/Creatinine Ratio 16.7 (14-18) Glucose 207 H (80-115) mg/dL POC Glucose 178 H (80-115) mg/dL Calcium 8.9 (8.5-10.1) mg/dL Total Bilirubin 0.5 (0.2-1.0) mg/dL AST 14 L (15-37) U/L ALT 21 (14-59) U/L Alkaline Phosphatase 64 (46-116) U/L Total Protein 6.2 L (6.4-8.2) g/dl Albumin 3.2 L (3.4-5.0) g/dl Globulin 3.0 gm/dL Albumin/Globulin Ratio 1.1 (1-2) Med Orders - Current: Current Medications Hydrocodone Bitart/Acetaminophen ([place] 325-5 Mg) 1 - 2 tab PO Q4H PRN PRN Reason: Pain Last Admin: 11/20/19 09:19 Dose: 1 tab Aspirin (Ecotrin) 325 mg PO BID [facility] Last Admin: 11/20/19 09:19 Dose: 325 mg Bisacodyl (Dulcolax) 5 mg PO DAILY PRN PRN Reason: Constipation Cholecalciferol (Vitamin D3) 5,000 unit PO DAILY [facility] Last Admin: 11/20/19 09:18 Dose: 5,000 unit Cyclobenzaprine HCl (Flexeril) 10 mg PO TID PRN PRN Reason: Spasms Docusate Sodium (Colace) 100 mg PO BID [facility] Last Admin: 11/20/19 09:18 Dose: 100 mg Guaifenesin (Mucinex) 1,200 mg PO BID PRN PRN Reason: cold symptoms Ketorolac Tromethamine (Toradol) 15 mg IVPUSH Q6H PRN PRN Reason: Pain Losartan Potassium (Cozaar) 50 mg PO DAILY [facility] Last Admin: 11/20/19 09:19 Dose: 50 mg Magnesium Hydroxide (Milk Of Magnesia) 30 ml PO BID PRN PRN Reason: Constipation Metoprolol Succinate (Toprol Xl) 25 mg PO BID [facility] Last Admin: 11/20/19 09:19 Dose: 25 mg Miscellaneous Information (Remove Patch) 1 ea TRDERM Q24H [facility] Last Admin: 11/20/19 12:28 Dose: 1 ea Montelukast Sodium (Singulair) 10 mg PO BEDTIME [facility] Last Admin: 11/19/19 21:26 Dose: 10 mg Morphine Sulfate (Morphine) 2 mg IVPUSH Q2H PRN PRN Reason: Breakthrough Pain Multivitamins (Thera) 1 each PO DAILY [facility] Last Admin: 11/20/19 09:19 Dose: 1 each Naloxone HCl (Narcan) 0.1 mg IVPUSH Q5M PRN PRN Reason: Oversedation Nitroglycerin (Nitrostat) 0.4 mg SL ASDIRECTED PRN PRN Reason: Chest Pain Non-Formulary Medication (Albuterol [Ijp: Ventolin Hfa]) 1 - 2 puff INH TID PRN PRN Reason: Shortness of Breath Non-Formulary Medication (Budesonide/Formoterol Fumarate) 2 puff INH BID [facility] Ondansetron HCl (Zofran) 4 mg IVPUSH Q6H PRN PRN Reason: Nausea/Vomiting Last Admin: 11/19/19 14:27 Dose: 4 mg Pantoprazole Sodium (Protonix) 40 mg PO DAILY [facility] Last Admin: 11/20/19 09:19 Dose: 40 mg Prochlorperazine Edisylate (Compazine) 10 mg IVPUSH Q6H PRN PRN Reason: Nausea/Vomiting Last Admin: 11/19/19 18:36 Dose: 10 mg Rosuvastatin Calcium (Crestor) 5 mg PO DAILY [facility] Last Admin: 11/20/19 09:18 Dose: 5 mg Senna (Senna) 8.6 mg PO BID PRN PRN Reason: Constipation Discontinued Medications Albuterol (Proventil Neb Soln) 2.5 mg NEB ONETIME [facility] Stop: 11/17/19 18:00 Albuterol (Proventil Neb Soln) 2.5 mg NEB ONETIME ONE Stop: 11/19/19 00:02 Last Admin: 11/19/19 20:38 Dose: Not Given Albuterol (Proventil Neb Soln) 2.5 mg NEB ONETIME PRN PRN Reason: bronchodilation Stop: 11/19/19 13:00 Bupivacaine HCl (Sensorcaine-Mpf 0.25%) Confirm Administered Dose 30 ml .ROUTE .STK-MED ONE Stop: 11/19/19 06:16 Last Admin: 11/19/19 08:27 Dose: 30 ml Bupivacaine HCl (Sensorcaine-Mpf 0.25%) Confirm Administered Dose 10 ml .ROUTE .STK-MED ONE Stop: 11/19/19 06:52 Last Admin: 11/19/19 08:56 Dose: 4 ml Cefazolin Sodium (Ancef) Confirm Administered Dose 2 gm .ROUTE .STK-MED ONE Stop: 11/19/19 06:10 Clindamycin Phosphate (Cleocin) Confirm Administered Dose 900 mg .ROUTE .STK- MED ONE Stop: 11/19/19 06:16 Last Admin: 11/19/19 08:25 Dose: 900 mg Clindamycin Phosphate (Cleocin) Confirm Administered Dose 900 mg .ROUTE .STK- MED ONE Stop: 11/19/19 07:02 Morphine Sulfate 8 mg/Epinephrine HCl 0.3 mg/Ketorolac Tromethamine 30 mg/ Sodium Chloride 7.9 ml 0 mg .XX ASDIRECTED PRN PRN Reason: Pain Last Admin: 11/19/19 08:26 Dose: 38.3 mg Morphine Sulfate 8 mg/Epinephrine HCl 0.3 mg/Ketorolac Tromethamine 30 mg/ Sodium Chloride 7.9 ml 0 mg .XX ONETIME ONE Stop: 11/19/19 07:31 Last Admin: 11/19/19 20:39 Dose: Not Given Diphenhydramine HCl (Benadryl) Confirm Administered Dose 50 mg .ROUTE .STK-MED ONE Stop: 11/19/19 06:10 Ephedrine Sulfate (Ephedrine Sulfate) 5 mg IVPUSH ASDIRECTED PRN PRN Reason: Hypotension Stop: 11/19/19 18:00 Ephedrine Sulfate (Ephedrine 25 Mg/5 Ml Syringe) Confirm Administered Dose 25 mg IV .STK-MED ONE Stop: 11/19/19 08:39 Epinephrine HCl (Adrenalin) Confirm Administered Dose 1 mg .ROUTE .STK-MED ONE Stop: 11/19/19 05:54 Famotidine (Pepcid) 20 mg PO Q12H [facility] Last Admin: 11/19/19 20:39 Dose: Not Given Famotidine (Pepcid) 20 mg PO Q12H [facility] Fentanyl (Sublimaze) Confirm Administered Dose 100 mcg .ROUTE .STK-MED ONE Stop: 11/19/19 06:10 Fentanyl (Sublimaze) 50 mcg IVPUSH Q5M PRN PRN Reason: Pain Stop: 11/19/19 18:00 Haloperidol Lactate (Haldol) 1 mg IVPUSH ONETIME PRN PRN Reason: PERSISTENT NAUSEA Stop: 11/19/19 12:00 Lactated Ringer's (Ringers, Lactated) 1,000 mls @ 125 mls/hr IV ASDIRECTED SELENE Stop: 11/17/19 23:00 Lactated Ringer's (Ringers, Lactated) 1,000 mls @ 125 mls/hr IV ASDIRECTED [facility] Stop: 11/19/19 23:00 Last Admin: 11/19/19 06:38 Dose: 125 mls/hr Lidocaine HCl (Xylocaine-Mpf 1%) Confirm Administered Dose 6 mls @ as directed .ROUTE .STK-MED ONE Stop: 11/19/19 06:10 Lactated Ringer's (Ringers, Lactated) Confirm Administered Dose 2,000 mls @ as directed .ROUTE .STK-MED ONE Stop: 11/19/19 06:10 Clindamycin Phosphate 900 mg/ (Sodium Chloride) 106 mls @ 200 mls/hr IV ONETIME [facility] Clindamycin Phosphate 900 mg/ (Premix) 50 mls @ 50 mls/hr IV ONETIME ONE Stop: 11/19/19 07:29 Last Admin: 11/19/19 20:38 Dose: Not Given Clindamycin Phosphate 900 mg/ (Premix) 50 mls @ 47.17 mls/hr IV Q6H [facility] Stop: 11/20/19 02:04 Last Admin: 11/20/19 00:04 Dose: 47.17 mls/hr Sodium Chloride (Normal Saline) Confirm Administered Dose 100 mls @ as directed .ROUTE .STK-MED ONE Stop: 11/19/19 07:02 Phenylephrine HCl 1 mg/ Sodium (Chloride) 10.1 mls @ 1 mls/sec IV TITRATE PRN; Protocol PRN Reason: SEE COMMENTS Stop: 11/19/19 18:00 Iodine (Iodine 2% Mild Tincture) Confirm Administered Dose 30 ml .ROUTE .STK- MED ONE Stop: 11/19/19 06:16 Last Admin: 11/19/19 08:23 Dose: 18 ml Ketamine HCl (Ketalar) Confirm Administered Dose 500 mg .ROUTE .STK-MED ONE Stop: 11/19/19 06:10 Ketorolac Tromethamine (Toradol) Confirm Administered Dose 30 mg .ROUTE .STK- MED ONE Stop: 11/19/19 06:10 Lidocaine/Sodium Bicarbonate (Buffered Lidocaine 1% In Ns 8.4%) 0.25 ml IDERM ONETIME PRN PRN Reason: Prior to IV Start Stop: 11/17/19 18:00 Lidocaine/Sodium Bicarbonate (Buffered Lidocaine 1% In Ns 8.4%) 0.25 ml IDERM ONETIME PRN PRN Reason: Prior to IV Start Stop: 11/19/19 18:00 Last Admin: 11/19/19 06:38 Dose: 0.25 ml Losartan Potassium (Cozaar) 50 mg PO ONETIME ONE Stop: 11/19/19 16:51 Last Admin: 11/19/19 16:55 Dose: 50 mg Midazolam HCl (Versed 1 Mg/Ml) Confirm Administered Dose 2 mg .ROUTE .STK-MED ONE Stop: 11/19/19 06:10 Miscellaneous Medication (Phenylephrine 1 Mg/10 Ml-Ns) Confirm Administered Dose 1 mg IV .STK-MED ONE Stop: 11/19/19 06:10 Ondansetron HCl (Zofran) Confirm Administered Dose 4 mg .ROUTE .STK-MED ONE Stop: 11/19/19 06:10 Ondansetron HCl (Zofran) 4 mg IVPUSH ONETIME PRN PRN Reason: Nausea/Vomiting Stop: 11/19/19 18:00 Propofol (Diprivan 20 Ml) Confirm Administered Dose 400 mg .ROUTE .STK-MED ONE Stop: 11/19/19 06:10 Propofol (Diprivan 20 Ml) Confirm Administered Dose 400 mg .ROUTE .STK-MED ONE Stop: 11/19/19 08:07 Ropivacaine (Naropin 0.5%) Confirm Administered Dose 30 ml .ROUTE .STK-MED ONE Stop: 11/19/19 05:54 Scopolamine (Transderm-Scop) 1.5 mg TOP ONETIME [facility] Stop: 11/17/19 18:00 Scopolamine (Transderm-Scop) 1.5 mg TOP ONETIME ONE Stop: 11/19/19 00:02 Last Admin: 11/19/19 20:36 Dose: Not Given Scopolamine (Transderm-Scop) 1.5 mg TOP ONETIME ONE Stop: 11/19/19 07:01 Last Admin: 11/19/19 06:32 Dose: 1.5 mg Sodium Chloride (Saline Flush) 10 ml FLUSH ASDIRECTED PRN PRN Reason: Keep Vein Open Stop: 11/17/19 18:00 Sodium Chloride (Saline Flush) 10 ml FLUSH ASDIRECTED PRN PRN Reason: Keep Vein Open Stop: 11/19/19 18:00 Tranexamic Acid (Cyklokapron) Confirm Administered Dose 1,000 mg .ROUTE .STK- MED ONE Stop: 11/19/19 06:16 Last Admin: 11/19/19 08:37 Dose: 1,000 mg Triamcinolone Acetonide (Kenalog-40) Confirm Administered Dose 80 mg .ROUTE .STK -MED ONE Stop: 11/19/19 06:52 Last Admin: 11/19/19 08:56 Dose: 80 mg Vancomycin HCl (Vancomycin) Confirm Administered Dose 1 gm .ROUTE .STK-MED ONE Stop: 11/19/19 06:16 Last Admin: 11/19/19 08:32 Dose: 1 gm
== END 2019-11-20 12:07 | disposition home or self-care (01) | DRG 302 ==
LOC: EDSTATUS 09:45 → JD.MS 11-19 05:58
PROVIDERS: ADMIT Orthopaedic Surgery; ATTEND Orthopaedic Surgery
PROC: 0SRD0J9 Replacement of Left Knee Joint with Synthetic Substitute, Cemented, Open Approach (ICD-10-PCS; principal; 2019-11-19)
PROC: 3E0U33Z Introduction of Anti-inflammatory into Joints, Percutaneous Approach (ICD-10-PCS; 2019-11-19)
PROC: 3E0U3BZ Introduction of Anesthetic Agent into Joints, Percutaneous Approach (ICD-10-PCS; 2019-11-19)
DX: M17.0 Bilateral primary osteoarthritis of knee (principal); I10 Essential (primary) hypertension; G47.33 Obstructive sleep apnea (adult) (pediatric); G61.0 Guillain-Barre syndrome; M51.34 Other intervertebral disc degeneration, thoracic region; M79.7 Fibromyalgia; E66.01 Morbid (severe) obesity due to excess calories; K21.0 Gastro-esophageal reflux disease with esophagitis; J45.40 Moderate persistent asthma, uncomplicated; E78.5 Hyperlipidemia, unspecified; E11.40 Type 2 diabetes mellitus with diabetic neuropathy, unspecified; H54.7 Unspecified visual loss; Z90.89 Acquired absence of other organs; Z90.49 Acquired absence of other specified parts of digestive tract; Z90.710 Acquired absence of both cervix and uterus; Z88.8 Allergy status to other drugs, medicaments and biological substances; Z88.7 Allergy status to serum and vaccine; Z79.51 Long term (current) use of inhaled steroids; Z79.899 Other long term (current) drug therapy; Z79.82 Long term (current) use of aspirin; Z79.84 Long term (current) use of oral hypoglycemic drugs; Z88.0 Allergy status to penicillin; Z68.41 Body mass index [BMI] 40.0-44.9, adult; Z95.0 Presence of cardiac pacemaker; Z98.51 Tubal ligation status; Z98.1 Arthrodesis status; Z85.118 Personal history of other malignant neoplasm of bronchus and lung
CPT/HCPCS: 01402; 36415; 64450; 73560-26-LT; 73560-LT; 80053; 82962; 85027; 87641; 94761; 97110-GP; 97116-GP; 97162-GP; 97165-GO; 97530-GP; 97535-GO; 99222; 99232; A9270-GY; C1713; C1776; J0171; J0690; J0780; J1200; J1885; J2001; J2250; J2270; J2370; J2405; J2704; J2795; J3010; J3301; J3370; J3490; J7050; J7120

== ENCOUNTER 2020-07-04 06:49 | Emergency (ER) | payer BC, MEDICARE ==
[2020-07-04] MEDS ORDERED: Sodium Chloride 0.9% 10 ML Syringe FLUSH PRN (07:19)
[2020-07-04 07:21] VITALS: BP 154/92; PULSE 73
--- NOTE | 2020-07-04 07:32 | EDM.PDOC ---
ED HPI GENERAL MEDICAL PROBLEM - General Chief Complaint: Respiratory Problem Stated Complaint: GANESH SX Time Seen by Provider: 07/04/20 07:04 Source of Information: Reports: Patient History Limitations: Reports: No Limitations - History of Present Illness INITIAL COMMENTS - FREE TEXT/NARRATIVE: The patient presents with a cough and fever. Her has COVID 19 for the past week. She did not get tested but she feels she may have it. She woke up with tightness in her chest, cough and fever. She has a history of asthma and diabetes. She does not smoke. She has no shortness of breath. She has no abdominal pain, nausea, vomiting, or diarrhea. Onset: Gradual Duration: Hour(s): Location: Reports: Chest Quality: Reports: Other (tightness) Severity: Mild Improves with: Reports: None Worsens with: Reports: None Associated Symptoms: Reports: Chest Pain, Cough, Fever/Chills. Denies: Headaches, Nausea/Vomiting, Shortness of Breath Chest Pain Score (Numeric/FACES): 5 - Related Data Allergies Allergy/AdvReac Type Severity Reaction Status Date / Time cefadroxil hydrate Allergy Hives Verified 07/04/20 07:13 [From Ultracef] hydrochlorothiazide Allergy Cannot Verified 07/04/20 07:13 Remember influenza virus vaccine, Allergy Cannot Verified 07/04/20 07:13 specific Remember nitrofurantoin Allergy Hives Verified 07/04/20 07:13 [From Macrobid] Penicillins Allergy Rash Verified 07/04/20 07:13 acetaminophen [From Percocet] AdvReac Disorientat Verified 07/04/20 07:13 ion oxycodone [From Percocet] AdvReac Disorientat Verified 07/04/20 07:13 ion Home Meds: Home Meds Losartan [Cozaar] 50 mg PO DAILY 04/17/14 [History] Montelukast Sodium [Singulair] 10 mg PO BEDTIME 05/31/16 [History] Multivitamin [Multi-Vitamin Daily] 1 tab PO DAILY 05/31/16 [History] Pantoprazole Sodium [Protonix] 40 mg PO DAILY 05/31/16 [History] metFORMIN [Glucophage] 850 mg PO ACBREAKFAST 05/31/16 [History] Albuterol [IJP: Ventolin HFA] 1 - 2 puff INH TID PRN 06/26/17 [History] Budesonide/Formoterol Fumarate [Symbicort 80-4.5 MCG] 2 puff INH BID 06/01/19 [History] Cholecalciferol (Vitamin D3) [Vitamin D3] 5,000 unit PO DAILY 11/14/19 [History] Metoprolol Succinate [Toprol XL] 25 mg PO BID 11/14/19 [History] Nitroglycerin 0.4 mg SL ASDIRECTED PRN 11/14/19 [History] Rosuvastatin [Crestor] 5 mg PO DAILY 11/14/19 [History] guaiFENesin [Mucinex] 1,200 mg PO BID PRN 11/14/19 [History] Acetaminophen/HYDROcodone [[place] 325-5 MG] 1 - 2 tab PO Q4H PRN #60 tablet 11/20/19 [Rx] Aspirin [Ecotrin EC] 325 mg PO BID #84 tab.ec 11/20/19 [Rx] Cyclobenzaprine [Flexeril] 5 mg PO BID PRN #30 tablet 11/20/19 [Rx] Docusate Sodium [Colace] 100 mg PO BID #0 cap 11/20/19 [Rx] Magnesium Hydroxide [Milk of Magnesia] 30 ml PO BID PRN cup 11/20/19 [Rx] Remove Patch 1 ea TRDERM Q24H each 11/20/19 [Rx] Sennosides [Senna] 8.6 mg PO BID PRN tablet 11/20/19 [Rx] bisacodyL [Dulcolax] 5 mg PO DAILY PRN tablet 11/20/19 [Rx] Past Medical History HEENT History: Reports: Allergic Rhinitis, Impaired Vision Cardiovascular History: Reports: Arrhythmia, High Cholesterol, Hypertension, Pacemaker Other Cardiovascular History: bradycardia, palpitations, diastolic dysfunction, mitral valve regurgitation Respiratory History: Reports: Asthma, Sleep Apnea Other Respiratory History: lung cancer/tumor Gastrointestinal History: Reports: Cholelithiasis, Colon Polyp, GERD, Other (See Below) Other Gastrointestinal History: schatzki's ring Genitourinary History: Reports: UTI, 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 History: Reports: Musculoskeletal History: Reports: Fibromyalgia, Osteoarthritis, Other (See Below) Other Musculoskeletal History: carpal tunnel syndrome, thoracid degenrative disc disease, polyradiculopathy, bialter chronic knee pain, trochanteric bursitis of bilateral hips, right shoulder impingments, right supraspinatus tendonitis, polyarthralgia, it band sydnrome Neurological History: Reports: Neuropathy, Peripheral, Other (See Below) Other Neuro History: nerve biopsy, hx guillion-barre in 2011, fuentes's palsy, neroma, leg paresthesia Psychiatric History: Reports: Other (See Below) Other Psychiatric History: chronic fatigue Endocrine/Metabolic History: Reports: Diabetes, Type II, Obesity/BMI 30+ Hematologic History: Reports: Other (See Below) Other Hematologic History: easily bleeds, hyponatremia Immunologic History: Reports: None Oncologic (Cancer) History: Reports: None, Lung, Other (See Below) Other Oncologic History: carcinoid tumor left lung removed Dermatologic History: Reports: None - Infectious Disease History Infectious Disease History: Reports: Novel Coronavirus - Past Surgical History Head Surgeries/Procedures: Reports: None HEENT Surgical History: Reports: Naso-Sinus Surgery, Tonsillectomy, Other (See Below) Cardiovascular Surgical History: Reports: Pacer Respiratory Surgical History: Reports: Thoracotomy, Other (See Below) Other Respiratory Surgeries/Procedures: bronchoscopy, throacotomy with wedge resection, tumor removed. GI Surgical History: Reports: Cholecystectomy, Colonoscopy, EGD Female Surgical History: Reports: D&C, Hysterectomy, Tubal Ligation Endocrine Surgical History: Reports: None Neurological Surgical History: Reports: C-Spine, Laminectomy Musculoskeletal Surgical History: Reports: Arthroscopic Knee Other Musculoskeletal Surgeries/Procedures:: C5-C6 discectomy and fusion , bilateral foot spur removal Oncologic Surgical History: Reports: Lobectomy Dermatological Surgical History: Reports: None Social & Family History - Family History Family Medical History: Noncontributory - Tobacco Use Tobacco Use Status *Q: Never Tobacco User - Caffeine Use Caffeine Use: Reports: Coffee - Living Situation & Occupation Living situation: Reports: , with Spouse Occupation: Employed ([employer]) ED ROS GENERAL - Review of Systems Review Of Systems: See Below Constitutional: Reports: Fever, Chills HEENT: Reports: No Symptoms Respiratory: Reports: Cough. Denies: Shortness of Breath Cardiovascular: Reports: Chest Pain Endocrine: Reports: No Symptoms GI/Abdominal: Reports: No Symptoms : Reports: No Symptoms Musculoskeletal: Reports: No Symptoms ED EXAM, GENERAL - Physical Exam Exam: See Below Exam Limited By: No Limitations General Appearance: Alert, No Apparent Distress Ears: Normal External Exam Nose: Normal Inspection Head: Atraumatic, Normocephalic Neck: Normal Inspection Respiratory/Chest: No Respiratory Distress, Lungs Clear, Normal Breath Sounds Cardiovascular: Regular Rate, Rhythm, No Edema, No Murmur GI/Abdominal: Soft, Non-Tender, No Organomegaly, No Mass Back Exam: Normal Inspection Extremities: Normal Inspection Neurological: Alert, Oriented, No Motor/Sensory Deficits Course - Vital Signs Last Recorded V/S: Last Vital Signs Temp 97 F 07/04/20 07:09 Pulse 73 07/04/20 07:09 Resp 20 07/04/20 07:09 BP 154/92 H 07/04/20 07:09 Pulse Ox 97 07/04/20 07:09 - Orders/Labs/Meds Orders: Active Orders 24 hr Category Date Time Status Cardiac Monitoring [RC] . DIRECTED Care 07/04/20 07:19 Active EKG Documentation Completion [RC] STAT Care 07/04/20 07:20 Active Oxygen Therapy [RC] PRN Care 07/04/20 07:19 Active Peripheral IV Care [RC] . DIRECTED Care 07/04/20 07:20 Active Chest 1V Frontal [CR] Stat Exams 07/04/20 07:20 Taken CORONAVIRUS COVID-19 PCR PHL Stat Lab 07/04/20 07:50 Received Sodium Chloride 0.9% [Saline Flush] Med 07/04/20 07:19 Active 10 ml FLUSH ASDIRECTED PRN Peripheral IV Insertion Adult [OM.PC] Stat Oth 07/04/20 07:19 Ordered Medication Orders Sodium Chloride (Saline Flush) 10 ml FLUSH ASDIRECTED PRN PRN Reason: Keep Vein Open Last Admin: 07/04/20 07:31 Dose: 10 ml Documented by: LYNETTE Labs: Laboratory Tests 07/04/20 07/04/20 07/04/20 Range/Units 08:00 08:00 08:00 WBC 11.10 H (3.98-10.04) K/mm3 RBC 4.81 (3.98-5.22) M/mm3 Hgb 13.3 D (11.2-15.7) gm/dl Hct 41.4 (34.1-44.9) % MCV 86.1 D (79.4-94.8) fl MCH 27.7 (25.6-32.2) pg MCHC 32.1 L (32.2-35.5) g/dl RDW Std Deviation 44.8 (36.4-46.3) fL Plt Count 243 (182-369) K/mm3 MPV 9.5 (9.4-12.3) fl Neut % (Auto) 75.6 H (34.0-71.1) % Lymph % (Auto) 13.2 L (19.3-51.7) % [place] % (Auto) 10.3 (4.7-12.5) % Eos % (Auto) 0.5 L (0.7-5.8) Baso % (Auto) 0.1 (0.1-1.2) % Neut # (Auto) 8.39 H (1.56-6.13) K/mm3 Lymph # (Auto) 1.47 (1.18-3.74) K/mm3 [place] # (Auto) 1.14 H (0.24-0.36) K/mm3 Eos # (Auto) 0.06 (0.04-0.36) K/mm3 Baso # (Auto) 0.01 (0.01-0.08) K/mm3 Manual Slide Review Normal smear D-Dimer, Quantitative 1.04 H (0.19-0.50) mg/L Sodium 140 (136-145) mEq/L Potassium 4.1 (3.5-5.1) mEq/L Chloride 102 (98-107) mEq/L Carbon Dioxide 28 (21-32) mEq/L Anion Gap 14.1 (5-15) BUN 22 H (7-18) mg/dL Creatinine 1.1 H (0.55-1.02) mg/dL Est Cr Clr Drug Dosing 44.62 mL/min Estimated GFR (MDRD) 50 (>60) mL/min BUN/Creatinine Ratio 20.0 H (14-18) Glucose 117 H (80-115) mg/dL Lactic Acid (0.4-2.0) mmol/L Calcium 9.2 (8.5-10.1) mg/dL Ferritin (8-252) ng/ml Total Bilirubin 0.5 (0.2-1.0) mg/dL AST 15 (15-37) U/L ALT 29 (14-59) U/L Alkaline Phosphatase 103 (46-116) U/L Lactate Dehydrogenase 200 (81-234) U/L Troponin I < 0.017 (0.00-0.056) ng/mL C-Reactive Protein 0.2 (<1.0) mg/dL Total Protein 7.1 (6.4-8.2) g/dl Albumin 3.8 (3.4-5.0) g/dl Globulin 3.3 gm/dL Albumin/Globulin Ratio 1.2 (1-2) 07/04/20 07/04/20 Range/Units 08:00 08:00 WBC (3.98-10.04) K/mm3 RBC (3.98-5.22) M/mm3 Hgb (11.2-15.7) gm/dl Hct (34.1-44.9) % MCV (79.4-94.8) fl MCH (25.6-32.2) pg MCHC (32.2-35.5) g/dl RDW Std Deviation (36.4-46.3) fL Plt Count (182-369) K/mm3 MPV (9.4-12.3) fl Neut % (Auto) (34.0-71.1) % Lymph % (Auto) (19.3-51.7) % [place] % (Auto) (4.7-12.5) % Eos % (Auto) (0.7-5.8) Baso % (Auto) (0.1-1.2) % Neut # (Auto) (1.56-6.13) K/mm3 Lymph # (Auto) (1.18-3.74) K/mm3 [place] # (Auto) (0.24-0.36) K/mm3 Eos # (Auto) (0.04-0.36) K/mm3 Baso # (Auto) (0.01-0.08) K/mm3 Manual Slide Review D-Dimer, Quantitative (0.19-0.50) mg/L Sodium (136-145) mEq/L Potassium (3.5-5.1) mEq/L Chloride (98-107) mEq/L Carbon Dioxide (21-32) mEq/L Anion Gap (5-15) BUN (7-18) mg/dL Creatinine (0.55-1.02) mg/dL Est Cr Clr Drug Dosing mL/min Estimated GFR (MDRD) (>60) mL/min BUN/Creatinine Ratio (14-18) Glucose (80-115) mg/dL Lactic Acid 1.3 (0.4-2.0) mmol/L Calcium (8.5-10.1) mg/dL Ferritin 43 (8-252) ng/ml Total Bilirubin (0.2-1.0) mg/dL AST (15-37) U/L ALT (14-59) U/L Alkaline Phosphatase (46-116) U/L Lactate Dehydrogenase (81-234) U/L Troponin I (0.00-0.056) ng/mL C-Reactive Protein (<1.0) mg/dL Total Protein (6.4-8.2) g/dl Albumin (3.4-5.0) g/dl Globulin gm/dL Albumin/Globulin Ratio (1-2) Meds: Medications Generic Name Dose Route Start Last Admin Trade Name Freq PRN Reason Stop Dose Admin Sodium Chloride 10 ml 07/04/20 07:19 07/04/20 07:31 Saline Flush FLUSH 10 ml ASDIRECTED PRN Administration Keep Vein Open - Re-Assessments/Exams Free Text/Narrative Re-Assessment/Exam: 07/04/20 07:32 I ordered an IV saline lock, EKG, CXR, labs, lactic acid and COVID 19 test. 07/04/20 09:35 Her EKG shows a paced rhythm. Her CXR shows nothing acute. Her WBC was slightly elevated at 11.1. Her D-dimer was elevated at 1.04 consistent with COVID 19 infection. Her troponin is negative. I will discharge her home. Departure - Departure Time of Disposition: 09:40 Disposition: Home, Self-Care 01 Condition: Good Clinical Impression: Viral upper respiratory illness, Suspected COVID-19 virus infection - Discharge Information *PRESCRIPTION DRUG MONITORING PROGRAM REVIEWED*: Not Applicable *COPY OF PRESCRIPTION DRUG MONITORING REPORT IN PATIENT NIDA: Not Applicable Referrals: Samia Andrea MD [Primary Care Provider] - 1 Week Forms: ED Department Discharge Additional Instructions: Drink plenty of fluids. Take your medications as prescribed. Take tylenol or motrin for any fever or pain. Check your oxygen saturations and if they are below 90% please return of if you feel worse. Sepsis Event Note (ED) - Evaluation Sepsis Screening Result: No Definite Risk - Focused Exam Vital Signs: Vital Signs Temp Pulse Resp BP Pulse Ox 07/04/20 07:09 97 F 73 20 154/92 H 97 - My Orders Last 24 Hours: My Active Orders 07/04/20 07:19 Cardiac Monitoring [RC] . DIRECTED Oxygen Therapy [RC] PRN Sodium Chloride 0.9% [Saline Flush] 10 ml FLUSH ASDIRECTED PRN Peripheral IV Insertion Adult [OM.PC] Stat 07/04/20 07:20 EKG Documentation Completion [RC] STAT Peripheral IV Care [RC] . DIRECTED Chest 1V Frontal [CR] Stat 07/04/20 07:50 CORONAVIRUS COVID-19 PCR PHL Stat - Assessment/Plan Last 24 Hours: My Active Orders 07/04/20 07:19 Cardiac Monitoring [RC] . DIRECTED Oxygen Therapy [RC] PRN Sodium Chloride 0.9% [Saline Flush] 10 ml FLUSH ASDIRECTED PRN Peripheral IV Insertion Adult [OM.PC] Stat 07/04/20 07:20 EKG Documentation Completion [RC] STAT Peripheral IV Care [RC] . DIRECTED Chest 1V Frontal [CR] Stat 07/04/20 07:50 CORONAVIRUS COVID-19 PCR PHL Stat
--- NOTE | 2020-07-05 09:57 | CR ---
PROCEDURE INFORMATION: Exam: XR Chest, 1 View Exam date and time: 07/04/2020 7:08 AM Age: 64 years old Clinical indication: Other: Under covid-19 precautions. Spouse has covid-19; Chest pain; Type not specified; Prior surgery; Surgery date: 6+ months; Surgery type: Pacemaker TECHNIQUE: Imaging protocol: XR of the chest Views: 1 view. COMPARISON: DX Chest 2V 06/12/2017 11:52 PM FINDINGS: Tubes, catheters and devices: Pacemaker. Lungs: Unremarkable. No consolidation. Pleural space: Unremarkable. No pleural effusion. No pneumothorax. Heart/Mediastinum: Unremarkable. No cardiomegaly. Vasculature: Aortic calcifications. Bones/joints: Postoperative changes lower cervical spine. Old left rib fractures. IMPRESSION: No infiltrate identified. Thank you for allowing us to participate in the care of your patient. Dictated and Authenticated by: Clementina Ford MD 07/04/2020 8:57 AM Central Time ([place] & [place]) NATAN
== END 2020-07-04 10:00 | disposition home or self-care (01) ==
LOC: JD.ED 06:49
DX: U07.1 COVID-19 (principal); I10 Essential (primary) hypertension; E78.00 Pure hypercholesterolemia, unspecified; J45.909 Unspecified asthma, uncomplicated; K21.9 Gastro-esophageal reflux disease without esophagitis; E11.42 Type 2 diabetes mellitus with diabetic polyneuropathy; E66.9 Obesity, unspecified; Z88.0 Allergy status to penicillin; Z88.5 Allergy status to narcotic agent; Z88.7 Allergy status to serum and vaccine; Z88.8 Allergy status to other drugs, medicaments and biological substances; Z79.82 Long term (current) use of aspirin; Z79.899 Other long term (current) drug therapy; Z90.710 Acquired absence of both cervix and uterus; Z98.51 Tubal ligation status; Z90.49 Acquired absence of other specified parts of digestive tract; Z68.41 Body mass index [BMI] 40.0-44.9, adult
CPT/HCPCS: 36415; 71045; 71045-26; 80053; 82728; 83605; 83615; 84484; 85025; 85379; 86140; 93005; 99284-25; U0002

== ENCOUNTER 2020-07-14 20:52 | Emergency (ER) | payer BC, MEDICARE ==
[2020-07-14 21:14] VITALS: BP 137/76; PULSE 82
[2020-07-14] MEDS ORDERED: Albuterol/Ipratropium 3.0-0.5 MG/3 ML Neb Soln NEB ONE (21:51)
--- NOTE | 2020-07-14 22:05 | EDM.PDOC ---
ED HPI GENERAL MEDICAL PROBLEM - General Chief Complaint: Respiratory Problem Stated Complaint: HAD COVID/HAS ASTHMA/WHEEZING Time Seen by Provider: 07/14/20 21:06 Source of Information: Reports: Patient History Limitations: Reports: No Limitations - History of Present Illness INITIAL COMMENTS - FREE TEXT/NARRATIVE: Mrs. Aguirre is a very pleasant 65-year-old woman who, medical records indicate, was seen in this ED on 07/04/2020 with chest tightness, cough, and fever, with the knowledge that her had tested positive for the SARS-CoV-2 virus. Her work-up in the ED was grossly unremarkable, however, her swab for the SARS-CoV-2 virus subsequently returned positive. She now presents to the ED stating that she has had generalized exhaustion ever since 07/04/2020, as well as dyspnea on exertion on and off for the past 4 days, worse today. She states that she developed a cough with wheezing around 19:00 tonight. She states that she took her Symbicort and albuterol by [facility] (does not own a space chamber or peak flow meter), with no improvement in her symptoms, therefore she came to the ED. No recent fever, nausea, vomiting, constipation, or diarrhea. Here in the ED, the patient is found to be slightly tachypneic at 24 rpm, otherwise, she is hemodynamically stable, afebrile, saturating 93% on room air. The patient's PCP is Dr. Samia Andrea. Her Finish Opener is Dr. Clarisa Vazquez. Her Neurosurgeon is Dr. Camron Johnson. Treatments FORGING DIE FINISHER: Reports: Other Medication(s) Other Treatments FORGING DIE FINISHER: inhalers - Related Data Allergies Allergy/AdvReac Type Severity Reaction Status Date / Time cefadroxil hydrate Allergy Hives Verified 07/14/20 21:05 [From Ultracef] hydrochlorothiazide Allergy Cannot Verified 07/14/20 21:05 Remember influenza virus vaccine, Allergy Cannot Verified 07/14/20 21:05 specific Remember nitrofurantoin Allergy Hives Verified 07/14/20 21:05 [From Macrobid] Penicillins Allergy Rash Verified 07/14/20 21:05 acetaminophen [From Percocet] AdvReac Disorientat Verified 07/14/20 21:05 ion oxycodone [From Percocet] AdvReac Disorientat Verified 07/14/20 21:05 ion Home Meds: Home Meds Losartan [Cozaar] 50 mg PO DAILY 04/17/14 [History] Montelukast Sodium [Singulair] 10 mg PO BEDTIME 05/31/16 [History] Multivitamin [Multi-Vitamin Daily] 1 tab PO DAILY 05/31/16 [History] Pantoprazole Sodium [Protonix] 40 mg PO DAILY 05/31/16 [History] metFORMIN [Glucophage] 850 mg PO ACBREAKFAST 05/31/16 [History] Albuterol [IJP: Ventolin HFA] 1 - 2 puff INH TID PRN 06/26/17 [History] Budesonide/Formoterol Fumarate [Symbicort 80-4.5 MCG] 2 puff INH BID 06/01/19 [History] Cholecalciferol (Vitamin D3) [Vitamin D3] 5,000 unit PO DAILY 11/14/19 [History] Metoprolol Succinate [Toprol XL] 25 mg PO BID 11/14/19 [History] Nitroglycerin 0.4 mg SL ASDIRECTED PRN 11/14/19 [History] Rosuvastatin [Crestor] 5 mg PO DAILY 11/14/19 [History] guaiFENesin [Mucinex] 1,200 mg PO BID PRN 11/14/19 [History] Docusate Sodium [Colace] 100 mg PO BID #0 cap 11/20/19 [Rx] bisacodyL [Dulcolax] 5 mg PO DAILY PRN tablet 11/20/19 [Rx] Aspirin [Ecotrin EC] 81 mg PO DAILY 07/14/20 [History] Past Medical History HEENT History: Reports: Allergic Rhinitis, Impaired Vision Cardiovascular History: Reports: Arrhythmia, Heart Murmur (mitral valve regurgitation), High Cholesterol, Hypertension Respiratory History: Reports: Asthma (PFT-proven), Sleep Apnea (nightly CPAP 4) Gastrointestinal History: Reports: Colon Polyp, GERD (with Schatzki ring) Musculoskeletal History: Reports: Osteoarthritis Neurological History: Reports: Other (See Below) (Guillain-Leo syndrome 2010) Psychiatric History: Reports: Other (See Below) (Fibromyalgia, Chronic fatigue) Endocrine/Metabolic History: Reports: Diabetes, Type II, Obesity/BMI 30+ Oncologic (Cancer) History: Reports: Lung (carcinoid tumor left lung, s/p excision) - Past Surgical History HEENT Surgical History: Reports: Naso-Sinus Surgery, Oral Surgery (dental extrac tions), Tonsillectomy Cardiovascular Surgical History: Reports: Pacer Respiratory Surgical History: Reports: Other (See Below) (Bronchoscopy) GI Surgical History: Reports: Cholecystectomy (around 2010), Colonoscopy (x 3), EGD (x 1) Female Surgical History: Reports: D&C, Hysterectomy (partial), Tubal Ligation Neurological Surgical History: Reports: C-Spine (C5-C6 ACDF) Musculoskeletal Surgical History: Reports: Arthroscopic Knee (left), Knee Re placement (left), Other (See Below) (Oral feet bone spur removal) Oncologic Surgical History: Reports: Other (See Below) (Left lung wedge resection of carcinoid tumor) Social & Family History - Family History Family Medical History: No Pertinent Family History - Tobacco Use Tobacco Use Status *Q: Never Tobacco User - Caffeine Use Caffeine Use: Reports: Coffee - Alcohol Use Alcohol Use History: Yes Alcohol Use Frequency: Rarely - Recreational Drug Use Recreational Drug Use: No - Living Situation & Occupation Living situation: Reports: , with Spouse Occupation: Employed ([employer]) ED ROS GENERAL - Review of Systems Review Of Systems: Comprehensive ROS is negative, except as noted in HPI. ED EXAM, GENERAL - Physical Exam Exam: See Below Exam Limited By: No Limitations General Appearance: Alert, WD/WN, No Apparent Distress Ears: Normal External Exam, Hearing Grossly Normal Nose: Normal Inspection Throat/Mouth: Normal Inspection, Normal Lips, Normal Voice, No Airway Compromise Head: Atraumatic, Normocephalic Neck: Normal Inspection, Full Range of Motion Respiratory/Chest: No Respiratory Distress, Lungs Clear, Normal Breath Sounds, No Accessory Muscle Use, Rhonchi (mild, expiratory only), Wheezing (mild, expiratory only). No: Decreased Breath Sounds, Crackles, Stridor, Prolonged Expiration Cardiovascular: Normal Peripheral Pulses, Regular Rate, Rhythm, No Gallop, No JVD, No Murmur, No Rub Peripheral Pulses: 3+: Radial (L), Radial (R) GI/Abdominal: Normal Bowel Sounds, Soft, Non-Tender, No Organomegaly, No Distention, No Abnormal Bruit, No Mass Back Exam: Normal Inspection, Full Range of Motion, NT Extremities: Normal Inspection, Normal Range of Motion, Normal Capillary Refill Neurological: Alert, Oriented, Normal Cognition, No Motor/Sensory Deficits Psychiatric: Normal Affect Skin Exam: Warm, Dry, Intact, Normal Color, No Rash Course - Vital Signs Last Recorded V/S: Last Vital Signs Temp 36.3 C 07/14/20 21:12 Pulse 82 07/14/20 21:12 Resp 24 H 07/14/20 21:12 BP 137/76 07/14/20 21:12 Pulse Ox 94 L 07/14/20 21:51 - Orders/Labs/Meds Orders: Active Orders 24 hr Category Date Time Status RT Aerosol Therapy [RC] ASDIRECTED Care 07/14/20 21:51 Active Chest 2V [CR] Stat Exams 07/14/20 21:50 Taken Meds: Medications Discontinued Medications Generic Name Dose Route Start Last Admin Trade Name Perri PRN Reason Stop Dose Admin Albuterol/Ipratropium 3 ml 07/14/20 21:51 07/14/20 22:07 Duoneb 3.0-0.5 Mg/3 Ml NEB 07/14/20 21:52 3 ml ONETIME ONE Administration - Re-Assessments/Exams Free Text/Narrative Re-Assessment/Exam: 07/14/20 21:52 As above, the patient tested positive for the SARS-CoV-2 virus on 07/04/2020, after her had already tested positive, and now presents the ED with 4 days on and off of dyspnea on exertion, worse today, along with a cough with wheezing since 19:00 tonight. She states that her symptoms did not improve despite taking Singulair and an albuterol by [facility], however, she does not own a spacer chamber. She is slightly tachypneic, but afebrile, saturating 93% on room air. On examination, she has mild expiratory rhonchi/wheezing, but no prolonged expiratory phase and overall good air movement. I have ordered a chest x-ray, however, I do not see an indication for blood work at this time. The patient will be given a DuoNeb, and I have asked the respiratory therapist to provide the patient with both the peak flow meter and a space chamber. 07/14/20 23:03 2-view chest radiograph is read by [facility] as "Moderate to severe diffuse acute airspace disease most compatible with COVID 19 related pneumonia in this patient with a positive history." 07/14/20 23:13 I reevaluated the patient. Following the DuoNeb, the patient feels much better. Her lungs are now completely clear to auscultation bilaterally. I discussed her chest x-ray results, noting that there appears to be a negative change since 07/04/2020, consistent with her known COVID-19. I explained, however, that unless her oxygen saturation drops down to 88% or below, there are no current treatments for COVID-19. The patient does have a pulse oximeter at home. I recommended that she continue to monitor her oxygen saturation, and that if it drops down to 90% consistently, she should return to the ED for reevaluation. The respiratory therapist provided the patient with both a peak flow meter and a spacer chamber. I recommended to the patient that she learn how to use her peak flow meter, properly, so that she knows what her normal values are. I recommended that if she is having shortness of breath but that her peak flow is in the green zone, that she not take albuterol, but if her peak flow was down to the yellow or red zone, that she take albuterol as often if necessary to get relief, but that if she requires albuterol more often than every 4 hours, that she be seen by a doctor. The patient expressed understanding. Departure - Departure Time of Disposition: 23:16 Disposition: Home, Self-Care 01 Condition: Good Clinical Impression: COVID-19, Asthma exacerbation - Discharge Information *PRESCRIPTION DRUG MONITORING PROGRAM REVIEWED*: Not Applicable *COPY OF PRESCRIPTION DRUG MONITORING REPORT IN PATIENT NIDA: Not Applicable Referrals: Samia Andrea MD [Primary Care Provider] - Clarisa Vazquez Om, MD [Ordering Only Provider] - Camron Johnson MD [Ordering Only Provider] - Forms: ED Department Discharge Additional Instructions: You were seen in the emergency room after doing exhausted since 07/04/2020, shortness of breath with exertion on and off for the past 4 days, then developing a cough with wheezing tonight, all in the setting of a diagnosis of COVID-19. Work-up in the ER included a chest x-ray, which showed infiltrates on both of your lungs consistent with COVID-19. Your wheezing essentially resolved following a single DuoNeb. You were provided with both a peak flow meter and a spacer chamber by the respiratory therapist. Get to know how to use your peak flow meter properly, so that you know what your normal values are. If you are having shortness of breath and wheezing, with or without a cough, check your peak flow. If it is in the green zone, do not take albuterol, however, if it is in the yellow or red zone, you should take albuterol. Always use your spacer chamber whenever you are taking a medicine by metered-dose inhaler. May repeat albuterol as often as necessary to get relief of your shortness of breath and wheezing, however, if you require albuterol more often than every 4 hours, you need to be seen by a doctor. As discussed, we recommend that you check your oxygen saturation several times a day. If it drops to 90% or below, consistently, we recommend that you return to the ER for reevaluation. Be aware that treatment for COVID-19 will not be initiated unless your oxygen saturation is 88% or below, on room air. It is imperative that both you and your strictly quarantine until you both test negative, twice. If any other problems, please do not hesitate to return to the ER. Sepsis Event Note (ED) - Evaluation Sepsis Screening Result: No Definite Risk - Focused Exam Vital Signs: Vital Signs Temp Pulse Resp BP Pulse Ox Pulse Ox 07/14/20 21:51 94 L 07/14/20 21:12 36.3 C 82 24 H 137/76 93 L - My Orders Last 24 Hours: My Active Orders 07/14/20 21:50 Chest 2V [CR] Stat 07/14/20 21:51 RT Aerosol Therapy [RC] ASDIRECTED - Assessment/Plan Last 24 Hours: My Active Orders 07/14/20 21:50 Chest 2V [CR] Stat 07/14/20 21:51 RT Aerosol Therapy [RC] ASDIRECTED
--- NOTE | 2020-07-15 08:48 | CR ---
PROCEDURE INFORMATION: Exam: XR Chest, 2 Views Exam date and time: 07/14/2020 10:33 PM Age: 65 years old Clinical indication: Cough and wheezing; Patient HX: Covid positive, increased weakness, wheezing TECHNIQUE: Imaging protocol: XR of the chest Views: 2 views. COMPARISON: CR Chest 1V Frontal 07/04/2020 7:08 AM FINDINGS: Tubes, catheters and devices: A pacemaker device is present, and its leads are in appropriate position. Lungs: Moderate to severe scattered bilateral patchy and ground-glass airspace opacities seen throughout the lungs. Pleural space: Unremarkable. No pleural effusion. No pneumothorax. Heart/Mediastinum: The heart is mildly enlarged. Bones/joints: No acute abnormality or aggressive osseous lesion. IMPRESSION: Moderate to severe diffuse acute airspace disease most compatible with COVID 19 related pneumonia in this patient with a positive history. Thank you for allowing us to participate in the care of your patient. Dictated and Authenticated by: Tom Ochoa MD 07/14/2020 11:59 PM Central Time ([place] & [place]) [facility]
== END 2020-07-14 23:28 | disposition home or self-care (01) ==
LOC: JD.ED 20:52
DX: U07.1 COVID-19 (principal); J45.901 Unspecified asthma with (acute) exacerbation; E78.00 Pure hypercholesterolemia, unspecified; I10 Essential (primary) hypertension; K21.9 Gastro-esophageal reflux disease without esophagitis; M19.90 Unspecified osteoarthritis, unspecified site; E11.9 Type 2 diabetes mellitus without complications; E66.9 Obesity, unspecified; Z68.41 Body mass index [BMI] 40.0-44.9, adult; Z88.8 Allergy status to other drugs, medicaments and biological substances; Z88.7 Allergy status to serum and vaccine; Z88.0 Allergy status to penicillin; Z88.5 Allergy status to narcotic agent; Z88.6 Allergy status to analgesic agent; Z79.899 Other long term (current) drug therapy; Z79.82 Long term (current) use of aspirin
CPT/HCPCS: 71046; 71046-26; 94640; 99283; 99285-25; J7620-GY

== ENCOUNTER 2021-10-24 22:49 | Emergency (ER) | payer MEDICARE, OTHER ==
[2021-10-25] VITALS: BP 171/59; PULSE 63
== END 2021-10-24 23:41 | disposition home or self-care (01) ==
LOC: JD.ED 22:49
DX: I10 Essential (primary) hypertension (principal); E11.9 Type 2 diabetes mellitus without complications; K21.9 Gastro-esophageal reflux disease without esophagitis; M19.90 Unspecified osteoarthritis, unspecified site; E66.9 Obesity, unspecified; Z68.41 Body mass index [BMI] 40.0-44.9, adult; Z88.0 Allergy status to penicillin; Z88.1 Allergy status to other antibiotic agents; Z88.7 Allergy status to serum and vaccine; Z88.8 Allergy status to other drugs, medicaments and biological substances; Z79.899 Other long term (current) drug therapy; Z79.01 Long term (current) use of anticoagulants
CPT/HCPCS: 99283

== ENCOUNTER 2022-03-13 06:55 | Day surgery (SDC) | payer MEDICARE, OTHER ==
[~2022-03-13 06:55] MED LIST changes: -Albuterol 0.083% 2.5 MG/3 ML Neb Soln NEB SCH; -Scopolamine 1.5 MG Transdermal Patch TOP SCH; +Sodium Chloride 0.9% 10 ML Syringe FLUSH SCH
[2022-03-13] MEDS ORDERED: Propofol 200 MG/20 ML SDV ONE (06:58)
[2022-03-13] MEDS ORDERED: Midazolam 1 MG/ML 2 ML SDV ONE (08:02)
[2022-03-13] MEDS ORDERED: Lidocaine 1% 4 ML ONE (08:27)
[2022-03-13 09:41] VITALS: BP 157/76; PULSE 73
== END 2022-03-13 09:32 | disposition home or self-care (01) ==
LOC: JD.SDS 06:55
PROVIDERS: ATTEND Surgery
DX: K31.7 Polyp of stomach and duodenum (principal); R07.89 Other chest pain; I10 Essential (primary) hypertension; I48.91 Unspecified atrial fibrillation; J45.909 Unspecified asthma, uncomplicated; G47.33 Obstructive sleep apnea (adult) (pediatric); E66.9 Obesity, unspecified; E78.5 Hyperlipidemia, unspecified; E11.40 Type 2 diabetes mellitus with diabetic neuropathy, unspecified; M48.00 Spinal stenosis, site unspecified; K21.9 Gastro-esophageal reflux disease without esophagitis; G51.0 Bell's palsy; M19.90 Unspecified osteoarthritis, unspecified site; F32.A Depression, unspecified; Z95.0 Presence of cardiac pacemaker; Z87.19 Personal history of other diseases of the digestive system; Z88.0 Allergy status to penicillin; Z88.1 Allergy status to other antibiotic agents; Z88.5 Allergy status to narcotic agent; Z88.6 Allergy status to analgesic agent; Z68.30 Body mass index [BMI] 30.0-30.9, adult; Z79.84 Long term (current) use of oral hypoglycemic drugs; Z79.899 Other long term (current) drug therapy; Z79.51 Long term (current) use of inhaled steroids; Z79.82 Long term (current) use of aspirin; Z79.01 Long term (current) use of anticoagulants; Z98.890 Other specified postprocedural states; Z88.7 Allergy status to serum and vaccine
CPT/HCPCS: 43239; J2250; J2704; J7120; 00731

== ENCOUNTER 2022-08-05 10:36 | Emergency (ER) | payer MEDICARE, OTHER ==
[2022-08-05 12:00] VITALS: BP 154/77; PULSE 81
[2022-08-05] MEDS ORDERED: predniSONE 10 MG Tab PO ONE (12:21)
[2022-08-05] MEDS ORDERED: Acetaminophen/HYDROcodone 325-5 MG Tab PO ONE (12:21)
== END 2022-08-05 13:00 | disposition home or self-care (01) ==
LOC: JD.ED 10:36
DX: M54.50 Low back pain, unspecified (principal); E78.00 Pure hypercholesterolemia, unspecified; I10 Essential (primary) hypertension; J45.909 Unspecified asthma, uncomplicated; K21.9 Gastro-esophageal reflux disease without esophagitis; M19.90 Unspecified osteoarthritis, unspecified site; E11.9 Type 2 diabetes mellitus without complications; E66.9 Obesity, unspecified; Z68.41 Body mass index [BMI] 40.0-44.9, adult; Z88.8 Allergy status to other drugs, medicaments and biological substances; Z88.1 Allergy status to other antibiotic agents; Z88.5 Allergy status to narcotic agent; Z88.7 Allergy status to serum and vaccine; Z88.0 Allergy status to penicillin; Z79.84 Long term (current) use of oral hypoglycemic drugs; Z79.899 Other long term (current) drug therapy; Z79.82 Long term (current) use of aspirin
CPT/HCPCS: 99283; A9270; J7512

== ENCOUNTER 2022-11-28 01:25 | Emergency (ER) | payer MEDICARE, OTHER ==
[2022-11-28 02:47] VITALS: BP 140/80; PULSE 76
[2022-11-28] MEDS ORDERED: Sodium Chloride 0.9% 10 ML Syringe FLUSH PRN (02:48)
[2022-11-28] MEDS ORDERED: HYDROmorphone 1 MG/ML Syringe IVPUSH ONE (02:49)
[2022-11-28] MEDS ORDERED: Ketorolac 15 MG/ML SDV IVPUSH ONE (05:00)
[2022-11-28] MEDS ORDERED: Acetaminophen/oxyCODONE 325-5 MG Tab PO ONE (05:25)
== END 2022-11-28 05:49 | disposition home or self-care (01) ==
LOC: JD.ED 01:25
DX: M54.41 Lumbago with sciatica, right side (principal); E78.00 Pure hypercholesterolemia, unspecified; I10 Essential (primary) hypertension; J45.909 Unspecified asthma, uncomplicated; K21.9 Gastro-esophageal reflux disease without esophagitis; M19.90 Unspecified osteoarthritis, unspecified site; E11.9 Type 2 diabetes mellitus without complications; E66.9 Obesity, unspecified; Z68.41 Body mass index [BMI] 40.0-44.9, adult; Z88.1 Allergy status to other antibiotic agents; Z88.8 Allergy status to other drugs, medicaments and biological substances; Z88.7 Allergy status to serum and vaccine; Z88.0 Allergy status to penicillin; Z79.899 Other long term (current) drug therapy; Z79.84 Long term (current) use of oral hypoglycemic drugs
CPT/HCPCS: 72100; 96374; 96375; 99283; A9270; J1170; J1885; J3490

== ENCOUNTER 2022-12-18 11:30 | Emergency (ER) | payer MEDICARE, OTHER ==
[2022-12-18 11:39] VITALS: BP 141/74; PULSE 83
[2022-12-18] MEDS ORDERED: HYDROmorphone 0.5 MG/0.5 ML Syringe IVPUSH ONE (11:46)
== END 2022-12-18 14:23 | disposition home or self-care (01) ==
LOC: JD.ED 11:30
DX: G89.18 Other acute postprocedural pain (principal); M54.50 Low back pain, unspecified; I10 Essential (primary) hypertension; E78.00 Pure hypercholesterolemia, unspecified; J45.909 Unspecified asthma, uncomplicated; K21.9 Gastro-esophageal reflux disease without esophagitis; M19.90 Unspecified osteoarthritis, unspecified site; E11.9 Type 2 diabetes mellitus without complications; E66.9 Obesity, unspecified; Z68.41 Body mass index [BMI] 40.0-44.9, adult; Z88.1 Allergy status to other antibiotic agents; Z88.5 Allergy status to narcotic agent; Z88.7 Allergy status to serum and vaccine; Z88.0 Allergy status to penicillin; Z79.84 Long term (current) use of oral hypoglycemic drugs; Z79.01 Long term (current) use of anticoagulants; Z79.899 Other long term (current) drug therapy
CPT/HCPCS: 96374; 99283; J1170; 99284

== ENCOUNTER 2022-12-22 09:31 | Inpatient (IN) | payer MEDICARE, OTHER ==
[2022-12-22] MEDS ORDERED: Sodium Chloride 0.9% 10 ML Syringe FLUSH PRN (10:02)
[2022-12-22] MEDS ORDERED: HYDROmorphone 1 MG/ML Syringe IVPUSH ONE ×2 (10:09→12:15)
[2022-12-22] MEDS ORDERED: Ondansetron 4 MG/2 ML SDV IVPUSH ONE (13:40)
[2022-12-22] MEDS ORDERED: Docusate Sodium 100 MG Cap PO PRN (15:29)
[2022-12-22] MEDS ORDERED: Acetaminophen/oxyCODONE 325-5 MG Tab PO PRN (15:29)
[2022-12-22] MEDS ORDERED: hydrALAZINE 20 MG/ML SDV IVPUSH PRN (15:29)
[2022-12-22] MEDS ORDERED: Heparin Sodium 5,000 Units/ML Vial SUBCUT SCH (15:30)
[2022-12-22] MEDS ORDERED: guaiFENesin 600 MG Tab.ER PO PRN (15:31)
[2022-12-22] MEDS ORDERED: Cyclobenzaprine 10 MG Tab PO PRN (15:31)
[2022-12-22] MEDS ORDERED: Albuterol 6.7 GM Inhaler INH PRN (15:31)
[2022-12-22] MEDS ORDERED: Losartan 50 MG Tab PO SCH (15:45)
[2022-12-22] MEDS: HYDROmorphone 1 MG/ML Syringe IVPUSH PRN ×2 (17:13→23:36)
[2022-12-22] MEDS: Acetaminophen/oxyCODONE 325-5 MG Tab PO PRN (19:52)
[2022-12-22] MEDS: amLODIPine 10 MG Tab PO SCH (19:54)
[2022-12-22] MEDS: Montelukast 10 MG Tab PO SCH ×2 (19:55→20:58)
[2022-12-22] MEDS: Metoprolol Succinate 50 MG Tab.ER PO SCH ×2 (19:55→20:58)
[2022-12-22] MEDS: Formoterol/Mometasone 100-5 MCG 8.8 GM Inhaler IH SCH (20:51)
[2022-12-22] MEDS: Rivaroxaban 10 MG Tab PO SCH (20:57)
[2022-12-22] MEDS ORDERED: Metoprolol Succinate 25 MG Tab.ER PO SCH (21:00)
[2022-12-23] MEDS: Ondansetron 4 MG/2 ML SDV IVPUSH PRN ×3 (00:18→10:43)
[2022-12-23] MEDS: Acetaminophen/oxyCODONE 325-5 MG Tab PO PRN ×5 (00:56→22:34)
[2022-12-23] MEDS: HYDROmorphone 1 MG/ML Syringe IVPUSH PRN ×2 (03:55→10:40)
[2022-12-23] MEDS: Rosuvastatin 10 MG Tab PO SCH (08:19)
[2022-12-23] MEDS: Metoprolol Succinate 50 MG Tab.ER PO SCH ×2 (08:19→22:35)
[2022-12-23] MEDS: Multivitamin Tab PO SCH (08:19)
[2022-12-23] MEDS: Pantoprazole 40 MG Tab.CR PO SCH (08:20)
[2022-12-23] MEDS: Losartan 100 MG Tab PO SCH (08:20)
[2022-12-23] MEDS: Formoterol/Mometasone 100-5 MCG 8.8 GM Inhaler IH SCH ×2 (08:23→20:39)
[2022-12-23] MEDS ORDERED: Rivaroxaban 10 MG Tab PO SCH (09:00)
[2022-12-23] MEDS ORDERED: Scopolamine 1.5 MG Transdermal Patch TOP ONE (11:34)
[2022-12-23] MEDS: amLODIPine 10 MG Tab PO SCH (18:03)
[2022-12-23] MEDS: Montelukast 10 MG Tab PO SCH (22:35)
[2022-12-23] MEDS: Rivaroxaban 10 MG Tab PO SCH (22:35)
[2022-12-24] MEDS: Acetaminophen/oxyCODONE 325-5 MG Tab PO PRN ×4 (04:36→22:10)
[2022-12-24] MEDS: HYDROmorphone 1 MG/ML Syringe IVPUSH PRN ×3 (05:49→22:55)
[2022-12-24] MEDS: Ondansetron 4 MG/2 ML SDV IVPUSH PRN ×3 (05:50→22:55)
[2022-12-24] MEDS: Pantoprazole 40 MG Tab.CR PO SCH (08:30)
[2022-12-24] MEDS: Multivitamin Tab PO SCH (08:30)
[2022-12-24] MEDS: Metoprolol Succinate 50 MG Tab.ER PO SCH ×2 (08:30→21:10)
[2022-12-24] MEDS: Losartan 100 MG Tab PO SCH (08:30)
[2022-12-24] MEDS: Rosuvastatin 10 MG Tab PO SCH (08:30)
[2022-12-24] MEDS: Formoterol/Mometasone 100-5 MCG 8.8 GM Inhaler IH SCH ×2 (09:05→19:54)
[2022-12-24] MEDS: Acetaminophen 325 MG Tab PO PRN (13:03)
[2022-12-24] MEDS: amLODIPine 10 MG Tab PO SCH (18:20)
[2022-12-24] MEDS: Psyllium Husk Powder Sugar Free 5.85 GM Packet PO PRN (18:58)
[2022-12-24] MEDS: Rivaroxaban 10 MG Tab PO SCH (21:09)
[2022-12-24] MEDS: Saccharomyces Boulardii (Probiotic) 250 MG Cap PO SCH (21:10)
[2022-12-24] MEDS: Doxycycline Monohydrate 100 MG Cap PO SCH (21:10)
[2022-12-24] MEDS: Montelukast 10 MG Tab PO SCH (21:10)
[2022-12-25] MEDS: Formoterol/Mometasone 100-5 MCG 8.8 GM Inhaler IH SCH ×3 (00:11→20:44)
[2022-12-25] MEDS: Acetaminophen/oxyCODONE 325-5 MG Tab PO PRN ×5 (02:58→20:17)
[2022-12-25] MEDS: Losartan 100 MG Tab PO SCH (09:03)
[2022-12-25] MEDS: Rosuvastatin 10 MG Tab PO SCH (09:04)
[2022-12-25] MEDS: Multivitamin Tab PO SCH (09:04)
[2022-12-25] MEDS: Saccharomyces Boulardii (Probiotic) 250 MG Cap PO SCH ×2 (09:04→20:20)
[2022-12-25] MEDS: Metoprolol Succinate 50 MG Tab.ER PO SCH ×2 (09:04→20:18)
[2022-12-25] MEDS: Pantoprazole 40 MG Tab.CR PO SCH (09:04)
[2022-12-25] MEDS: Doxycycline Monohydrate 100 MG Cap PO SCH ×2 (09:04→20:18)
[2022-12-25] MEDS: HYDROmorphone 1 MG/ML Syringe IVPUSH PRN ×2 (09:18→20:12)
[2022-12-25] MEDS: Ondansetron 4 MG/2 ML SDV IVPUSH PRN (09:25)
[2022-12-25] MEDS: Docusate Sodium 100 MG Cap PO SCH ×2 (10:34→20:19)
[2022-12-25] MEDS: Polyethylene Glycol 3350 Powder 17 GM Packet PO SCH (10:34)
[2022-12-25] MEDS: Psyllium Husk Powder Sugar Free 5.85 GM Packet PO SCH (10:35)
[2022-12-25] MEDS: Acetaminophen 325 MG Tab PO PRN (14:04)
[2022-12-25] MEDS: Montelukast 10 MG Tab PO SCH (20:18)
[2022-12-25] MEDS: Rivaroxaban 10 MG Tab PO SCH (20:20)
[2022-12-25] MEDS: Psyllium Husk Powder Sugar Free 5.85 GM Packet PO PRN (20:38)
[2022-12-25] MEDS: amLODIPine 10 MG Tab PO SCH (20:39)
[2022-12-25] MEDS: Cyclobenzaprine 10 MG Tab PO PRN (23:26)
[2022-12-26] MEDS: HYDROmorphone 1 MG/ML Syringe IVPUSH PRN (04:28)
[2022-12-26] MEDS: Acetaminophen/oxyCODONE 325-5 MG Tab PO PRN ×3 (04:31→21:39)
[2022-12-26] MEDS: Formoterol/Mometasone 100-5 MCG 8.8 GM Inhaler IH SCH ×2 (09:21→20:19)
[2022-12-26] MEDS: Polyethylene Glycol 3350 Powder 17 GM Packet PO SCH (09:34)
[2022-12-26] MEDS: Metoprolol Succinate 50 MG Tab.ER PO SCH ×2 (09:34→20:41)
[2022-12-26] MEDS: Saccharomyces Boulardii (Probiotic) 250 MG Cap PO SCH ×2 (09:35→20:42)
[2022-12-26] MEDS: Multivitamin Tab PO SCH (09:35)
[2022-12-26] MEDS: Losartan 100 MG Tab PO SCH (09:35)
[2022-12-26] MEDS: Rosuvastatin 10 MG Tab PO SCH (09:35)
[2022-12-26] MEDS: Docusate Sodium 100 MG Cap PO SCH ×2 (09:36→20:43)
[2022-12-26] MEDS: Pantoprazole 40 MG Tab.CR PO SCH (09:36)
[2022-12-26] MEDS: Doxycycline Monohydrate 100 MG Cap PO SCH ×2 (09:36→20:42)
[2022-12-26] MEDS: Psyllium Husk Powder Sugar Free 5.85 GM Packet PO SCH (09:37)
[2022-12-26] MEDS ORDERED: Polyethylene Glycol/Electrolytes 4,000 ML Bottle PO ONE ×2 (10:30→13:00)
[2022-12-26] MEDS ORDERED: Remove Patch *SCOPOLAMINE TRDERM ONE (11:45)
[2022-12-26] MEDS: Acetaminophen 325 MG Tab PO PRN (17:36)
[2022-12-26] MEDS: amLODIPine 10 MG Tab PO SCH (18:08)
[2022-12-26] MEDS: Cyclobenzaprine 10 MG Tab PO PRN (20:39)
[2022-12-26] MEDS: Montelukast 10 MG Tab PO SCH (20:42)
[2022-12-26] MEDS: Rivaroxaban 10 MG Tab PO SCH (20:42)
[2022-12-27] MEDS: Formoterol/Mometasone 100-5 MCG 8.8 GM Inhaler IH SCH ×2 (08:34→21:22)
[2022-12-27] MEDS: Acetaminophen/oxyCODONE 325-5 MG Tab PO PRN ×3 (08:37→19:22)
[2022-12-27] MEDS: Psyllium Husk Powder Sugar Free 5.85 GM Packet PO SCH (08:59)
[2022-12-27] MEDS: Rosuvastatin 10 MG Tab PO SCH (09:00)
[2022-12-27] MEDS: Losartan 100 MG Tab PO SCH (09:00)
[2022-12-27] MEDS: Multivitamin Tab PO SCH (09:00)
[2022-12-27] MEDS: Saccharomyces Boulardii (Probiotic) 250 MG Cap PO SCH ×2 (09:03→21:57)
[2022-12-27] MEDS: Metoprolol Succinate 50 MG Tab.ER PO SCH ×2 (09:03→21:57)
[2022-12-27] MEDS: Polyethylene Glycol 3350 Powder 17 GM Packet PO SCH (09:04)
[2022-12-27] MEDS: Docusate Sodium 100 MG Cap PO SCH ×2 (09:04→21:57)
[2022-12-27] MEDS: Pantoprazole 40 MG Tab.CR PO SCH (09:04)
[2022-12-27] MEDS: Doxycycline Monohydrate 100 MG Cap PO SCH (09:05)
[2022-12-27] MEDS: Acetaminophen 325 MG Tab PO SCH ×2 (15:27→21:58)
[2022-12-27] MEDS: amLODIPine 10 MG Tab PO SCH (19:21)
[2022-12-27] MEDS: Cyclobenzaprine 10 MG Tab PO PRN (21:57)
[2022-12-27] MEDS: Rivaroxaban 10 MG Tab PO SCH (21:57)
[2022-12-27] MEDS: Montelukast 10 MG Tab PO SCH (21:57)
[2022-12-28] MEDS: Acetaminophen 325 MG Tab PO PRN (02:26)
[2022-12-28] MEDS: Acetaminophen/oxyCODONE 325-5 MG Tab PO PRN ×2 (08:19→12:39)
[2022-12-28] MEDS: Losartan 100 MG Tab PO SCH (08:20)
[2022-12-28] MEDS: Docusate Sodium 100 MG Cap PO SCH (08:20)
[2022-12-28] MEDS: Multivitamin Tab PO SCH (08:20)
[2022-12-28] MEDS: Pantoprazole 40 MG Tab.CR PO SCH (08:21)
[2022-12-28] MEDS: Saccharomyces Boulardii (Probiotic) 250 MG Cap PO SCH (08:21)
[2022-12-28] MEDS: Metoprolol Succinate 50 MG Tab.ER PO SCH (08:21)
[2022-12-28] MEDS: Rosuvastatin 10 MG Tab PO SCH (08:21)
[2022-12-28] MEDS: Polyethylene Glycol 3350 Powder 17 GM Packet PO SCH (08:23)
[2022-12-28] MEDS: Psyllium Husk Powder Sugar Free 5.85 GM Packet PO SCH (08:23)
[2022-12-28] MEDS: Acetaminophen 325 MG Tab PO SCH (08:23)
[2022-12-28] MEDS: Formoterol/Mometasone 100-5 MCG 8.8 GM Inhaler IH SCH (08:40)
[2022-12-28 13:38] VITALS: BP 120/75; PULSE 82
== END 2022-12-28 13:00 | DRG 948 ==
LOC: JD.ED 09:31 → JD.MS 14:49
PROVIDERS: ADMIT Internal Medicine; ATTEND Internal Medicine
DX: G89.18 Other acute postprocedural pain (principal); I50.32 Chronic diastolic (congestive) heart failure; Z68.41 Body mass index [BMI] 40.0-44.9, adult; M54.50 Low back pain, unspecified; I11.0 Hypertensive heart disease with heart failure; E78.5 Hyperlipidemia, unspecified; F41.9 Anxiety disorder, unspecified; F32.A Depression, unspecified; Z20.822 Contact with and (suspected) exposure to COVID-19; G47.33 Obstructive sleep apnea (adult) (pediatric); J45.20 Mild intermittent asthma, uncomplicated; K21.9 Gastro-esophageal reflux disease without esophagitis; H54.7 Unspecified visual loss; E78.00 Pure hypercholesterolemia, unspecified; G51.0 Bell's palsy; Z96.659 Presence of unspecified artificial knee joint; K59.03 Drug induced constipation; T40.2X5A Adverse effect of other opioids, initial encounter; E11.9 Type 2 diabetes mellitus without complications; M19.90 Unspecified osteoarthritis, unspecified site; Z85.118 Personal history of other malignant neoplasm of bronchus and lung; Z98.890 Other specified postprocedural states; E66.01 Morbid (severe) obesity due to excess calories; Z88.7 Allergy status to serum and vaccine; Z88.0 Allergy status to penicillin; Z79.84 Long term (current) use of oral hypoglycemic drugs; Z79.899 Other long term (current) drug therapy; Z90.710 Acquired absence of both cervix and uterus; Z90.49 Acquired absence of other specified parts of digestive tract
CPT/HCPCS: 36415; 80048; 81003; 85025; 85027; 94640; 94760; 94761; 94762; 96374; 96375; 96376; 97116-GP; 97162-GP; 97166-GO; 97530-GO; 99222; 99232; 99239; 99285; 99285-25; A9270-GY; J1170; J2405; J3490; U0002

== ENCOUNTER 2023-01-02 22:31 | Emergency (ER) | payer MEDICARE, OTHER ==
[2023-01-03] MEDS ORDERED: HYDROmorphone 1 MG/ML Syringe IM ONE
[2023-01-03] MEDS ORDERED: Sodium Chloride 0.9% 10 ML Syringe FLUSH PRN (00:46)
[2023-01-03] MEDS ORDERED: HYDROmorphone 0.5 MG/0.5 ML Syringe IVPUSH ONE ×3 (00:47→08:22)
[2023-01-03] MEDS ORDERED: HYDROmorphone 0.5 MG/0.5 ML Syringe ONE (00:48)
[2023-01-03] MEDS ORDERED: Clindamycin Phosphate in D5W 900 MG in Premix Bag 1 BAG IV ONE ×2 (00:54)
[2023-01-03] MEDS ORDERED: HYDROmorphone 1 MG/ML Syringe IVPUSH ONE ×2 (11:11→14:43)
[2023-01-03] MEDS ORDERED: Ondansetron 4 MG/2 ML SDV IVPUSH ONE (12:44)
[2023-01-03] MEDS ORDERED: Metoclopramide 10 MG/2 ML SDV ONE (15:37)
[2023-01-03] MEDS ORDERED: Metoclopramide 10 MG/2 ML SDV IVPUSH ONE (15:37)
[2023-01-03 16:01] VITALS: BP 143/68; PULSE 89
== END 2023-01-03 15:45 ==
LOC: JD.ED 22:31
DX: M46.46 Discitis, unspecified, lumbar region (principal); I48.91 Unspecified atrial fibrillation; I10 Essential (primary) hypertension; K21.9 Gastro-esophageal reflux disease without esophagitis; J45.909 Unspecified asthma, uncomplicated; E11.9 Type 2 diabetes mellitus without complications; E66.9 Obesity, unspecified; Z88.7 Allergy status to serum and vaccine; Z88.1 Allergy status to other antibiotic agents; Z88.0 Allergy status to penicillin; Z79.899 Other long term (current) drug therapy; Z86.16 Personal history of COVID-19; Z68.41 Body mass index [BMI] 40.0-44.9, adult
CPT/HCPCS: 36415; 74176; 80053; 85025; 87040; 87154; 96365; 96375; 96376; 99285; J1170; J2405; J2765; J3490; 87077; 87186

== ENCOUNTER 2024-04-04 23:03 | Emergency (ER) | payer MEDICARE, OTHER ==
[2024-04-04 23:15] VITALS: PULSE 60
[2024-04-05] MEDS: Aspirin 81 MG Tab.Chew PO ONE (00:48)
[2024-04-05 00:52] LABS: BASOPHILS PERCENT AUTO 0.2 % (0.0-1.0); EOSINOPHILS ABSOLUTE AUTO 0.1 K/mm3 (0.0-0.4); EOSINOPHILS PERCENT AUTO 0.6 % (0.0-6.0); HEMATOCRIT 42.2 % (37.0-47.0); IMMATURE GRAN ABSOLUTE AUTO 0.06 K/mm3 (0.00-0.05); IMMATURE GRAN PERCENT AUTO 0.5 % (0.0-0.4); LYMPHOCYTES ABSOLUTE AUTO 2.4 K/mm3 (1.0-4.8); LYMPHOCYTES PERCENT AUTO 19.6 % (24.0-44.0); MEAN CORPUSCULAR HEMOGLOBIN 28.7 pg (28.0-32.0); MEAN CORPUSCULAR HGB CONC 33.2 g/dl (32.0-36.0); MEAN CORPUSCULAR VOLUME 86.5 fl (83.0-99.0); MEAN PLATELET VOLUME 10.4 fl (9.4-12.3); MONOCYTES PERCENT AUTO 7.7 % (0.0-8.0); NEUTROPHILS ABSOLUTE AUTO 8.9 K/mm3 (1.8-7.7); NEUTROPHILS PERCENT AUTO 71.4 % (41.0-71.0); PLATELET COUNT,PLT 250 K/mm3 (150-400); RED BLOOD CELL COUNT 4.88 M/mm3 (4.10-5.30); WHITE BLOOD CELL COUNT,WBC 12.41 K/mm3 (3.9-11.3)
[2024-04-05 00:57] LABS: APPEARANCE,URINE CLEAR (Clear); BILIRUBIN,URINE NEGATIVE (Negative); COLOR,URINE LIGHT YELLOW (Yellow); GLUCOSE,URINE 3+ (Negative); KETONES,URINE NEGATIVE (Negative); LEUKOCYTE ESTERASE,URINE NEGATIVE (Negative); NITRITE,URINE NEGATIVE (Negative); OCCULT BLOOD,URINE NEGATIVE (Negative); PROTEIN,URINE NEGATIVE (Negative); UROBILINOGEN,URINE 0.2 (0.2-1.0)
[2024-04-05 01:17] LABS: A/G RATIO 1.3 (1-2); ALBUMIN 4.2 g/dl (3.4-5.0); BILIRUBIN TOTAL 0.3 mg/dL (0.2-1.0); BUN/CREATININE RATIO 20.9 (14-18); CALCIUM 9.3 mg/dL (8.5-10.1); CREATININE 1.1 mg/dL (0.55-1.02); EST CRCL DRUG DOSING (CG) 42.27 mL/min; MAGNESIUM 1.7 mg/dL (1.8-2.4); PROTEIN TOTAL,TP 7.4 g/dl (6.4-8.2)
[2024-04-05] MEDS ORDERED: Magnesium Sulfate (4.06 MEQ/ML) 5 GM/10 ML SDV IV ONE (01:30)
[2024-04-05 01:42] LABS: CORONAVIRUS COVID-19 NAA NEGATIVE (NEGATIVE); INFLUENZA A NAA NEGATIVE (NEGATIVE); RESPIRATORY SYNCYTIAL VIR NAA NEGATIVE (NEGATIVE)
[2024-04-05] MEDS: Sodium Chloride 0.9% 100 ML IV SCH (01:51)
[2024-04-05] MEDS: Sodium Chloride 0.9% 10 ML Syringe FLUSH ONE (01:51)
[2024-04-05] MEDS: Iopamidol 755 Mg/ML 100 ML Bottle IVPUSH ONE (01:51)
[2024-04-05] MEDS: Potassium Chloride 20 MEQ Tab.ER PO ONE (01:58)
[2024-04-05] MEDS: Potassium Chloride 10 MEQ in Premix Bag 1 BAG IV ONE ×2 (01:59→03:10)
[2024-04-05] MEDS: Sodium Chloride 0.9% 1,000 ML IV ONE (02:00)
[2024-04-05] MEDS: Magnesium Sulfate/Water 2 GM in Premix Bag 1 BAG IV ONE (02:00)
[2024-04-05 04:22] VITALS: BP 124/74
== END 2024-04-05 04:20 | disposition home or self-care (01) ==
LOC: JD.ED 23:03
DX: E86.9 Volume depletion, unspecified (principal); N17.9 Acute kidney failure, unspecified; E87.6 Hypokalemia; E83.42 Hypomagnesemia; E87.1 Hypo-osmolality and hyponatremia; I48.91 Unspecified atrial fibrillation; I10 Essential (primary) hypertension; E78.00 Pure hypercholesterolemia, unspecified; E11.9 Type 2 diabetes mellitus without complications; Z88.8 Allergy status to other drugs, medicaments and biological substances; Z88.7 Allergy status to serum and vaccine; Z88.0 Allergy status to penicillin; Z79.01 Long term (current) use of anticoagulants; Z79.899 Other long term (current) drug therapy; Z95.0 Presence of cardiac pacemaker; Z90.49 Acquired absence of other specified parts of digestive tract; Z90.710 Acquired absence of both cervix and uterus; R07.2 Precordial pain
CPT/HCPCS: 0241U; 36415; 71045; 71275; 80053; 81003; 83690; 83735; 84484; 85025; 85379; 93005; 96365; 96366; 96368; 99285; A9270; J3475; J3480; J3490; J7030; Q9967; 93010; 99284